=== PATIENT | female | born 1975 | race Hispanic/Latino ===

== ENCOUNTER 2018-04-13 11:28 | Emergency (ER) | payer OTHER, MEDICARE ==
[~2018-04-13] VITALS: Ht 154.9 cm; Wt 150.1 kg
[~2018-04-13 11:28] MED LIST: ADVAIR 500/501 EA INH; ALBUTEROL SULF8.5 GM INH; ASPIR 8181 MG PO; BUMETANIDE1 MG PO; CITALOPRAM HBR20 MG PO; CLONAZEPAM0.5 M1 PO; CLONIDINE HCL0.2 MG PO; COMBIVENT RESPIM4 GM IH; COREG6.25 MG PO; DICYCLOMINE HCL20 MG PO; FERROUS SULFAT325 MG PO; GLIPIZIDE10 MG PO; GLIPIZIDE5 MG PO; HEMOCYTE PLUS1 EACH PO; HYDRALAZINE HCL25 MG PO; ISOSORBIDE MONO30 MG PO; KLONOPIN0.5 MG PO; LASIX20 MG PO; LASIX40 MG PO; LEVEMIR100 UNIT/1 SC; LEVEMIR100 UNIT/1 SQ; LISINOPRIL40 MG PO; METFORMIN HCL500 MG PO; NIFEDIPINE ER30 M1 PO; NORVASC10 MG PO; PANTOPRAZOLE SO40 MG PO; POTASSIUM CHLO20 ME1 PO; PRO AIR; PROAIR HFA INH8.5 GM INH; PROCARDIA XL30 MG PO; RAMIPRIL10 MG PO; SENNA-S TABLET1 EA PO; TYLENOL # 31 EA PO; Trintellix PO; ULTRAM 50MG50 MG PO; WELLBUTRIN XL150 MG PO; XANAX0.25 MG PO; ZOFRAN ODT4 MG SL; ZOFRAN4 MG PO; [UNRECOGNIZED DRUG - OTHER] PO; [UNRECOGNIZED DRUG - OTHER] PO
--- OUTSIDE RECORDS SUMMARY | 2018-04-13 11:32 | XMS REPORT ---
Author Author Admin, [place] Organization [facility] Address [address] [address] Phone Allergies, Adverse Reactions, Alerts Allergy Name Reaction Description Start Date Severity Status Provider No Known Allergies Iza Bledsoe DIE TECHNICIAN Conditions or Problems Problem Name Problem Code Onset Date Status Entry Date Provider Comment Standard Description Annotate COPD, acute exacerbation 491.21 Active Roxana Averyt Obstructive chronic bronchitis with (acute) exacerbation Intertrigo 695.89 Active Roxana Averyt Other specified erythematous conditions Poor dentition 520.9 Active Roxana Averyt Unspecified disorder of tooth development and eruption Tinea pedis 110.4 Active Roxana Averyt Dermatophytosis of foot Annual exam V72.31 Active Roxana Averyt Routine gynecological examination Anxiety, chronic 300.00 Active Roxana Averyt Anxiety state, unspecified BMI 50.0-59.9 Active Roxana Averyt Body Mass Index 50.0-59.9, adult Congestive heart failure 428.0 Active Roxana Averyt Congestive heart failure, unspecified Depression, major 296.20 Active Roxana Averyt Major depressive disorder, single episode, unspecified degree Diabetes mellitus type II 250.00 Active Roxana Averyt Diabetes mellitus without mention of complication, type II or unspecified type, not stated as uncontrolled End stage chronic obstructive airways disease 496 Active Roxana Averyt Chronic airway obstruction, not elsewhere classified End stage renal disease 585.6 Active Roxana Averyt End stage renal disease Hemodialysis V45.11 Active Roxana Averyt Renal dialysis status MORBID OBESITY Active Roxana Averyt Morbid obesity Screening for anemia V78.1 Active Roxana Averyt Screening for other and unspecified deficiency anemia Screening for hyperlipidemia V77.91 Active Roxana Averyt Screening for lipoid disorders Screening for metabolic disorder V77.99 Active Roxana Averyt Screening for other and unspecified endocrine, nutritional, metabolic, and immunity disorders Screening for thyroid disorder V77.0 Active Roxana Averyt Screening for thyroid disorders Renal failure 586 Inactive Roxana Averyt Renal failure, unspecified Medication List Medication Instructions Start Date Stop Date Generic Name NDC Status Provider Patient Instruction AZITHROMYCIN 250 MG ORAL TABLET 2 tablets by mouth on day one then one tablet by mouth each day for a total of 5 days AZITHROMYCIN 34238034890 Active Roxana Averyt Active HYDROCORTISONE 2.5 % EXTERNAL CREAM apply to affected area twice a day under breast for severe red and itchy skin HYDROCORTISONE 40852502540 Active Roxana Averyt Active PREDNISONE 20 MG ORAL TABLET 2 tablets every day for 3 days PREDNISONE 44588084024 Active Roxana Averyt Active TERBINAFINE HCL 1 % EXTERNAL CREAM apply to itchy red skin under breast and on foot daily until resolution of rash TERBINAFINE HCL 80511800632 Active Roxana Averyt Active Vital Signs Date Name Value Unit Range Description blood pressure, diastolic 69 mm[Hg] BP rudd blood pressure, systolic 100 mm[Hg] BP sys height E&M 61 [in_us] Bdy height pulse rate E&M 95 /min Heart rate temperature E&M 98.7 [degF] Body temperature weight E&M 312.38 [lb_av] Weight Measured blood pressure, diastolic 74 mm[Hg] BP rudd blood pressure, systolic 118 mm[Hg] BP sys height E&M 61 [in_us] Bdy height pulse rate E&M 92 /min Heart rate respiratory rate E&M 15 /min Resp rate temperature E&M 98.8 [degF] Body temperature weight E&M 301.38 [lb_av] Weight Measured Diagnostic Results Date Name Value Unit Range Description Lab Report: CBC With Differential/Platelet, Comp. Metabolic Panel (14), ... - Chemistry thyroid stimulating hormone, serum 2.120 u[iU]/mL 0.450-4.500 very low density lipoproteins 39 mg/dL 5-40 chloride, serum 91 mmol/L 96-106 urea nitrogen, blood 29 mg/dL 6-24 Lab Report: CBC With Differential/Platelet, Comp. Metabolic Panel (14), ... - Hematology mean corpuscular hemoglobin concentration, RBC 32.6 G/DL % 31.5-35.7 erythrocyte (RBC) count 3.95 X10E6/UL 10*6/mm3 3.77-5.28 Lab Report: CBC With Differential/Platelet, Comp. Metabolic Panel (14), ... - Chemistry Absolute Neutrophils 6.2 X10E3/UL 10*3/uL 1.4-7.0 LDL cholesterol, serum 107 mg/dL 0-99 urea nitrogen/creatinine ratio, serum 6 9-23 Lab Report: CBC With Differential/Platelet, Comp. Metabolic Panel (14), ... - Hematology mean corpuscular volume, RBC 96 fL 79-97 Lab Report: CBC With Differential/Platelet, Comp. Metabolic Panel (14), ... - Chemistry HDL cholesterol, serum 58 mg/dL >39 Lab Report: CBC With Differential/Platelet, Comp. Metabolic Panel (14), ... - Hematology monocytes as percent of blood leukocytes 8 % Not Estab. Lab Report: CBC With Differential/Platelet, Comp. Metabolic Panel (14), ... - Chemistry albumin/globulin ratio, serum 1.3 1.2-2.2 creatinine, serum 5.11 mg/dL 0.57-1.00 cholesterol, serum 204 mg/dL 906-104 2493/11/02 bilirubin, serum, total 0.4 mg/dL 0.0-1.2 Lab Report: CBC With Differential/Platelet, Comp. Metabolic Panel (14), ... - Hematology Eosinophil Absolute Count 0.1 X10E3/UL 10*3/uL 0.0-0.4 Lab Report: Ct, Ng, Trich vag by HI - Lab chlamydia DNA probe Negative Negative Lab Report: CBC With Differential/Platelet, Comp. Metabolic Panel (14), ... - Chemistry aspartate aminotransferase (SGOT), serum 24 U/L 0-40 Lab Report: CBC With Differential/Platelet, Comp. Metabolic Panel (14), ... - Hematology red blood cell distribution width 16.4 % 12.3-15.4 leukocyte count, blood 9.5 X10E3/UL 10*3/mm3 3.4-10.8 Lab Report: CBC With Differential/Platelet, Comp. Metabolic Panel (14), ... - Chemistry potassium, serum 4.6 mmol/L 3.5-5.2 albumin, serum 4.4 g/dL 3.5-5.5 immature granulocytes, percentage of total cells, blood 0 % Not Estab. Lab Report: CBC With Differential/Platelet, Comp. Metabolic Panel (14), ... - Hematology lymphocyte count, blood, automated 2.4 X10E3/UL 10*3/mm3 0.7-3.1 hematocrit, blood 38.0 % 34.0-46.6 Lab Report: Ct, Ng, Trich vag by HI - Microbiology Neisseria gonorrhoeae DNA probe Negative Negative Lab Report: CBC With Differential/Platelet, Comp. Metabolic Panel (14), ... - Chemistry sodium, serum 140 mmol/L 134-144 Lab Report: CBC With Differential/Platelet, Comp. Metabolic Panel (14), ... - Hematology neutrophils as percent of blood leukocytes 65 % Not Estab. basophils as percent of blood leukocytes 0 % Not Estab. Lab Report: CBC With Differential/Platelet, Comp. Metabolic Panel (14), ... - Chemistry carbon dioxide, venous blood 28 mmol/L 20-29 triglyceride, serum, fasting 197 mg/dL 0-149 calcium, serum 9.8 mg/dL 8.7-10.2 alanine aminotransferase (SGPT), serum 34 U/L 0-32 Office Visit: Adult Followup - COPD exacerbation, DM II, skin concern - Chemistry blood glucose, fasting 222 mg/dL Lab Report: CBC With Differential/Platelet, Comp. Metabolic Panel (14), ... - Hematology mean corpuscular hemoglobin, RBC 31.4 pg 26.6-33.0 Lab Report: CBC With Differential/Platelet, Comp. Metabolic Panel (14), ... - Chemistry protein, total, serum 7.9 g/dL 6.0-8.5 alkaline phosphatase, serum 160 U/L 39-117 Lab Report: CBC With Differential/Platelet, Comp. Metabolic Panel (14), ... - Hematology hemoglobin, blood 12.4 g/dL 11.1-15.9 lymphocytes as percent of blood leukocytes 25 % Not Estab. Lab Report: CBC With Differential/Platelet, Comp. Metabolic Panel (14), ... - Chemistry hemoglobin A1C, blood, as % of total hemoglobin 7.4 % 4.8-5.6 Lab Report: CBC With Differential/Platelet, Comp. Metabolic Panel (14), ... - Genetics/fertility eGFR if 11 mL/min/1.73m2 >59 Lab Report: CBC With Differential/Platelet, Comp. Metabolic Panel (14), ... - Hematology basophil count, absolute 0.0 x10E3/uL 0.0-0.2 Lab Report: CBC With Differential/Platelet, Comp. Metabolic Panel (14), ... - Chemistry globulin, serum 3.5 1.5-4.5 Estimated Glomerular Filtration Rate (calc) 10 mL/min/1.73m2 >59 Lab Report: CBC With Differential/Platelet, Comp. Metabolic Panel (14), ... - Hematology eosinophils as percent of blood leukocytes 2 % Not Estab. Lab Report: CBC With Differential/Platelet, Comp. Metabolic Panel (14), ... - Chemistry blood glucose, random 164 mg/dL 65-99 Lab Report: CBC With Differential/Platelet, Comp. Metabolic Panel (14), ... - Hematology monocyte count, blood, automated 0.7 X10E3/UL 10*3/uL 0.1-0.9 platelet count 337 X10E3/UL 10*3/mm3 150-379 Encounters Date Encounter Provider Code Facility 13:50:29 [facility] [employer] Est Patient Detailed - [id number] Roxana Lin [id number] [facility]
--- OUTSIDE RECORDS SUMMARY | 2018-04-13 11:32 | XMS REPORT ---
Author Author [facility] Address Unknown Phone Unavailable Care Team Providers Care Senior Application Security Consultant Name Role Phone CINDY BLOCK Unavailable Unavailable Problems This patient has no known problems. Allergies, Adverse Reactions, Alerts This patient has no known allergies or adverse reactions. Medications This patient has no known medications. Results Test Description Test Time Test Comments Text Results Atomic Results Result Comments IR CONSULT [place] [address] Patient Name: KENZIE AVENDAÑO MR #: [id number] : 1975 Age/Sex: 41/F Req #: [id number] Adm Physician: CINDY BLOCK MD Ordered by: MARLYN MELARA, BUFFY MELARA Report #: [id number] Location: [facility]/SURG3 Room/Bed: [facility] [place] Procedure: [id number] DX/IR CONSULT Exam Date: Exam Time: REPORT STATUS: Signed PROCEDURE: TUNNELED DIALYSIS CATHETER COMPARISON: Temporary central venous catheter placement 12/19/2016. INDICATIONS: Need for long-term central venous access. COMPLICATIONS: None. MEDICATIONS: None. BLOOD LOSS: 2.0 cc. PROCEDURE: The presence of multiple right internal jugular central venous catheters was noted. New access was chosen to decrease the likelihood of infection. The patient was placed supine on the angiography table. The right neck was prepped and draped in usual sterile fashion. 1% lidocaine was infused into the subcutaneous tissues for local anesthesia. Utilizing direct sonographic guidance, a 21 gauge needle was advanced into the right internal jugular vein. The 0.018 inch wire was advanced centrally and utilizing fluoroscopic guidance. An access sheath was placed over the wire to secure the vascular access. The wire was upsized to a 0.035 inch wire. Attention was directed toward the creation of the subcutaneous tunnel. One percent lidocaine was infused into the subcutaneous tissues for local anesthesia. A skin incision was made with a #11 blade. The catheter was advanced through the skin and out the venous access site. Serial dilations were performed over the wire. A peel-away sheath was advanced over the wire. The stylette and wire were removed. The catheter was placed into the peel-away sheath. The peel-away sheath was removed. The catheter tip was positioned within the right atrium. The lumens demonstrated proper function with aspiration and flush of saline. The lumens were flushed with sterile saline. The catheter was secured to the skin with 3-0 Ethilon suture. The venous access site was closed with a suture and Dermabond. There are no immediate complications. The patient tolerated the procedure well. The patient was transferred to the post procedure area in stable unchanged condition for further monitoring. Upon completion of the procedure, the patient had a right internal jugular tunneled central venous catheter, right internal jugular temporary central venous hemodialysis catheter, and right internal jugular temporary triple-lumen central venous catheter. CONCLUSION: Successful placement of a right internal jugular tunneled central venous hemodialysis catheter utilizing fluoroscopic and sonographic guidance. Dictated by: Cindy Paige M.D. on 01/07/2017 at 15:09 Electronically approved by: Cindy Paige M.D. on 01/07/2017 at 15:09 Dictated By: CINDY PAIGE MD 1504 Transcribed By: ENRIQUE on 01/07/17 1505 COPY TO: BUFFY CLINE SPECIAL PROCEDURE IN DIRECTOR RELIGIOUS EDUCATION [place] [address] Patient Name: KENZIE AVENDAÑO MR #: [id number] : 1975 Age/Sex: 41/F Req #: [id number] Adm Physician: CINDY BLOCK MD Ordered by: BUFFY CLINE MD, MD Report #: [id number] Location: MED/SURG3 Room/Bed: [facility] [place] Procedure: [id number] IR/SPECIAL PROCEDURE IN DIRECTOR RELIGIOUS EDUCATION Exam Date: Exam Time: REPORT STATUS: Signed PROCEDURE: TUNNELED DIALYSIS CATHETER COMPARISON: Temporary central venous catheter placement 12/19/2016. INDICATIONS: Need for long-term central venous access. COMPLICATIONS: None. MEDICATIONS: None. BLOOD LOSS: 2.0 cc. PROCEDURE: The presence of multiple right internal jugular central venous catheters was noted. New access was chosen to decrease the likelihood of infection. The patient was placed supine on the angiography table. The right neck was prepped and draped in usual sterile fashion. 1% lidocaine was infused into the subcutaneous tissues for local anesthesia. Utilizing direct sonographic guidance, a 21 gauge needle was advanced into the right internal jugular vein. The 0.018 inch wire was advanced centrally and utilizing fluoroscopic guidance. An access sheath was placed over the wire to secure the vascular access. The wire was upsized to a 0.035 inch wire. Attention was directed toward the creation of the subcutaneous tunnel. One percent lidocaine was infused into the subcutaneous tissues for local anesthesia. A skin incision was made with a #11 blade. The catheter was advanced through the skin and out the venous access site. Serial dilations were performed over the wire. A peel-away sheath was advanced over the wire. The stylette and wire were removed. The catheter was placed into the peel-away sheath. The peel-away sheath was removed. The catheter tip was positioned within the right atrium. The lumens demonstrated proper function with aspiration and flush of saline. The lumens were flushed with sterile saline. The catheter was secured to the skin with 3-0 Ethilon suture. The venous access site was closed with a suture and Dermabond. There are no immediate complications. The patient tolerated the procedure well. The patient was transferred to the post procedure area in stable unchanged condition for further monitoring. Upon completion of the procedure, the patient had a right internal jugular tunneled central venous catheter, right internal jugular temporary central venous hemodialysis catheter, and right internal jugular temporary triple-lumen central venous c atheter. CONCLUSION: Successful placement of a right internal jugular tunneled central venous hemodialysis catheter utilizing fluoroscopic and sonographic guidance. Dictated by: Cindy Paige M.D. on 01/07/2017 at 15:09 Electronically approved by: Cindy Paige M.D. on 01/07/2017 at 15:09 Dictated By: CINDY PAIGE MD 1501 Transcribed By: ENRIQUE on 01/07/17 1505 COPY TO: BUFFY CLINE CHEST SINGLE (PORTABLE) [place] [address] Patient Name: KENZIE AVENDAÑO MR #: [id number] : 1975 Age/Sex: 41/F Req #: [id number] Adm Physician: CINDY BLOCK MD Ordered by: RELL BAGLEY MD Report #: [id number] Location: ICU Room/Bed: ICU [facility] Procedure: [id number] DX/CHEST SINGLE (PORTABLE) Exam Date: 12/19/16 Exam Time: 0945 REPORT STATUS: Signed PROCEDURE: CHEST SINGLE (PORTABLE) COMPARISON: 12/19/2016 at 0539 INDICATIONS: Line placement FINDINGS: Interval placement of a right internal jugular non-tunneled hemodialysis catheter. The tip projects over the low superior vena cava. Endotracheal tube, enteric tube, and right internal jugular low flow central venous catheter are unchanged in appearance. Stable enlargement of the cardiac silhouette with interstitial pulmonary edema. No acute osseous abnormality. Exam is again limited by body habitus. CONCLUSION: Interval placement of a non-tunneled hemodialysis catheter, with the tip projecting over the low superior vena cava. Stable position of remaining support lines and tubes. Stable cardiomegaly and interstitial pulmonary edema. Dictated by: Rell Bagley M.D. on 12/19/2016 at 10:18 Electronically approved by: Rell Bagley M.D. on 12/19/2016 at 10:18 Dictated By: RELL BAGLEY MD 1018 Transcribed By: ENRIQUE on 12/19/16 1018 COPY TO: RELL BAGLEY MD CHEST SINGLE (PORTABLE) [place] [address] Patient Name: KENZIE AVENDAÑO MR #: [id number] : 1975 Age/Sex: 41/F Req #: [id number] Adm Physician: CINDY BLOCK MD Ordered by: RELL LESTER MD Report #: [id number] Location: ICU Room/Bed: ICU [facility] Procedure: [id number] DX/CHEST SINGLE (PORTABLE) Exam Date: 12/19/16 Exam Time: 0500 REPORT STATUS: Signed EXAM: CHEST SINGLE (PORTABLE), AP 1 view DATE: 12/19/2016 8:00 AM Time stamp on exam: 0539 hours INDICATION: Post intubation COMPARISON: AP view of the chest December 16, 2016 FINDINGS: LINES/TUBES: Endotracheal tube terminates 3 cm above the tammy. LUNGS: Limited evaluation of the lungs secondary to technique PLEURA: Limited evaluation HEART AND MEDIASTINUM: Interval enlargement of the cardiomediastinal silhouette. BONES AND SOFT TISSUES: No acute findings. IMPRESSION: Very limited view of the chest due to technique. The endotracheal tube terminates 3 cm above the tammy. Interval enlargement of the cardiomediastinal silhouette particularly the upper mediastinum. A repeat nonrotated exam is recommended. Signed by: Dr. Nneka Mcintosh M.D. on 12/19/2016 6:57 AM Dictated By: NNEKA MCINTOSH MD 6 Transcribed By: EZEKIEL on 12/19/16656 COPY TO: RELL LESTER MD IR CONSULT [place] [address] Patient Name: KENZIE AVENDAÑO MR #: [id number] : 1975 Age/Sex: 41/F Req #: [id number] Adm Physician: CINDY BLOCK MD Ordered by: MARLYN MELARA, BUFFY MELARA Report #: [id number] Location: ICU Room/Bed: ICU [facility] Procedure: [id number] DX/IR CONSULT Exam Date: Exam Time: REPORT STATUS: Signed PROCEDURE: CHEST SINGLE (PORTABLE) COMPARISON: 12/19/2016 at 0539 INDICATIONS: Line placement FINDINGS: Interval placement of a right internal jugular non-tunneled hemodialysis catheter. The tip projects over the low superior vena cava. Endotracheal tube, enteric tube, and right internal jugular low flow central venous catheter are unchanged in appearance. Stable enlargement of the cardiac silhouette with interstitial pulmonary edema. No acute osseous abnormality. Exam is again limited by body habitus. CONCLUSION: Interval placement of a non-tunneled hemodialysis catheter, with the tip projecting over the low superior vena cava. Stable position of remaining support lines and tubes. Stable cardiomegaly and interstitial pulmonary edema. Dictated by: Rell Bagley M.D. on 12/19/2016 at 10:18 Electronically approved by: Rell Bagley M.D. on 12/19/2016 at 10:18 Dictated By: RELL BAGLEY MD 1018 Transcribed By: ENRIQUE on 12/19/16 1018 COPY TO: BUFFY CLINE GUIDANCE FOR VASCULAR ACCES [place] [address] Patient Name: KENZIE AVENDAÑO MR #: [id number] : 1975 Age/Sex: 41/F Req #: [id number] Adm Physician: CINDY BLOCK MD Ordered by: JUAN DAVID CLINE MD Report #: [id number] Location: ICU Room/Bed: ICU [facility] Procedure: [id number] US/US GUIDANCE FOR VASCULAR ACCES Exam Date: 12/19/16 Exam Time: 906 REPORT STATUS: Signed PROCEDURE: ULTRASOUND GUIDANCE FOR VASCULAR ACCESS COMPARISON: Chest radiograph 12/19/2016. Preprocedure diagnosis: Acute kidney injury Post procedure diagnosis: Acute kidney injury. Estimated blood loss: Minimal Complications: No immediate Blood products administered: None Specimens: None Implants: 13 [place] 15 cm qbxoay-qemfa-yghvzlv venous catheter Sedation/anesthesia: None Condition upon completion of procedure: Critical Disposition: Remain in ICU INDICATIONS: Trialysis Catheter Placement FINDINGS: Informed consent was obtained from the next of kin and documented in the medical record. Preliminary sonographic evaluation confirmed patency of the right internal jugular vein, evidenced by compressibility. The right cervical region was then prepped and draped in standard sterile fashion. 1% lidocaine was infiltrated into the skin and subcutaneous tissues for local anesthesia. Then under continuous sonographic guidance, an 18 gauge singlewall needle was advanced into the right internal jugular vein. A permanent sonographic image was stored in the medical record. A 0.035 inch wire was then advanced to a depth of 30 cm with continuous cardiac rhythm monitoring. The needle was removed over the wire and the tract was dilated. Then a 13 [place], 15 cm triple-lumen high flow central venous catheter was advanced over the wire to full depth. The wire was removed. Each port was tested and showed adequate bidirectional flow, and was then flushed with sterile saline. The catheter was secured to the skin with monofilament nylon suture and a sterile dressing was applied. Patient tolerated the procedure without immediate complication. CONCLUSION: Successful placement of a 13 [place], 15 cm Trialysis catheter under sonographic guidance. A post procedure chest radiograph was requested to confirm line positioning prior to use. Dictated by: Rell Bagley M.D. on 12/19/2016 at 12:46 Electronically approved by: Rell Bagley M.D. on 12/19/2016 at 12:46 Dictated By: RELL BAGLEY MD 1246 T ranscribed By: ENRIQUE on 12/19/16 1246 COPY TO: JUAN DAVID CLINE MD NON-TUNNELLED CVC CATH PLACMNT [place] [address] Patient Name: KENZIE AVENDAÑO MR #: [id number] : 1975 Age/Sex: 41/F Req #: [id number] Adm Physician: CINDY BLOCK MD Ordered by: MARLYN MELARA, BUFFY MELARA Report #: [id number] Location: ICU Room/Bed: ICU [facility] Procedure: [id number] IR/NON- TUNNELLED CVC CATH PLACMNT Exam Date: 12/19/16 Exam Time: 0900 REPORT STATUS: Signed PROCEDURE: ULTRASOUND GUIDANCE FOR VASCULAR ACCESS COMPARISON: Chest radiograph 12/19/2016. Preprocedure diagnosis: Acute kidney injury Post procedure diagnosis: Acute kidney injury. Estimated blood loss: Minimal Complications: No immediate Blood products administered: None Specimens: None Implants: 13 [place] 15 cm gbwika-iswgk-pqcuroo venous catheter Sedation/anesthesia: None Condition upon completion of procedure: Critical Disposition: Remain in ICU INDICATIONS: Trialysis Catheter Placement FINDINGS: Informed consent was obtained from the next of kin and documented in the medical record. Preliminary sonographic evaluation confirmed patency of the right internal jugular vein, evidenced by compressibility. The right cervical region was then prepped and draped in standard sterile fashion. 1% lidocaine was infiltrated into the skin and subcutaneous tissues for local anesthesia. Then under continuous sonographic guidance, an 18 gauge singlewall needle was advanced into the right internal jugular vein. A permanent sonographic image was stored in the medical record. A 0.035 inch wire was then advanced to a depth of 30 cm with continuous cardiac rhythm monitoring. The needle was removed over the wire and the tract was dilated. Then a 13 [place], 15 cm triple-lumen high flow central venous catheter was advanced over the wire to full depth. The wire was removed. Each port was tested and showed adequate bidirectional flow, and was then flushed with sterile saline. The catheter was secured to the skin with monofilament nylon suture and a sterile dressing was applied. Patient tolerated the procedure without immediate complication. CONCLUSION: Successful placement of a 13 [place], 15 cm Trialysis catheter under sonographic guidance. A post procedure chest radiograph was requested to confirm line positioning prior to use. Dictated by: Rell Bagley M.D. on 12/19/2016 at 12:46 Electronically approved by: Rell Bagley M.D. on 12/19/2016 at 12:46 Dictated By: RELL BAGLEY MD 1246 Transcribed By: ENRIQUE on 12/19/16 1246 COPY TO: BUFFY CLINE [facility] (PORTABLE) [place] [id number] Patient Name: KENZIE AVENDAÑO MR #: [id number] : 1975 Age/Sex: 41/F Req #: [id number] Adm Physician: CINDY BLOCK MD Ordered by: RELL ROSADO MD Report #: [id number] Location: ICU Room/Bed: ICU [facility] Procedure: [id number] DX/CHEST SINGLE (PORTABLE) Exam Date: 12/18/16 Exam Time: 1040 REPORT STATUS: Signed PROCEDURE: A single AP view of the chest. COMPARISON: None. INDICATIONS: CENTRAL LINE PLACEMENT FINDINGS: Lines/tubes: A right central line has been placed. Tip of this is difficult to evaluate but likely overlying the SVC. Endotracheal tube present with its tip at the level of the clavicles. There is an NG tube extending below the diaphragm. Lungs: Moderate central pulmonary vascular congestion. Pleura: There is no pleural effusion or pneumothorax. Heart and mediastinum: The heart is enlarged. Bones: No acute bony abnormality. IMPRESSION: 1. Lines and tubes as described above. 2. Moderate central pulmonary vascular congestion. Jose Goyal D.O. Dictated by: Jose Goyal D.O. on 12/18/2016 at 11:27 Electronically ap proved by: Jose Goyal D.O. on 12/18/2016 at 11:27 Dictated By: JOSE GOYAL DO 26 Transcribed By: ENRIQUE on 12/18/16 1127 COPY TO: RELL ROSADO MD CHEST SINGLE (PORTABLE) [place] [address] Patient Name: KENZIE AVENDAÑO MR #: [id number] : 1975 Age/Sex: 41/F Req #: [id number] Adm Physician: CINDY BLOCK MD Ordered by: GILBERT GUPTA MD Report #: [id number] Location: ICU Room/Bed: ICU 193-1 Procedure: [id number] DX/CHEST SINGLE (PORTABLE) Exam Date: 12/16/16 Exam Time: 0500 REPORT STATUS: Signed EXAMINATION: CHEST SINGLE (PORTABLE) INDICATION: CHF. COMPARISON: 12/14/2016 11/28/2016, 11/26/2016 and 09/09/2016 FINDINGS: TUBES and LINES: None. LUNGS: Lungs are well inflated. There are bibasilar atelectasis. Improving prominence of the central pulmonary vasculature, consistent with pulmonary venous congestion. There is evidence of improving interlobular septi thickening, however, is not conspicuous due to patient's body habitus. PLEURA: No pleural effusion or pneumothorax. HEART AND MEDIASTINUM: Cardiac size is severely enlarged. There are atherosclerotic calcifications within the aorta. BONES AND SOFT TISSUES: No acute osseous lesion. Soft tissues are unremarkable. UPPER ABDOMEN: No free air under the diaphragm. IMPRESSION: 1. Improving edema. 2. Otherwise, stable study Signed by: Dr. Rafi Robledo M.D. on 12/16/2016 6:27 AM Dictated By: RAFI YATES MD 6 Transcribed By: EZEKIEL on 12/16/16626 COPY TO: GILBERT GUPTA MD HEPTOBILIARY W PHARM [place] [address] Patient Name: KENZIE AVENDAÑO MR #: [id number] : 1975 Age/Sex: 41/F Req #: [id number] Adm Physician: CINDY BLOCK MD Ordered by: RELL ROSADO MD Report #: [id number] Location: ICU Room/Bed: ICU 193-1 Procedure: [id number] NM/HEPTOBILIARY W PHARM Exam Date: Exam Time: REPORT STATUS: Signed HIDA Scan with Morphine Augmentation Clinical information: 41 F with severe abdominal pain x 5 days Report: Following the administration of 6.6 of Tc-99m mebrofenin, dynamic images of the abdomen in the anterior projection were obtained through 60 minutes. Morphine sulfate 2 mg was administered via slow IV push and additional images were obtained through 30 minutes. Perfusion to the liver is normal. Extraction of tracer by the liver parenchyma is mildly decreased. Tracer appears within the biliary tract by 10 minutes post injection of tracer. Tracer is seen within the small bowel by 25 minutes. The gallbladder does not fill during the initial 60 minutes of dynamic imaging. Following administration of morphine, the gallbladder also does not fill. Impression: 1. Absence of fi lling of the gallbladder, even following administration of morphine, is compatible with the diagnosis of acute cystic duct obstruction/acute cholecystitis. 2. Scan evidence of mild to moderate hepatocyte dysfunction. Signed by: Dr. Jaspreet Durbin M.D. on 12/17/2016 1:20 PM Dictated By: JASPREET DURBIN MD 1320 Transcribed By: EZEKIEL on 12/17/16 1320 COPY TO: RELL ROSADO MD US ABDOMEN COMPLETE [place] [address] Patient Name: KENZIE AVENDAÑO MR #: [id number] : 1975 Age/Sex: 41/F Req #: [id number] Adm Physician: CINDY BLOCK MD Ordered by: RELL LESTER MD Report #: [id number] Location: ICU Room/Bed: ICU 193-1 Procedure: [id number] US/US ABDOMEN COMPLETE Exam Date: Exam Time: REPORT STATUS: Signed PROCEDURE: ABDOMINAL ULTRASOUND COMPARISON: None. INDICATIONS: CHEST PAIN, CHF, COPD FINDINGS: Liver: Enlarged measuring 22.6 cm. Normal hepatic parenchymal echogenicity. No focal mass. Main portal vein: Enlarged measuring 1.4 cm with normal hepatopedal flow. Gallbladder: Distended filled with biliary sludge. Common Bile Duct: Measures 1.1 cm but no definite echogenic filling defect. Sonographic Benitez's sign: Negative Right kidney: Measures 10.2 x 5.6 x 6.3 cm No solid or cystic mass, echogenic calculi, or hydronephrosis. Normal parenchymal echogenicity. Left kidney: Measures 11.0 x 6.5 x 6.5 cm No solid or cystic mass, echogenic calculi, or hydronephrosis. Normal parenchymal echogenicity. Spleen: Measures 10.9 x 6.0 x 11.0 cm Pancreas: The visualized portions of the pancreas are normal. Inferior vena cava: Normal. Aorta: Obscured by gas Ascites: None. CONCLUSION: 1. Distended gallbladder filled with sludge. 2. Dilated common bile duct measures 1.1 cm. 3. Enlarged liver. Jose Goyal D.O. Dictated by: Jose Goyal D.O. on 12/16/2016 at 17:46 Electronically approved by: Joes Goyal D.O. on 12/16/2016 at 17:46 Dictated By: JOSE GOYAL DO 45 Transcribed By: ENRIQUE on 12/16/161745 COPY TO: TERRY LESTER MD CHEST [facility] (PORTABLE) [place] [address] Patient Name: KENZIE AVENDAÑO MR #: [id number] : 1975 Age/Sex: 41/F Req #: [id number] [facility] Physician: Ordered by: GILBERT GUPTA MD Report #: [id number] Location: ER Room/Bed: Procedure: [id number] DX/CHEST SINGLE (PORTABLE) Exam Date: 12/14/16 Exam Time: 2250 REPORT STATUS: Signed EXAMINATION: CHEST SINGLE (PORTABLE) INDICATION: Shortness of breath, chest pain COMPARISON: 11/28/2016, 11/26/2016 and 09/09/2016 FINDINGS: TUBES and LINES: None. LUNGS: Lungs are well inflated. There are bibasilar atelectasis. There is mild prominence of the central pulmonary vasculature, consistent with pulmonary venous congestion. There is evidence of recurrent interlobular septi thickening, however, is not conspicuous due to patient's body habitus. PLEURA: No pleural effusion or pneumothorax. HEART AND MEDIASTINUM: Cardiac size is severely enlarged. There are atherosclerotic calcifications within the aorta. BONES AND SOFT TISSUES: No acute osseous lesion. Soft tissues are unremarkable. UPPER ABDOMEN: No free air under the diaphragm. IMPRESSION: 1. Findings are compatible with recurrent cardiogenic pulmonary edema Signed by: Dr. Rafi Robledo M.D. on 12/14/2016 11:40 PM Dictated By: RAFI YATES MD 39 Transcribed By: EZEKIEL on 12/14/162339 COPY TO: GILBERT GUPTA MD CHEST 2 VIEWS [place] [address] Patient Name: KENZIE AVENDAÑO MR #: [id number] : 1975 Age/Sex: 41/F Req #: [id number] Adm Physician: CINDY BLOCK MD Ordered by: RELL LESTER MD Report #: [id number] Location: MED/SURG2 Room/Bed: 211-1 Procedure: DX/CHEST 2 VIEWS Exam Date: 12/06/16 Exam Time: 1015 REPORT STATUS: Signed PROCEDURE: X-RAY CHEST, TWO VIEWS COMPARISON: [facility], , CHEST 2 VIEWS, 12/03/2016, 5:38. INDICATIONS: SHORTNES OF BREATH FINDINGS: LUNGS: Mild central pulmonary vascular congestion is unchanged. PLEURA: No effusions or pneumothorax. HEART T MEDIASTINUM: The heart remains enlarged.. BONES T SOFT TISSUES: No acute findings. CONCLUSION: Cardiomegaly with central pulmonary vascular congestion. Jose Goyal D.O. Dictated by: Jose Goyal D.O. on 12/06/2016 at 10:38 Electronically approved by: Jose Goyal D.O. on 12/06/2016 at 10:38 Dictated By: JOSE GOYAL DO 1038 Transcribed By: ENRIQUE on 12/06/16 1038 COPY TO: RELL LESTER MD CHEST 2 VIEWS [place] [address] Patient Name: KENZIE AVENDAÑO MR #: [id number] : 1975 Age/Sex: 41/F Req #: [id number] Adm Physician: CINDY BLOCK MD Ordered by: CINDY BLOCK MD Report #: [id number] Location: MED/SURG Room/Bed: 101-1 Procedure: [id number] DX/CHEST 2 VIEWS Exam Date: 12/03/16 Exam Time: 0538 REPORT STATUS: Signed PROCEDURE: Frontal and lateral views of the chest. COMPARISON: [facility], DX, CHEST SINGLE (PORTABLE), 11/29/2016, 5:22. INDICATIONS: COUGH, SHORTNESS OF BREATH FINDINGS: See impression. IMPRESSION: 1. exam limited by soft tissue attenuation from patient's large body habitus. 2. Enlarged cardiac silhouette, central pulmonary venous congestion and mild perihilar interstitial opacities, likely representing mild interstitial edema. 3. Questionable infrahilar opacity with bronchograms on the lateral view, which may represent pneumonia in the appropriate clinical setting, however, limited, as described above. 4. No pleural effusion. 5. Preliminary report provided by Dr. Vasquez 12/03/2016 at 0800 hours Bert Vasquez M.D. Dictated by: Bert Vasquez M.D. on 12/04/2016 at 13:47 Electronically approved by: Bert Vasquez M.D. on 12/04/2016 at 13:47 Dictated By: BERT VASQUEZ MD 1347 Transcribed By: ENRIQUE on 12/04/16 1347 COPY TO: CINDY BLOCK MD CHEST SINGLE (PORTABLE) [place] [address] Patient Name: KENZIE AVENDAÑO MR #: [id number] : 1975 Age/Sex: 41/F Req #: [id number] Adm Physician: CINDY BLOCK MD Ordered by: YI BOBBY MD Report #: [id number] Location: MED/SURG Room/Bed: 101-1 Procedure: [id number] DX/CHEST SINGLE (PORTABLE) Exam Date: 11/29/16 Exam Time: 05 REPORT STATUS: Signed EXAM: CHEST SINGLE (PORTABLE), AP 1 view DATE: 11/29/2016 5:00 AM Time stamp on exam: 0522 hours INDICATION: Respiratory distress status post extubation COMPARISON: AP view of the chest November 27, 2016 FINDINGS: See impression IMPRESSION: The AP image of the chest is essentially nondiagnostic. Interval removal of endotracheal tube. Stable enlargement of the cardiomediastinal silhouette and vascular congestion. Signed by: Dr. Nneka Mcintosh M.D. on 11/29/2016 6:27 AM Dictated By: NNEKA MCINTOSH MD 6 Transcribed By: EZEKIEL on 11/29/16626 COPY TO: YI BOBBY MD CHEST SINGLE (PORTABLE) [place] [address] Patient Name: KENZIE AVENDAÑO MR #: [id number] : 1975 Age/Sex: 41/F Req #: [id number] [facility] Physician: CINDY BLOCK MD Ordered by: YI BOBBY MD Report #: [id number] Location: ICU Room/Bed: ICU 189-1 Procedure: [id number] DX/CHEST SINGLE (PORTABLE) Exam Date: 11/28/16 Exam Time: 0500 REPORT STATUS: Signed EXAM: CHEST SINGLE (PORTABLE), AP 1 view DATE: 11/28/2016 5:00 AM Time stamp on exam: 0526 hours INDICATION: Shortness of breath COMPARISON: AP view of the chest November 26, 2016 FINDINGS: LINES/TUBES: The endotracheal tube is no longer visualized. LUNGS: Poorly visualized lung castro, possible pulmonary vascular congestion PLEURA: Not well visualized HEART AND MEDIASTINUM: Stable appearance BONES AND SOFT TISSUES: No acute findings. IMPRESSION: The endotracheal tube has been removed. Signed by: Dr. Nneka Mcintosh M.D. on 11/28/2016 6:08 AM Dictated By: NNEKA MCINTOSH MD 7 Transcribed By: EZEKIEL on 11/28/16607 COPY TO: YI BOBBY MD CHEST SINGLE (PORTABLE) [place] [address] Patient Name: KENZIE AVENDAÑO MR #: [id number] : 1975 Age/Sex: 41/F Req #: [id number] Adm Physician: CINDY BLOCK MD Ordered by: YI BOBBY MD Report #: [id number] Location: ICU Room/Bed: [place] [address] Procedure: [id number] DX/CHEST SINGLE (PORTABLE) Exam Date: Exam Time: REPORT STATUS: Signed EXAM: CHEST SINGLE (PORTABLE), AP 1 view DATE: 11/27/2016 5:00 AM Time stamp on exam: 0601 hours INDICATION: Intubated, shortness of breath COMPARISON: PA and lateral view of the chest November 25, 2016 FINDINGS: LINES/TUBES: Endotracheal tube terminates 3.7 cm above the tammy. LUNGS: Not well visualized PLEURA: Not well visualized HEART AND MEDIASTINUM: Stable enlargement of the cardiomediastinal silhouette, not well visualized BONES AND SOFT TISSUES: No acute findings. IMPRESSION: The exam is nondiagnostic. Endotracheal tube terminates 3.7 cm above the tammy. Signed by: Dr. Nneka Mcintosh M.D. on 11/27/2016 6:25 AM Dictated By: NNEKA MCINTOSH MD 4 Transcribed By: EZEKIEL on 11/27/16624 COPY TO: YI BOBBY MD CHEST SINGLE (PORTABLE) [place] [address] Patient Name: KENZIE AVENDAÑO MR #: [id number] : 1975 Age/Sex: 41/F Req #: [id number] Adm Physician: CINDY BLOCK MD Ordered by: YI BOBBY MD Report #: [id number] Location: ICU Room/Bed: ICU [facility] Procedure: [id number] DX/CHEST SINGLE (PORTABLE) Exam Date: Exam Time: REPORT STATUS: Signed PROCEDURE: A single AP view of the chest. COMPARISON: [facility], DX, CHEST 2 VIEWS, 11/25/2016, 23:19. INDICATIONS: ET TUBE PLACEMENT FINDINGS: Underpenetrated portable technique (Radiographs repeated twice). Lines/tubes: Endotracheal tube has been placed; its distal tip appears located just proximal to the tammy. Lungs: Increased density throughout the chest could be in part due to underpenetration however, concerning for pulmonary edema. Pleura: There is no pneumothorax. Cannot exclude bilateral pleural effusions. Heart and mediastinum: The cardiac silhouette appears moderately enlarged. Bones: No acute bony abnormality. IMPRESSION: 1. ET tube somewhat low in position. Consider withdrawing 2 cm. 2. Probably bilateral pulmonary edema. Surendra Ko M.D. Dictated by: Surendra Ko M.D. on 11/26/2016 at 14:41 Electronically approved by: Surendra Ko M.D. on 11/26/2016 at 14:41 Dictated By: MARCIO KO MD, MD 144 Transcribed By: ENRIQUE on 11/26/16 144 COPY TO: YI BOBBY MD CHEST 2 VIEWS [place] [address] Patient Name: KENZIE AVENDAÑO MR #: [id number] : 1975 Age/Sex: 41/F Req #: [id number] Adm Physician: Ordered by: GILBERT GUPTA MD Report #: [id number] Location: ER Room/Bed: Procedure: [id number] DX/CHEST 2 VIEWS Exam Date: Exam Time: REPORT STATUS: Signed EXAM: CHEST 2 VIEWS, PA and lateral DATE: 11/25/2016 10:46 PM Time stamp on exam: November 25, 2016 INDICATION: Sepsis, swollen legs, shortness of breath COMPARISON: PA and lateral view of the chest September 21, [address] of the chest December 09, 2015 FINDINGS: The lateral view is non-diagnostic due to technique. LINES/TUBES: None LUNGS: Interval increased vascular congestion. PLEURA: No effusions or pneumothorax. HEART AND MEDIASTINUM: Stable enlargement of the cardiomediastinal silhouette. BONES AND SOFT TISSUES: No acute findings. IMPRESSION: Interval increased vascular congestion. Signed by: Dr. Nneka Mcintosh M.D. on 11/25/2016 11:51 PM Dictated By: NNEKA MCINTOSH MD 50 Transcribed By: EZEKIEL on 11/25/162350 COPY TO: GILBERT GUPTA MD
[2018-04-13] MEDS ORDERED: ALBUTEROL/IPRATROPIUM 3 ML NEB NEB PRN (11:45)
[2018-04-13] MEDS ORDERED: SODIUM CHLORIDE 0.9% 1000ML 1,000 ML IV SCH (11:45)
--- NOTE | 2018-04-13 12:28 | NUR ---
PINK LIMB ALERT PLACED TO LEFT WRIST
[2018-04-13 12:32] LABS: BASOPHILS % 0.3 % (0.0-1.0); EOSINOPHILS # (AUTO) 0.1 (0.0-0.4); EOSINOPHILS % 1.1 % (0.0-6.0); HEMATOCRIT 36.5 % (34.2-44.1); LYMPHOCYTES # (AUTO) 1.9 (1.0-3.2); LYMPHOCYTES % 18.2 % (18.0-39.1); MEAN CORPUSCULAR HEMOGLOBIN 32.4 pg (28-32); MEAN CORPUSCULAR HGB CONC 30.1 g/dL (31-35); MEAN CORPUSCULAR VOLUME 107.4 fL (81-99); MONOCYTES # (AUTO) 0.6 (0.2-0.8); MONOCYTES % 5.4 % (4.4-11.3); NEUTROPHILS # (AUTO) 7.8 (2.1-6.9); NEUTROPHILS % 74.2 % (38.7-80.0); PLATELET COUNT 332 x10e3/uL (140-360); RED CELL DISTRIBUTION WIDTH 16.3 % (11.7-14.4)
[2018-04-13 12:53] LABS: ALBUMIN/GLOBULIN RATIO 0.6 (0.8-2.0); ANION GAP 18.2 mmol/L (8-16); CALCIUM 8.9 mg/dL (8.4-10.2); CREATININE, SERUM 7.95 mg/dL (0.57-1.11); POTASSIUM 4.2 mmol/L (3.5-5.1)
[2018-04-13 13:00] LABS: CREATINE KINASE MB 1.4 ng/mL (0-5.0)
--- NOTE | 2018-04-13 14:01 | Diagnostic Imaging Report ---
Examination: Single AP view of the chest. COMPARISON: Portable chest 12/19/2016 INDICATION: Chest pain, shortness of breath, fever, sore throat since 2 days ago IMPRESSION: Markedly limited exam due to patient's body habitus/underpenetration 1. Lines and Tubes: None 2. Mildly hypoinflated lungs. Mild left basal atelectasis. No definite consolidation. 3. Stable enlargement of the cardiac silhouette. Central pulmonary venous congestion. 4. No acute bony abnormalities. Signed by: Dr. Bert Cho M.D. on 04/13/2018 1:58 PM
[2018-04-13] MEDS ORDERED: CEFTRIAXONE SOD 1 GM VIAL IV SCH (14:45)
[2018-04-13] MEDS ORDERED: DEXAMETHASONE SOD PHOS 10 MG/1 ML VIAL IM ONE (14:45)
[2018-04-13] MEDS ORDERED: CEFTRIAXONE SOD 1 GM/NS 50 ML 50 ML IV SCH (15:00)
[2018-04-13 15:22] LABS: INFLUENZAE A&B ANTIGEN (RAPID) NEGATIVE (NEGATIVE); STREPTOCOCCUS GRP A ANTIGEN NEGATIVE (NEGATIVE)
== END 2018-04-13 19:25 | disposition home or self-care (01) ==
LOC: ER 11:28
DX: R50.9 Fever, unspecified (principal); R05 Cough; R06.09 Other forms of dyspnea; H66.002 Acute suppurative otitis media without spontaneous rupture of ear drum, left ear; J44.1 Chronic obstructive pulmonary disease with (acute) exacerbation; J06.9 Acute upper respiratory infection, unspecified
CPT/HCPCS: 36415; 71045; 80053; 82550; 82553; 83518; 83605; 84484; 85025; 87040; 87070; 87400; 93005; 94640; 99284; J0696; J1100; J7030

== ENCOUNTER 2018-07-21 12:35 | Inpatient (IN) | payer MEDICARE, OTHER ==
[~2018-07-21] VITALS: Ht 154.9 cm; Wt 131.1 kg
--- OUTSIDE RECORDS SUMMARY | 2018-07-21 12:37 | XMS REPORT ---
Author Author Admin, Okay Organization [facility] Address [address] [address] Phone Allergies, Adverse Reactions, Alerts Allergy Name Reaction Description Start Date Severity Status Provider No Known Allergies Ayan Maya MD Conditions or Problems Problem Name Problem Code Onset Date Status Entry Date Provider Comment Standard Description Annotate DEPRESSIVE DISORDER, MAJOR, RECURRENT EPISODE, SEVERE Active Ayan Maya MD Major depressive disorder, recurrent episode, severe degree, without mention of psychotic behavior GENERALIZED ANXIETY DISORDER Active Ayan Maya MD Generalized anxiety disorder Obstructive sleep apnea 327.23 Active Roxana Averyt Obstructive sleep apnea (adult) (pediatric) Astigmatism, bilateral 367.20 Active Garrett Ike OD Astigmatism, unspecified DM 2 without diabetic retinopathy 250.00 Active Garrett Ike OD Diabetes mellitus without mention of complication, type II or unspecified type, not stated as uncontrolled Myopia, bilateral 367.1 Active Garrett Ike OD Myopia Presbyopia - OU 367.4 Active Garrett Ike OD Presbyopia Screening for diabetic retinopathy V80.2 Active Garrett Ike OD Screening for other eye conditions Hypotension of hemodialysis 458.21 Active Roxana Averyt Hypotension of hemodialysis Panic attack 300.01 Active Roxana Averyt Panic disorder without agoraphobia Problem with transportation V60.2 Active Roxana Averyt Inadequate material resources Intertrigo 695.89 Active Roxana Averyt Other specified erythematous conditions Poor dentition 520.9 Active Roxana Averyt Unspecified disorder of tooth development and eruption Tinea pedis 110.4 Active Roxana Averyt Dermatophytosis of foot Annual exam V72.31 Active Roxana Averyt Routine gynecological examination Anxiety, chronic 300.00 Active Roxana Averyt Anxiety state, unspecified BMI 50.0-59.9 Active Roxana Averyt Body Mass Index 50.0-59.9, adult Depression, major 296.20 Active Roxana Averyt Major [...] Active Roxana Averyt End stage renal disease Heart failure with left ventricular ejection fraction greater than or equal to 50 percent 428.9 Active Roxana Averyt Heart failure, unspecified Hemodialysis V45.11 Active Roxana Averyt Renal dialysis status MORBID OBESITY Active Roxana Averyt Morbid obesity COPD, acute exacerbation ICD-491.21 Inactive Roxana Averyt Congestive heart failure 428.0 Inactive Roxana Averyt Congestive heart failure, unspecified Renal failure 586 Inactive Roxana Averyt Renal failure, unspecified Screening for anemia ICD-V78.1 Inactive Roxana Averyt Screening for hyperlipidemia ICD-V77.91 Inactive Roxana Averyt Screening for metabolic disorder ICD-V77.99 Inactive Roxana Averyt Screening for thyroid disorder ICD-V77.0 Inactive Roxana Averyt COPD, acute exacerbation 491.21 Resolved Roxana Averyt Obstructive chronic bronchitis with (acute) exacerbation Screening for anemia V78.1 Resolved Roxana Averyt Screening for other and unspecified deficiency anemia Screening for hyperlipidemia V77.91 Resolved Roxana Averyt Screening for lipoid disorders Screening for metabolic disorder V77.99 Resolved Roxana Averyt Screening for other and unspecified endocrine, nutritional, metabolic, and immunity disorders Screening for thyroid disorder V77.0 Resolved Roxana Averyt Screening for thyroid disorders Medication List Medication Instructions Start Date Stop Date Generic Name NDC Status Provider Patient Instruction ADVAIR DISKUS 250-50 MCG/DOSE INHALATION AEROSOL POWDER BREATH ACTIVATED 1 puff two times a day FLUTICASONE-SALMETEROL 17416926602 Active Roxana Lin Active ALBUTEROL SULFATE (2.5 MG/3ML) 0.083% INHALATION NEBULIZATION SOLUTION 1 via Hand held neb every 4 - 6 hours as needed ALBUTEROL SULFATE 51107436489 Active Roxana Lin Active CLONAZEPAM 0.5 MG ORAL TABLET 1 By Mouth Twice a Day as needed for anxiety CLONAZEPAM 83978840207 Active Ayan Maya MD Active COMBIVENT RESPIMAT 20-100 MCG/ACT INHALATION AEROSOL SOLUTION 1 inhalation 4 times a day as needed for shortness of breath and cough IPRATROPIUM-ALBUTEROL 93155469993 Active Roxana Lin Active FUROSEMIDE 80 MG ORAL TABLET 1 by mouth twice a day FUROSEMIDE 46132632594 Active Roxana Lin Active LEXAPRO 5 MG ORAL TABLET one tablet by mouth every day ESCITALOPRAM OXALATE 79341282243 Active Ayan Maya MD Active TRAZODONE HCL 50 MG ORAL TABLET 1 by mouth nightly at bedtime as needed for sleep TRAZODONE HCL 71688226798 Active Ayan Maya MD Active WELLBUTRIN XL 150 MG ORAL TABLET EXTENDED RELEASE 24 HOUR Take one by mouth daily in the morning BUPROPION HCL 04982134733 Active Ayan Maya MD Active HYDROCORTISONE 2.5 % EXTERNAL CREAM apply to affected area twice a day under breast for severe red and itchy skin HYDROCORTISONE 39810441502 Active Roxana Averyt Active TERBINAFINE HCL 1 % EXTERNAL CREAM apply to itchy red skin under breast and on foot daily until resolution of rash TERBINAFINE HCL 49737994675 Active Roxana Averyt Active AZITHROMYCIN 250 MG ORAL TABLET 2 tablets by mouth on day one then one tablet by mouth each day for a total of 5 days AZITHROMYCIN 250 MG ORAL TABLET 322008 AZITHROMYCIN Inactive PREDNISONE 20 MG ORAL TABLET 2 tablets every day for 3 days PREDNISONE 20 MG ORAL TABLET 968810 PREDNISONE Inactive AZITHROMYCIN 250 MG ORAL TABLET 2 tablets by mouth on day one then one tablet by mouth each day for a total of 5 days AZITHROMYCIN 82478268688 No Longer Active Roxana Averyt Active PREDNISONE 20 MG ORAL TABLET 2 tablets every day for 3 days PREDNISONE 75306005301 No Longer Active Roxana Averyt Active Vital Signs Date Name Value Unit Range Description blood pressure, diastolic 51 mm[Hg] BP rudd blood pressure, systolic 76 mm[Hg] BP sys height E&M 61 [in_us] Bdy height pulse rate E&M 85 /min Heart rate weight E&M 325.40 [lb_av] Weight Measured blood pressure, diastolic 75 mm[Hg] BP rudd blood pressure, systolic 134 mm[Hg] BP sys height E&M 61 [in_us] Bdy height pulse rate E&M 75 /min Heart rate temperature E&M 98.7 [degF] Body temperature weight E&M 319.80 [lb_av] Weight Measured blood pressure, diastolic 68 mm[Hg] BP rudd blood pressure, systolic 101 mm[Hg] BP sys height E&M 61 [in_us] Bdy height pulse rate E&M 82 /min Heart rate temperature E&M 98.5 [degF] Body temperature weight E&M 316 [lb_av] Weight Measured blood pressure, diastolic 69 mm[Hg] BP rudd [...] 5.11 mg/dL 0.57-1.00 cholesterol, serum 204 mg/dL 775-186 1794/11/02 bilirubin, serum, total 0.4 mg/dL 0.0-1.2 Lab [...] of blood leukocytes 2 % Not Estab. Office Visit: Adult Followup - depression, DM II -> BH, +lexapro - Chemistry blood glucose, random 172 mg/dL Lab Report: CBC With Differential/Platelet, Comp. Metabolic Panel (14), ... - Hematology monocyte count, blood, automated 0.7 X10E3/UL 10*3/uL 0.1-0.9 platelet count 337 X10E3/UL 10*3/mm3 150-379 Encounters Date Encounter Provider Code Facility 11:08:49 ASSISTANT PORTFOLIO MANAGER Est Patient Exp Problem - 66137 Roxana Averyt CPT-44407 [facility] 14:01:08 ASSISTANT PORTFOLIO MANAGER Est Patient Detailed - 17265 Roxana Averyt CPT-40795 [facility] 13:50:29 ASSISTANT PORTFOLIO MANAGER Est Patient Detailed - 08529 Roxana Averyt CPT-12139 [facility] Procedures Code Procedure Name Date Entry Date Standard Description CPT-27936 Diagnostic evaluation with medical - 31773 09:31:01 CDT CPT-59195 New Patient Intermediate Opth - 09674 10:57:32 ASSISTANT PORTFOLIO MANAGER
[2018-07-21 13:14] LABS: BASOPHILS % 0.2 % (0.0-1.0); EOSINOPHILS # (AUTO) 0.1 (0.0-0.4); HEMATOCRIT 36.8 % (34.2-44.1); LYMPHOCYTES # (AUTO) 1.1 (1.0-3.2); LYMPHOCYTES % 11.5 % (18.0-39.1); MEAN CORPUSCULAR HEMOGLOBIN 32.2 pg (28-32); MEAN CORPUSCULAR HGB CONC 29.9 g/dL (31-35); MEAN CORPUSCULAR VOLUME 107.6 fL (81-99); MONOCYTES # (AUTO) 0.7 (0.2-0.8); NEUTROPHILS # (AUTO) 7.5 (2.1-6.9); NEUTROPHILS % 79.6 % (38.7-80.0); PLATELET COUNT 357 x10e3/uL (140-360); RED BLOOD COUNT 3.42 x10e6/uL (3.6-5.1); RED CELL DISTRIBUTION WIDTH 15.9 % (11.7-14.4)
--- NOTE | 2018-07-21 13:15 | NUR ---
DIALYSIS ACCESS NEEDLES REMOVED 20 MINS APART WITH PRESSURE DSG AND NO ACTIVE BLEEDING NOTED. +RADIAL PULSE.
[2018-07-21 13:16] LABS: INR 0.81; PROTHROMBIN TIME 11.6 seconds (11.9-14.5)
[2018-07-21 13:17] LABS: PARTIAL THROMBOPLASTIN TIME 35.3 seconds (23.8-35.5)
[2018-07-21 13:23] LABS: ALBUMIN 3.2 g/dL (3.5-5.0); ALBUMIN/GLOBULIN RATIO 0.6 (0.8-2.0); ANION GAP 17.4 mmol/L (8-16); CALCIUM 8.7 mg/dL (8.4-10.2); CREATININE, SERUM 4.33 mg/dL (0.57-1.11); POTASSIUM 4.4 mmol/L (3.5-5.1)
[2018-07-21 13:30] LABS: CREATINE KINASE MB 2.6 ng/mL (0-5.0)
--- NOTE | 2018-07-21 14:12 | Diagnostic Imaging Report ---
EXAM: CHEST SINGLE (PORTABLE), AP Portable DATE: 07/21/2018 Time stamp on exam: 1:10 PM INDICATION: Chest pain COMPARISON: 04/13/2018 FINDINGS: LINES/TUBES: None LUNGS: No consolidations or edema. PLEURA: No effusions or pneumothorax. HEART AND MEDIASTINUM: The heart is enlarged. BONES AND SOFT TISSUES: No acute findings. IMPRESSION: No acute thoracic abnormality. Signed by: Dr. Jose Wells DO on 07/21/2018 2:09 PM
[2018-07-21] MEDS ORDERED: ONDANSETRON HCL INJ 2MG/ML 2ML 2 MG/ML VIAL IV PRN (14:45)
[2018-07-21] MEDS: FAMOTIDINE 20 MG TAB PO SCH (14:45)
[2018-07-21] MEDS ORDERED: SODIUM CHLORIDE FLUSH 10 ML SYR INJ PRN (14:45)
[2018-07-21] MEDS ORDERED: NITROGLYCERIN 0.4 MG SUBL SL PRN (14:45)
[2018-07-21] MEDS ORDERED: MORPHINE SULFATE INJ 4 MG/ML INJ 1ML IV PRN (15:15)
--- NOTE | 2018-07-21 15:25 | NUR ---
report received from Twila. patient to arrive on unit alert and oriented.
--- NOTE | 2018-07-21 17:05 | NUR ---
patient arrived on stretcher, alert and oriented. call dobbins within reach and bed in lowest position.
[2018-07-21 17:10] VITALS: BP 93/61
[2018-07-21 17:19] VITALS: BP 93/61
[2018-07-21 17:39] VITALS: BP 93/61
--- NOTE | 2018-07-21 18:40 | NUR ---
rounded with night court magistrate nurse, patient aware of change. Call dobbins within reach and bed in lowest position.
--- NOTE | 2018-07-21 19:00 | NUR ---
received report from day nurse. patient is resting comfortably in bed. bed is in lowest position and call dobbins is within reach. will continue to monitor patient.
[2018-07-21] MEDS ORDERED: ASPIRIN 81 MG CHEW TAB PO ONE (19:30)
--- NOTE | 2018-07-21 19:50 | History and Physical ---
CHIEF COMPLAINT: Chest pain. HISTORY OF PRESENT ILLNESS: Ms. Correa is a 42-year-old female, morbidly obese, has obstructive sleep apnea and end-stage renal disease, presented to the emergency room with chest pain going on that started when she was in hemodialysis. She denies any nausea or vomiting. She has history of hypertension and diabetes. She is noncompliant with CPAP machine. REVIEW OF SYSTEMS: GENERAL: Denies any fever or chills. HEAD: Denies any head trauma. ENT: Denies any earaches. CVS: Chest pain. RESPIRATORY: Denies any shortness of breath. GI: Denies any nausea or vomiting. MUSCULOSKELETAL: Denies any arthralgias or myalgias. NEUROLOGIC: Denies any focal weakness. The rest of the review of systems are negative except as in HPI. PAST MEDICAL HISTORY: End-stage renal disease, morbid obesity, obstructive sleep apnea, hypertension, hyperlipidemia, chronic diastolic heart failure, and depression. FAMILY AND SOCIAL HISTORY: She does not smoke. Does not drink. Lives with her mother. PHYSICAL EXAMINATION: VITAL SIGNS: Temperature 98.3, pulse of 80, blood pressure 102/70, respiratory rate of 18, and O2 sat 99% on 2 L. HEAD: Atraumatic, normocephalic. NECK: Supple. CHEST: Clear to auscultation bilaterally. No wheezing. No crackles. HEART: S1 and S2 audible. ABDOMEN: Soft and nontender. EXTREMITIES: No pedal edema. NEUROLOGIC: Awake and alert. LABS: White count of 9000, hemoglobin 11.0, hematocrit 36.8, and platelets 357. Chemistry; sodium 135, potassium 4.4, BUN 30, and creatinine 4.33. IMAGING: Chest x-ray which was done in the emergency room is showing no acute abnormalities. First set of cardiac enzymes were negative. ASSESSMENT: Ms. Correa is a 42-year-old female. She presented to the emergency room with chest pain. She has history of end-stage renal disease. She is morbidly obese. She has history of obstructive sleep apnea; however, she is noncompliant with the use. Current problems: 1. Chest pain. 2. Obstructive sleep apnea. 3. Morbid obesity. 4. Chronic diastolic heart failure. 5. End-stage renal disease. PLAN: 1. We will consult Cardiology to rule out any acute coronary event. Cardiac enzymes will be done per protocol. 2. Nephrology consult for routine hemodialysis. The patient has obstructive sleep apnea and I have advised her to follow up with me for doing the sleep study and providing her with CPAP machine. MD JESUS López/MATEUS /[id number]
[2018-07-21 20:00] VITALS: BP 104/69
[2018-07-21 22:06] LABS: CREATINE KINASE MB 2.4 ng/mL (0-5.0)
--- NOTE | 2018-07-21 22:14 | NUR ---
Cardiology Consult Dictation #[id number]
[2018-07-22] VITALS (7 sets, daily range): BP systolic 93–180; BP diastolic 43–78
[2018-07-22] MEDS: FAMOTIDINE 20 MG TAB PO SCH ×2 (02:46→16:33)
--- NOTE | 2018-07-22 04:46 | Consultation ---
DATE OF CONSULTATION: 07/21/2018 Cardiology Consultation. REASON FOR CONSULTATION: Chest pain. HISTORY OF PRESENT ILLNESS: This is a 42-year-old woman with history of hypertension, hyperlipidemia, chronic diastolic heart failure, end-stage renal disease on hemodialysis, morbid obesity, and obstructive sleep apnea, who presents with complaints of chest pain. The patient reports she was in dialysis when she began experiencing chest pain. She described the pain as sharp and tight, 101/10 in severity, associated with shortness of breath. There was no radiation, nausea, or diaphoresis. The pain lasted approximately 1 hour. She presented to the ER for further evaluation. REVIEW OF SYSTEMS: Negative as per HPI. PAST MEDICAL HISTORY: 1. Hypertension. 2. Hyperlipidemia. 3. End-stage renal disease, on hemodialysis. 4. Chronic diastolic heart failure. 5. Morbid obesity. 6. Obstructive sleep apnea. PAST SURGICAL HISTORY: 1. Cholecystectomy. 2. AV fistula creation. ALLERGIES: PLEASE SEE EMR. MEDICATIONS: Please see medication list. SOCIAL HISTORY: Prior tobacco. No alcohol or illicit drugs. FAMILY HISTORY: Pertinent for father with myocardial infarction. PHYSICAL EXAMINATION: VITAL SIGNS: Temperature 98.3 degrees, pulse 80, respiratory rate 20, blood pressure 93/61, and oxygen saturation 99% on 2 L nasal cannula. GENERAL: Morbidly obese woman, and well-developed and well-nourished woman, no acute distress. HEENT: Normocephalic, atraumatic. Pupils equal. No scleral icterus. NECK: Supple. No thyroid or cervical lymphadenopathy. No carotid bruits. LUNGS: Clear to auscultation bilaterally. No wheeze or crackles. CARDIOVASCULAR: Normal rate, regular rhythm. No murmur. Normal S1, S2. ABDOMEN: Soft, nontender. EXTREMITIES: No edema. NEUROLOGIC: Nonfocal exam. LABORATORY DATA: WBC 9.39, hemoglobin 11, hematocrit 36.8, and platelets 357. Sodium 135, potassium 4.4, chloride 94, CO2 of 28, BUN 30, creatinine 4.33. Troponin 0.007. BNP 65.6. EKG, sinus rhythm, right atrial enlargement, left axis deviation, cannot rule out anterior infarct, age undetermined. Chest x-ray, no acute thoracic abnormality. IMPRESSION: 1. Chest pain. 2. Hypertension. 3. Hyperlipidemia. 4. End-stage renal disease, on hemodialysis. 5. Chronic diastolic heart failure. 6. Morbid obesity. 7. Obstructive sleep apnea. RECOMMENDATIONS: Trend cardiac enzymes to rule out myocardial infarction. Echocardiogram has been done. Study was technically difficult, but LV function was preserved. Given risk factors, ischemic evaluation is warranted with nuclear stress test. Likely, the patient will need 2-day protocol due to her body habitus. Further recommendations pending test results. Thank you for this consult. We will continue to follow. Sherri Ann MD ABS/MODL /[id number]
[2018-07-22 05:54] LABS: BASOPHILS % 0.2 % (0.0-1.0); EOSINOPHILS # (AUTO) 0.2 (0.0-0.4); EOSINOPHILS % 1.7 % (0.0-6.0); HEMATOCRIT 36.6 % (34.2-44.1); HEMOGLOBIN 10.5 g/dL (12.0-16.0); LYMPHOCYTES # (AUTO) 1.9 (1.0-3.2); LYMPHOCYTES % 18.7 % (18.0-39.1); MEAN CORPUSCULAR HEMOGLOBIN 31.6 pg (28-32); MEAN CORPUSCULAR HGB CONC 28.7 g/dL (31-35); MEAN CORPUSCULAR VOLUME 110.2 fL (81-99); MONOCYTES # (AUTO) 0.8 (0.2-0.8); MONOCYTES % 8.2 % (4.4-11.3); NEUTROPHILS # (AUTO) 7.1 (2.1-6.9); NEUTROPHILS % 70.6 % (38.7-80.0); PLATELET COUNT 325 x10e3/uL (140-360); RED BLOOD COUNT 3.32 x10e6/uL (3.6-5.1)
[2018-07-22 06:57] LABS: CREATINE KINASE MB 2.6 ng/mL (0-5.0)
--- NOTE | 2018-07-22 07:05 | NUR ---
report given to day nurse. patient is resting comfortably in bed. bed is in lowest position.
[2018-07-22 07:28] LABS: CALCIUM 7.9 mg/dL (8.4-10.2)
[2018-07-22 07:43] LABS: ANION GAP 19.6 mmol/L (8-16)
[2018-07-22 07:52] LABS: CREATININE, SERUM 6.61 mg/dL (0.57-1.11); POTASSIUM 5.6 mmol/L (3.5-5.1)
--- NOTE | 2018-07-22 08:32 | NUR ---
CALLED DR. CLINE, [facility], SPOKE TO HATTY REGARDING NEEDING TO SPEAK TO PHYSICIAN REGARDING PATIENT HAVING HIGH POTASSIUM OF 5.6 MMOL/L.
[2018-07-22] MEDS ORDERED: ASPIRIN 81 MG ENTERIC COATED PO SCH (09:00)
[2018-07-22] MEDS ORDERED: ACETAMINOPHEN/CODEINE 300MG - 30MG TAB PO PRN (09:30)
[2018-07-22] MEDS: ASPIRIN 325 MG TAB EC PO SCH (09:48)
[2018-07-22] MEDS ORDERED: SOD POLYSTYRENE SULFONATE SUSP 15 GM/60 ML BTL PO ONE (10:00)
[2018-07-22] MEDS: ISOSORBIDE MONONITRATE 30 MG TAB CR PO SCH (10:00)
[2018-07-22] MEDS ORDERED: SODIUM CHLORIDE 0.9% 1000ML 2,000 ML ONE (10:57)
[2018-07-22] MEDS ORDERED: ALBUMIN 25% 12.5GM 0.25 GM/ML BTL IV PRN (11:30)
[2018-07-22] MEDS ORDERED: SODIUM CHLORIDE 0.9% 250ML 500 ML IV PRN (11:30)
--- NOTE | 2018-07-22 12:03 | Progress Note ---
DATE: SUBJECTIVE: The patient is complaining of headache. Did not sleep well last night. Denies any chest pain. REVIEW OF SYSTEMS: Denies any nausea or vomiting. Plan to have a stress test. OBJECTIVE: VITAL SIGNS: Temperature 98.8, pulse of 94, blood pressure 180/70, respiratory rate of 18, and O2 saturation 96%. HEENT: Head atraumatic, normocephalic. CHEST: Clear to auscultation bilaterally. HEART: S1 and S2 audible. ABDOMEN: Soft. EXTREMITIES: No pedal edema. NEUROLOGIC: Awake and alert. LABS: Sodium 136, potassium 5.6, BUN 49, creatinine 6.61. White count 10.02, hemoglobin 10.5, and platelets 325. ASSESSMENT/PLAN: Ms. Correa is a 42-year-old female, who presented to the emergency room with chest pain. Current problems: 1. Chest pain. Cardiology has evaluated the patient . The patient will possibly get a stress test today. 2. Chronic diastolic heart failure, currently stable. 3. End-stage renal disease. The patient has hyperkalemia. Nephrology is following the patient. 4. Morbid obesity. 5. Obstructive sleep apnea. We will order the CPAP machine to be used at night during hours of sleep. MD JESUS López/MATEUS /[id number]
[2018-07-22] MEDS ORDERED: SODIUM CHLORIDE 0.9% 1000ML 1,000 ML ONE (13:08)
[2018-07-22 13:51] LABS: CREATINE KINASE MB 2.9 ng/mL (0-5.0)
--- NOTE | 2018-07-22 13:54 | Consultation ---
DATE OF CONSULTATION: 07/22/2018 HISTORY OF PRESENT ILLNESS: This is a 42-year-old patient, known to our Nephrology Service with underlying history of end-stage renal disease, history of depression, prior abnormal liver function tests, history of cholecystectomy, history of obstructive sleep apnea, pulmonary hypertension, prior pneumonia, and end-stage renal disease, who was admitted with apparent chest pain. Cardiology is consulted. Currently sitting up on oxygen. Admits to shortness of breath. No dyspnea noted. Also complains of orthopnea. Denies nausea, vomiting, headache, or chest pains. ALLERGIES: DENIES ANY DRUG ALLERGIES. CURRENT MEDICATIONS: Tylenol p.r.n., ondansetron p.r.n., famotidine 20 mg q.12, morphine p.r.n., isosorbide 30 mg in the morning, nitroglycerin p.r.n., aspirin 325 daily, bupropion 150 mg daily, salmeterol inhaler, and ferrous sulfate. LABS: Sodium 136, potassium 5.6, chloride 97, bicarbonate 25, and creatinine 6.6. Hemoglobin 10.5, white count 10. LFTs within normal range. SOCIAL HISTORY: Does not smoke or drink. FAMILY HISTORY: Significant for hypertension. PHYSICAL EXAMINATION: GENERAL: Awake, alert, sitting up in no apparent distress. VITAL SIGNS: Blood pressure of 110/56, pulse rate 77, and afebrile. HEAD AND NECK: JVD could not be appreciated. Head and neck exam relatively oral mucosa moist. LUNGS: Bibasilar rales. HEART: S1 and S2 audible. No rubs or gallop. ABDOMEN: Soft, nontender. No apparent visceromegaly. LOWER EXTREMITIES: Trace edema. IMPRESSION: Increased BMI, congestive heart failure, hypertension, hyperkalemia, end-stage renal disease, anemia, underlying major depression, and multiple comorbidities. PLAN: Plan an urgent hemodialysis, fluid restriction, salt restriction, renal diet, blood pressure control. Please see orders. Chest pain workup per primary care physician. MD BERKLEY Grimes/MATEUS /[id number]
--- NOTE | 2018-07-22 16:04 | NUR ---
SOCIAL WORK INITIAL ASSESSMENT Photographer Finish to bedside to discuss plan of care with patient/family. CM/SW role and care transitions discussed. Anticipated discharge plan discussed along with duration of care. CM/SW discussed patients right to make decisions in care. CM/SW work hours given. Patient lives: IN HOUSE WITH HER MOTHER Admit/Transfer: VIA ED POA/Emergency contact: MOTHER Current/Previous Home Health: HAS A PROVIDER 7 DAYS A WEEK FOR 5 HOURS A DAY PCP/Follow-up Care: LAKISHA Current/Previous DME: [employer] Other Services: [employer] T, TH AND SAT MORNING Employment Status: NA Areas of Concerns: NA Referral Needs: NA Education Needs: NA IMM/CHRISTENSEN given and signed (if applicable): CHRISTENSEN Goal for discharge:RETURN HOME CM/SW left business card at the bedside with contact information. Name and number was also written on the patients whiteboard. Patient verbalized understanding of discussion. CM will follow-up with ongoing discharge and transition of care needs.
--- NOTE | 2018-07-22 16:25 | Progress Note ---
DATE: 07/22/2018 Cardiology Progress Note SUBJECTIVE: The patient denies chest pain or shortness of breath. She was seen, receiving hemodialysis. Nuclear stress test is pending after dialysis completion. OBJECTIVE: VITAL SIGNS: Temperature 98.4 degrees, pulse 63, respiratory rate 21, blood pressure 122/56, oxygen 94% on 2 L nasal cannula. GENERAL: Obese woman, no acute distress. LUNGS: Clear to auscultation bilaterally. No wheezes or crackles. CARDIOVASCULAR: Normal rate, regular rhythm. No murmur. Normal S1, S2. ABDOMEN: Soft, nontender. EXTREMITIES: No edema. CARDIAC MEDICATIONS: Aspirin 325 mg p.o. daily, isosorbide mononitrate 30 mg p.o. daily. LABORATORY DATA: WBC 10.02, hemoglobin 10.5, hematocrit 36.6, platelets 325. Sodium 136, potassium 5.6, chloride 97, CO2 of 25, BUN 49, creatinine 6.61. Troponin 0.007. Triglycerides 139, cholesterol 171, LDL 86, HDL 57. TELEMETRY: Normal sinus rhythm. IMPRESSION: 1. Chest pain. 2. Hypertension. 3. Hyperlipidemia. 4. End-stage renal disease, on hemodialysis. 5. Chronic diastolic heart failure. 6. Morbid obesity. 7. Obstructive sleep apnea. RECOMMENDATIONS: No evidence of myocardial infarction on serial cardiac biomarkers. Given risk factors, ischemic evaluation is warranted with nuclear stress test. The patient will need two-day protocol due to her body habitus. Further recommendations pending test results. Continue current cardiac medications. Monitor patient on telemetry. Thank you for this consult. We will continue to follow. Sherri Ann MD ABS/MODL /[id number] MTDGala
[2018-07-22] MEDS: BUPROPION HCL 150 MG TABCR PO SCH (16:33)
[2018-07-22] MEDS: FERROUS SULFATE 325 MG TAB PO SCH (16:34)
[2018-07-22] MEDS: SALMETEROL/FLUTICASONE 500/50 INH SCH (19:00)
--- NOTE | 2018-07-22 19:00 | NUR ---
received report from day nurse. patient is resting comfortably in bed.
[2018-07-23] VITALS (10 sets, daily range): BP systolic 87–121; BP diastolic 47–79
[2018-07-23] MEDS: FAMOTIDINE 20 MG TAB PO SCH ×2 (02:35→17:13)
--- NOTE | 2018-07-23 07:02 | NUR ---
report given to day nurse. patient is resting comfortably in bed.
[2018-07-23] MEDS: SALMETEROL/FLUTICASONE 500/50 INH SCH ×2 (07:37→19:30)
[2018-07-23] MEDS: ISOSORBIDE MONONITRATE 30 MG TAB CR PO SCH (09:00)
[2018-07-23] MEDS ORDERED: REGADENOSON 0.4 MG/5 ML SYR IV ONE (09:10)
--- NOTE | 2018-07-23 12:40 | Progress Note ---
DATE: 07/23/2018 Cardiology Progress Note SUBJECTIVE: The patient denies chest pain or shortness of breath. She was seen for nuclear stress test. OBJECTIVE: VITAL SIGNS: Temperature 97.6 degrees, pulse 88, respiratory rate 16, blood pressure 108/47, oxygen saturation 96% on 2 L nasal cannula. GENERAL: Morbidly obese woman, no acute distress. Awake and alert. LUNGS: Clear to auscultation bilaterally. No wheezes or crackles. CARDIOVASCULAR: Normal rate, regular rhythm. No murmur. Normal S1, S2. ABDOMEN: Soft, nontender. EXTREMITIES: No edema. CARDIAC MEDICATIONS: Aspirin 325 mg p.o. daily, isosorbide mononitrate 30 mg p.o. daily. LABORATORY DATA: None today. TELEMETRY: Normal sinus rhythm. IMPRESSION: 1. Chest pain. 2. Hypertension. 3. Hyperlipidemia. 4. End-stage renal disease, on hemodialysis. 5. Chronic diastolic heart failure. 6. Morbid obesity. 7. Obstructive sleep apnea. RECOMMENDATIONS: No evidence of myocardial infarction on serial cardiac biomarkers. Given risk factors, ischemic evaluation is warranted with nuclear stress test. Two day protocol was performed due to patient's body habitus. Further recommendations pending test results. Continue current cardiac medications. Monitor patient on telemetry. The patient is noted to have a drop in her oxygen saturation with sleep management per primary. Thank you for this consult. We will continue to follow. Sherri Ann MD ABS/MODL /[id number]
[2018-07-23] MEDS: BUPROPION HCL 150 MG TABCR PO SCH (17:13)
[2018-07-23] MEDS: ASPIRIN 325 MG TAB EC PO SCH (17:13)
[2018-07-23] MEDS: FERROUS SULFATE 325 MG TAB PO SCH (17:13)
--- NOTE | 2018-07-23 18:03 | Diagnostic Imaging Report ---
EXAM: CT Chest WITH contrast- Pulmonary Embolism Protocol INDICATION: Chest pain, query pulmonary embolism. COMPARISON: Chest radiograph 07/21/2018. TECHNIQUE: Chest was scanned utilizing a multidetector helical scanner from the lung apex through the level of the diaphragm after administration of IV contrast. Thin section reconstructions were obtained with special concentration on the pulmonary arteries. Coronal and sagittal reformations were obtained. Pulmonary embolism protocol was performed. IV CONTRAST: 100 cc of Isovue 370 RADIATION DOSE: Total DLP: 639.9 mGy*cm Dose modulation, iterative reconstruction, and/or weight based adjustment of the mA/kV was utilized to reduce the radiation dose to as low as reasonably achievable. COMPLICATIONS: None FINDINGS: LINES/ TUBES: None. PULMONARY ARTERIES: The study is not satisfactory for evaluation of pulmonary embolism due to poor contrast opacification (main pulmonary artery 150 HU). There is no evidence of main pulmonary embolism. No evidence of lobar pulmonary embolism in the bilateral lower lobes, lingula, middle lobe, or left upper lobe. The right upper lobar pulmonary artery is not well opacified. The right upper pulmonary artery branches are diminutive compared to the left. Main pulmonary artery measures 3.7 in diameter. LUNGS AND AIRWAYS: The central airways are patent. Motion artifact somewhat limits evaluation for pulmonary nodule. No evidence of pneumonia or pulmonary edema. Dependent patchy multifocal subsegmental atelectasis. PLEURA: The pleural spaces are clear. HEART AND MEDIASTINUM: The thyroid gland is normal. No mediastinal, hilar or axillary lymphadenopathy. No cardiomegaly. Coronary atherosclerosis (LAD, left circumflex). UPPER ABDOMEN: Limited evaluation of the upper abdomen. Status post cholecystectomy. BONES: No acute osseous abnormality. No suspicious lytic or blastic lesions. SOFT TISSUES: Partially seen varicose veins in the lower anterior chest and upper anterior abdominal wall, although evaluation is limited secondary to the patient's body habitus. IMPRESSION: The study is not satisfactory for evaluation of pulmonary embolism due to poor contrast opacification. There is no evidence of main pulmonary embolism. No evidence of lobar pulmonary embolism in the bilateral lower lobes, lingula, middle lobe, or left upper lobe. The right upper lobar pulmonary artery is not well opacified. The segmental and subsegmental pulmonary arteries are not well opacified. If there is high clinical suspicion for pulmonary embolism, suggest repeat CT PE when clinically able. Enlarged main pulmonary artery, suggestive of pulmonary arterial hypertension. Coronary atherosclerosis, greater than expected for the patient's age. Signed by: Dr. Robin Brown MD on 07/23/2018 5:59 PM
--- NOTE | 2018-07-23 21:20 | NUR ---
At 2109 patient was assisted into the shower by the HASSOCK MAKER and told to pull the call light string once she was done showering. at 2119 patient left shower room without calling the HASSOCK MAKER and attempted to walk to the bed. while the patient was attempting to walk to the bed the patient lost her balance and fell onto the floor. when this real estate underwriter entered the room, patient was observed lying on the floor. head to toe assessment complete. no injuries observed. patient is complaining of pain in the right shoulder. vital signs obtained bp 121/55, hr 93, O2 sat 96%.patient has been helped up off of the floor and helped into the bed. patient has been re-educated on using call light to ask for assistance before trying to walk about the room. notified via telephone. received order for x-ray of right shoulder. Patient's daughter was in the room at the time of the patient's fall and is aware of the situation. Will continue to monitor patient.
--- NOTE | 2018-07-23 23:01 | Diagnostic Imaging Report ---
Shoulder limited Indication: Fall, pain. Technique: Two portable images of the right shoulder obtained. Comparison: None. Findings: No evidence of displaced fracture involving visualized portions of the humerus Glenohumeral joint appears properly aligned. Visualized portions of the clavicle and acromion are intact. No gas or radiopaque foreign bodies noted within soft tissues. IMPRESSION: No evidence of displaced fracture or other gross abnormalities involving the right shoulder. Signed by: Dr. Kallie Stout MD on 07/23/2018 10:57 PM
[2018-07-24] VITALS (48 sets, daily range): BP systolic 73–144; BP diastolic 49–91
[2018-07-24] MEDS: FAMOTIDINE 20 MG TAB PO SCH ×2 (02:57→14:45)
[2018-07-24 06:35] LABS: BASOPHILS % 0.1 % (0.0-1.0); EOSINOPHILS # (AUTO) 0.1 (0.0-0.4); EOSINOPHILS % 0.7 % (0.0-6.0); HEMATOCRIT 35.1 % (34.2-44.1); LYMPHOCYTES # (AUTO) 1.1 (1.0-3.2); LYMPHOCYTES % 7.4 % (18.0-39.1); MEAN CORPUSCULAR HEMOGLOBIN 31.8 pg (28-32); MEAN CORPUSCULAR HGB CONC 28.5 g/dL (31-35); MEAN CORPUSCULAR VOLUME 111.8 fL (81-99); MONOCYTES # (AUTO) 0.9 (0.2-0.8); MONOCYTES % 6.2 % (4.4-11.3); NEUTROPHILS # (AUTO) 12.4 (2.1-6.9); NEUTROPHILS % 84.9 % (38.7-80.0); PLATELET COUNT 286 x10e3/uL (140-360); RED BLOOD COUNT 3.14 x10e6/uL (3.6-5.1); RED CELL DISTRIBUTION WIDTH 15.6 % (11.7-14.4)
--- NOTE | 2018-07-24 06:55 | NUR ---
report given to day nurse. patient is resting comfortably in bed. bed is in lowest position and call dobbins is within reach.
[2018-07-24] MEDS: SALMETEROL/FLUTICASONE 500/50 INH SCH ×2 (07:00→19:00)
[2018-07-24 07:04] LABS: ANION GAP 23.9 mmol/L (8-16); CALCIUM 7.6 mg/dL (8.4-10.2); CREATININE, SERUM 7.8 mg/dL (0.57-1.11)
[2018-07-24 07:29] LABS: POTASSIUM 5.9 mmol/L (3.5-5.1)
[2018-07-24] MEDS: FERROUS SULFATE 325 MG TAB PO SCH ×2 (08:00→17:00)
[2018-07-24] MEDS ORDERED: SODIUM CHLORIDE 0.9% 1000ML 2,000 ML ONE ×2 (08:27→20:40)
[2018-07-24] MEDS: ISOSORBIDE MONONITRATE 30 MG TAB CR PO SCH (08:38)
[2018-07-24] MEDS: BUPROPION HCL 150 MG TABCR PO SCH (09:00)
[2018-07-24] MEDS: ASPIRIN 325 MG TAB EC PO SCH (09:00)
[2018-07-24 10:45] LABS: ABG HCO3 29 mmol/L (23-28); ABG PCO2 112 mmHg (41-51); ABG PH 7.02 (7.31-7.41); ABG PO2 122 mmHg (80-105)
--- NOTE | 2018-07-24 11:30 | NUR ---
bedside report given to ICU, patient alert and oriented at this time.
--- NOTE | 2018-07-24 12:00 | Progress Note ---
DATE: 07/24/2018 Cardiology Progress Note SUBJECTIVE: The patient denies chest pain or shortness of breath. OBJECTIVE: VITAL SIGNS: Temperature 97.1 degrees, pulse 93, respiratory rate 20, blood pressure 92/59, oxygen saturation 99% on CPAP. GENERAL: Morbidly obese woman, no acute distress, awake and alert. LUNGS: Clear to auscultation bilaterally. No wheezes or crackles. CARDIOVASCULAR: Normal rate, regular rhythm. No murmur. Normal S1, S2. ABDOMEN: Soft, nontender. EXTREMITIES: No edema. CARDIAC MEDICATIONS: Isosorbide mononitrate 30 mg p.o. daily, aspirin 325 mg p.o. daily. LABORATORY DATA: WBC 14.61, hemoglobin 10, hematocrit 35.1, platelets 286. Sodium 141, potassium 5.9, chloride 100, CO2 23, BUN 64, creatinine 7.8. TELEMETRY: Normal sinus rhythm. IMPRESSION: 1. Chest pain. 2. Hypertension. 3. Hyperlipidemia. 4. End-stage renal disease, on hemodialysis. 5. Chronic diastolic heart failure. 6. Morbid obesity. 7. Obstructive sleep apnea. RECOMMENDATIONS: No evidence of myocardial infarction on serial cardiac biomarkers. Nuclear stress test suggested a perfusion defect in the anterior wall and CT of the chest demonstrated coronary atherosclerosis of the LAD and circumflex territories. Given these findings, recommend proceeding with cardiac catheterization. This was discussed with the patient, who agree to proceed. Continue current cardiac medications otherwise. Continue patient on telemetry. Thank you for this consult. We will continue to follow. Sherri Ann MD ABS/MODL /[id number]
[2018-07-24] MEDS ORDERED: SUCCINYLCHOLINE 200 MG/10 ML SYR ONE (12:44)
[2018-07-24] MEDS ORDERED: MIDAZOLAM HCL 2 MG/2 ML VIAL ONE ×2 (12:44→13:08)
[2018-07-24] MEDS ORDERED: ETOMIDATE 40 MG/ 20ML VIAL IV ONE (12:44)
--- NOTE | 2018-07-24 13:00 | NUR ---
PT ON BIPAP.SHE DID NOT REESPONSE,RAPID RESPONSE CALLED,ELENA MADDEN AT BEDSIDE INTUBATED PT.
[2018-07-24] MEDS ORDERED: FENTANYL CITRATE/PF 100MCG/2 ML INJ ONE (13:30)
[2018-07-24] MEDS ORDERED: PROPOFOL IV EMULSION 10MG/ML 100 ML ONE (13:39)
[2018-07-24] MEDS ORDERED: MIDAZOLAM HCL 2 MG/2 ML VIAL IV STA (14:13)
[2018-07-24] MEDS ORDERED: FENTANYL CITRATE/PF 100MCG/2 ML INJ IV ONE (14:15)
[2018-07-24] MEDS: FENTANYL CITRATE INJ 2,000 MCG in SODIUM CHLORIDE 0.9% 250ML 210 ML IV PRN ×2 (15:00→18:00)
--- NOTE | 2018-07-24 16:06 | NUR ---
computer information systems instructor called as patient non responsive with bipap. pt was intubated with sedation. IR consult placed for stat cvc placement. difficult due to adipose tissue. pt on fentanyl gtt and restraints initiated as patient moving extremities and agitated.
[2018-07-24] MEDS ORDERED: NOREPINEPHRINE 8 MG/D5W 250 ML 250 ML ONE (16:22)
--- NOTE | 2018-07-24 16:47 | Diagnostic Imaging Report ---
Date and Time: 07/24/2018 Procedure: Right common femoral central venous catheter placement; aborted right external jugular central venous catheter placement class 1 owner operator: Dr. Bagley Pre-operative diagnosis: Poor IV access Post-operative diagnosis: Poor IV access Conscious Sedation: Continuous fentanyl drip per ICU service. The patient's heart rate and pulse oximetry were continuously monitored by the ICU nurse. Blood pressure was monitored at 5 minute intervals. Additional Medications: Lidocaine 1% for local anesthesia Estimated blood loss: Less than 10 cc Specimens: None Implants: 7 Korean 20 cm triple-lumen central venous catheter Complications: No immediate Blood products administered: None Condition at completion: Critical Disposition: Remain in ICU DISCUSSION: Informed consent was obtained from the next of kin and documented in the medical record after discussion of risks and benefits. The patient was placed in the supine position on the hospital bed. Preliminary sonographic evaluation showed a very small right internal jugular vein (approximately one third diameter of the adjacent common carotid artery) and a patent right external jugular vein, evidenced by compressibility. A suitable percutaneous approach to the external jugular vein was identified. The right neck was prepped and draped in the standard sterile fashion. 1% lidocaine was infiltrated into the skin and subcutaneous tissues for local anesthesia. Then under continuous sonographic guidance, a 21-gauge micropuncture needle was used to access the right external jugular vein. A permanent sonographic image was stored in the medical record. A 0.0 1 8-in. wire was advanced centrally to a depth of approximately 10 cm, at which point resistance was met. The needle was exchanged for a micropuncture sheath and the wire upsized to a 0.0 3 5-in. J-wire, which was advanced through the sheath to a depth of approximately 10 cm, at which point resistance was met. Multiple attempts were made to gently advanced the wire while changing the tip orientation, without success. The wire and sheath were removed. The decision was made to proceed with femoral approach central venous catheter placement. The right groin was then prepped and draped in the standard sterile fashion. Preliminary sonographic evaluation confirmed a patent right common femoral vein. 1% lidocaine was infiltrated into the skin and subcutaneous tissues for local anesthesia. Then under continuous sonographic guidance an 18-gauge singlewall needle was advanced into the common femoral vein. A permanent sonographic image was stored in the medical record. A 0.0 3 5-in. J-wire was advanced through the needle. The needle was removed over the wire and the tract was dilated. Then attempts were made to advance the catheter over the wire, unsuccessful due to the catheter and wire buckling in the subcutaneous tissues due to morbid obesity. The catheter was removed over the wire and the dilator was reintroduced over the wire and advanced to full depth. The wire was then exchanged for a 0.0 3 5-in. Amplatz Super Stiff wire which was advanced through the dilator. The dilator was removed over the wire and the catheter was then advanced over the wire to full depth. The wire was removed. Each lumen was tested and showed adequate bidirectional flow. Each lumen of the catheter was flushed with sterile saline. The catheter was secured to the skin with monofilament nylon suture and a sterile dressing was applied. The patient tolerated the procedure without immediate complication. FINDINGS: Patent though markedly diminutive right internal jugular vein. Attempt at placement of a catheter by a right internal jugular approach was deferred in light of small size, body habitus resulting in excessive depth of subcutaneous tissues to arrive at the vein, and proximity to the adjacent common carotid artery. Patent right external jugular vein. Stenosis or anatomic variation at the junction with the subclavian vein or brachiocephalic vein is suspected evidenced by inability to advance the guidewire centrally as above. Patent right common femoral artery. IMPRESSION: Aborted right external jugular central venous catheter placement as above. Technically difficult though ultimately successful placement of a 7 Korean, 20 cm triple-lumen central venous catheter by a right common femoral approach. Due to patient body habitus and venous anatomic considerations, any future central venous catheter placement should be performed under fluoroscopic guidance. Signed by: Dr. Rebel Bagley M.D. on 07/24/2018 4:43 PM
--- NOTE | 2018-07-24 16:49 | Diagnostic Imaging Report ---
Exam: Pelvic radiograph History: Femoral central venous catheter placement Comparison: None. Findings: Right femoral central venous catheter tip projects over the central aspect of the external iliac vein. Pelvic skeletal structures are intact. Partially visualized bowel gas pattern is nonobstructive. Overall evaluation is limited secondary to body habitus. Impression: Right femoral approach central venous catheter tip lies within the central external iliac vein. Signed by: Dr. Rebel Bagley M.D. on 07/24/2018 4:45 PM
--- NOTE | 2018-07-24 16:53 | Diagnostic Imaging Report ---
Examination: Single AP view of the chest. COMPARISON: 07/21/2018, CT chest PE protocol 07/23/2018 INDICATION: Intubation DISCUSSION: Interval placement of an endotracheal tube with the tip in the right mainstem bronchus. Partial left upper and lower lobe collapse. Linear opacity in the right midlung compatible with subsegmental atelectasis. No pneumothorax. No acute osseous abnormalities. IMPRESSION: Endotracheal tube in the right mainstem bronchus. Retraction by 3-4 cm is suggested. Resultant partial left upper and lower lobe collapse. Findings were discussed by telephone with PROCESS CONTROL PROGRAMMER Ms. Vital at 4:50 PM 07/24/2018. Signed by: Dr. Rebel Bagley M.D. on 07/24/2018 4:50 PM
--- NOTE | 2018-07-24 18:05 | Diagnostic Imaging Report ---
Examination: Single AP view of the chest. COMPARISON: 07/24/2018 INDICATION: Endotracheal tube DISCUSSION: See impression IMPRESSION: Endotracheal tube retracted now approximately 3 cm above the tammy in satisfactory position. Otherwise, limited radiograph with underpenetration. Cardiomegaly with mildly improved aeration. Signed by: Dr. Nick Tejada M.D. on 07/24/2018 6:02 PM
[2018-07-24 18:09] LABS: ALBUMIN 2.9 g/dL (3.5-5.0); ALBUMIN/GLOBULIN RATIO 0.6 (0.8-2.0); CALCIUM 7.9 mg/dL (8.4-10.2); CREATININE, SERUM 6.32 mg/dL (0.57-1.11)
[2018-07-24] MEDS: MIDAZOLAM HCL 2 MG/2 ML VIAL IV PRN (18:18)
[2018-07-24] MEDS: VANCOMYCIN 1GM/NS 250 ML 250 ML IV ONE (18:24)
[2018-07-24] MEDS: PIPER-TAZ 3.375 GM 50 ML IV SCH (18:24)
[2018-07-24] MEDS ORDERED: VANCOMYCIN 1GM/NS 250 ML 250 ML ONE (18:25)
[2018-07-24] MEDS ORDERED: SODIUM CHLORIDE 0.9% 250ML 250 ML ONE (18:26)
[2018-07-24] MEDS: NOREPINEPHRINE INJ 4MG/4ML 8 MG in DEXTROSE 5% 250ML 250 ML IV SCH ×2 (18:30→20:45)
[2018-07-25] VITALS (79 sets, daily range): BP systolic 84–121; BP diastolic 46–79
[2018-07-25] MEDS: MIDAZOLAM HCL 2 MG/2 ML VIAL IV PRN ×6 (01:27→23:45)
[2018-07-25] MEDS: VANCOMYCIN 1GM/NS 250 ML 250 ML IV ONE (01:56)
[2018-07-25] MEDS: FAMOTIDINE 20 MG TAB PO SCH (02:45)
[2018-07-25] MEDS ORDERED: ACETAMINOPHEN 325 MG TAB NG PRN (03:15)
--- NOTE | 2018-07-25 04:55 | NUR ---
Paged Dr. Cotto x2 regarding orders for fever. Dr. Cotto answered page at [phone], new orders received. notified of tachycardia 110-115, fever, and yellow/greenberg sputum.
[2018-07-25] MEDS: PIPER-TAZ 3.375 GM 50 ML IV SCH ×3 (04:57→16:43)
--- NOTE | 2018-07-25 05:02 | Diagnostic Imaging Report ---
Abdomen/KUB INDICATION: Tube placement ^OG PLACEMENT ^Y COMPARISON: None. FINDINGS: Portable, supine image obtained at 0411 hours. Medical Devices: Enteric tube terminates in the proximal stomach. Cholecystectomy clips are present Bowel: Unremarkable bowel gas pattern. No dilated bowel loops. Free air: None Calcifications: None Organomegaly: None Bones: No focal osseous lesions. IMPRESSION: Enteric tube terminates in the proximal stomach. Unremarkable bowel gas pattern. Signed by: Dr. Kallie Stout MD on 07/25/2018 4:59 AM
--- NOTE | 2018-07-25 05:12 | Diagnostic Imaging Report ---
EXAMINATION: CHEST SINGLE (PORTABLE) COMPARISON: Chest x-ray 07/24/2018, abdomen x-ray 0411 hours INDICATION: ^COPD, INTUBATION DISCUSSION: Frontal view of the chest obtained at 0435 hours. The image is underpenetrated. HEART AND MEDIASTINUM: Stable cardiomegaly LINES: Endotracheal tube terminates at the clavicular heads. Enteric tube is poorly visualized. LUNGS: Low lung volumes. Patchy airspace opacities are stable. PLEURA: No large effusions. No pneumothorax. BONES AND SOFT TISSUES: No focal osseous lesion. Soft tissues are unremarkable. IMPRESSION: Endotracheal tube terminates at the clavicular heads. No change in airspace opacities. Stable cardiomegaly. Signed by: Dr. Kallie Stout MD on 07/25/2018 5:08 AM
[2018-07-25 05:33] LABS: BASOPHILS % 0.2 % (0.0-1.0); EOSINOPHILS # (AUTO) 0.1 (0.0-0.4); EOSINOPHILS % 0.7 % (0.0-6.0); HEMATOCRIT 37.5 % (34.2-44.1); HEMOGLOBIN 10.8 g/dL (12.0-16.0); LYMPHOCYTES # (AUTO) 0.8 (1.0-3.2); LYMPHOCYTES % 5.1 % (18.0-39.1); MEAN CORPUSCULAR HEMOGLOBIN 31.8 pg (28-32); MEAN CORPUSCULAR HGB CONC 28.8 g/dL (31-35); MEAN CORPUSCULAR VOLUME 110.3 fL (81-99); MONOCYTES % 6.8 % (4.4-11.3); NEUTROPHILS # (AUTO) 12.7 (2.1-6.9); NEUTROPHILS % 86.7 % (38.7-80.0); PLATELET COUNT 311 x10e3/uL (140-360); RED CELL DISTRIBUTION WIDTH 15.8 % (11.7-14.4)
[2018-07-25 05:51] LABS: ANION GAP 19.6 mmol/L (8-16); CALCIUM 8.6 mg/dL (8.4-10.2); CREATININE, SERUM 5.5 mg/dL (0.57-1.11); POTASSIUM 4.6 mmol/L (3.5-5.1)
[2018-07-25] MEDS: NOREPINEPHRINE INJ 4MG/4ML 8 MG in DEXTROSE 5% 250ML 250 ML IV SCH ×5 (07:00→21:30)
[2018-07-25] MEDS: FERROUS SULFATE 325 MG TAB PO SCH ×2 (08:00→16:43)
[2018-07-25] MEDS: ISOSORBIDE MONONITRATE 30 MG TAB CR PO SCH (09:00)
[2018-07-25 09:44] LABS: ABG HCO3 27 mmol/L (23-28); ABG PCO2 59 mmHg (41-51); ABG PH 7.27 (7.31-7.41); ABG PO2 67 mmHg (80-105)
[2018-07-25] MEDS ORDERED: SODIUM CHLORIDE 0.9% 1000ML 1,000 ML ONE (09:53)
--- NOTE | 2018-07-25 12:09 | NUR ---
Nutrition Intervention Note RD Recommendation(s) for Physician: Initiate Nepro at 50 ml/hr via OGT when medically feasible Plan of Care: RD following, monitoring for tolerance and adequacy Nutrition reason for involvement: Orally intubated RD Assessment Initial encounter with patient. Pt with a change of status on 07/24. She became unresponsive , a rapid response was called and she is now orally intubated and sedated. Orogastric tube in place on suction at time of visit. Unable to obtain a nutrition Hx from Pt. Pt is well known at [facility]. Overweight/obesity, Principal Problems/Diagnoses: Chest Pain PMH: ESRD, diastolic heart failure, HTN, Hyperlipidemia, IVF: Norepinephrine and fentanyl drips GI: soft non tender Skin: intact Labs: (07/25/2018) lab results reviewed Meds: (07/25/2018) MAR reviewed Malnutrition Evaluation (07/25/2018) The patient does not meet criteria for a specified degree of malnutrition at this time. Will re-evaluate at follow-up as appropriate. Diet Education Needs Assessment: Diet education not indicated. Ht:61 Wt:340.31lbs BMI:64.3kg/m2 IBW:105lbs Estimated Nutritional Needs: 1856 - 2165 kcals at 12-14 kcals/kg/Bw 95g of protein at 2g/kg/IBW Nutrition Prescription (Diet Order):NPO Food Allergies: No known food allergies Diet Adequacy: Not meeting calorie needs, Not meeting protein needs Nutrition Care Level: High Nutrition Diagnosis: Swallowing difficulty related to acute illness as evidenced by respiratory failure/oral intubation Goal:Patient will meet 75-100% of estimated needs by follow up Progress: Not Progressing Interventions: Commercial food, Composition, Rate, Route, IVF, Prescription medications Monitoring/Evaluation: Total energy intake, Total protein intake, Formula/Solution, IVF, Prescription medication, Weight change Abebe Cruz RD, LD, CNSC
--- NOTE | 2018-07-25 13:55 | Progress Note ---
DATE: 07/25/2018 Cardiology Progress Note SUBJECTIVE: The patient was intubated yesterday due to hypercapnic respiratory failure. She remains intubated and sedated on Levophed 10 mcg/minute. She is currently receiving dialysis. OBJECTIVE: VITAL SIGNS: Temperature 98.3 degrees, pulse 99, respiratory rate 19, blood pressure 102/69, and oxygen saturation 97% on mechanical ventilation. GENERAL: Morbidly obese woman, intubated and sedated. LUNGS: Clear to auscultation bilaterally. No wheezes or crackles. CARDIOVASCULAR: Normal rate. Regular rhythm. No murmur. Normal S1, S2. ABDOMEN: Soft, nontender. EXTREMITIES: No edema. CARDIAC MEDICATIONS: Levophed 10 mcg/minute, isosorbide mononitrate 30 mg p.o. daily, and aspirin 325 mg p.o. daily. LABS: WBC 14.62, hemoglobin 10.8, hematocrit 37.5, platelets 311. Sodium 137, potassium 4.6, chloride 98, CO2 of 24, BUN 32, creatinine 5.5. IMAGING: Chest x-ray; endotracheal tube terminates at the clavicle, has no change in airspace opacities, stable cardiomegaly. IMPRESSION: 1. Acute hypercapnic respiratory failure, now intubated. 2. Chest pain. 3. Hypertension. 4. Hyperlipidemia. 5. End-stage renal disease, on hemodialysis. 6. Chronic diastolic heart failure. 7. Morbid obesity. 8. Obstructive sleep apnea. RECOMMENDATIONS: No evidence of myocardial infarction on serial cardiac biomarkers. On admission, stress test suggested anterior ischemia and CT of the chest demonstrated coronary atherosclerosis in the LAD and circumflex territories. Planned cardiac catheterization is on hold as the patient was intubated for hypercapnic respiratory failure prior to procedure; reschedule once the patient is clinically improved. Volume management per Nephrology given end-stage renal disease, on hemodialysis as the patient is anuric. Continue current cardiac medications otherwise. Hold isosorbide mononitrate while on Levophed. Continue supportive care. Antibiotics per primary service. Monitor the patient closely on telemetry. Thank you for this consult. We will continue to follow. Sherri Ann MD ABS/MODL /[id number]
[2018-07-25] MEDS: FENTANYL CITRATE INJ 2,000 MCG in SODIUM CHLORIDE 0.9% 250ML 210 ML IV PRN (15:45)
[2018-07-25] MEDS: ASPIRIN 325 MG TAB EC PO SCH (16:43)
[2018-07-25] MEDS: HEPARIN SOD (PORCINE) 5,000 UNIT/ML VIAL SC SCH ×2 (16:43→23:53)
[2018-07-25] MEDS: ACETAMINOPHEN 325 MG/10 ML UDC NG PRN (20:45)
[2018-07-26] VITALS (94 sets, daily range): BP systolic 79–115; BP diastolic 43–73
[2018-07-26] MEDS: FENTANYL CITRATE INJ 2,000 MCG in SODIUM CHLORIDE 0.9% 250ML 210 ML IV PRN ×7 (01:40→20:55)
[2018-07-26] MEDS: PIPER-TAZ 3.375 GM 50 ML IV SCH ×3 (01:41→18:00)
[2018-07-26] MEDS: MIDAZOLAM HCL 2 MG/2 ML VIAL IV PRN ×6 (04:32→21:16)
[2018-07-26 04:45] LABS: BASOPHILS % 0.3 % (0.0-1.0); EOSINOPHILS # (AUTO) 0.1 (0.0-0.4); EOSINOPHILS % 0.9 % (0.0-6.0); HEMOGLOBIN 10.3 g/dL (12.0-16.0); LYMPHOCYTES # (AUTO) 1.2 (1.0-3.2); MEAN CORPUSCULAR HEMOGLOBIN 31.4 pg (28-32); MEAN CORPUSCULAR HGB CONC 28.6 g/dL (31-35); MEAN CORPUSCULAR VOLUME 109.8 fL (81-99); MONOCYTES # (AUTO) 1.3 (0.2-0.8); MONOCYTES % 9.8 % (4.4-11.3); NEUTROPHILS # (AUTO) 10.3 (2.1-6.9); NEUTROPHILS % 79.6 % (38.7-80.0); PLATELET COUNT 287 x10e3/uL (140-360); RED BLOOD COUNT 3.28 x10e6/uL (3.6-5.1); RED CELL DISTRIBUTION WIDTH 15.8 % (11.7-14.4)
[2018-07-26 05:11] LABS: ANION GAP 20.7 mmol/L (8-16); CALCIUM 9.3 mg/dL (8.4-10.2); CREATININE, SERUM 5.73 mg/dL (0.57-1.11); POTASSIUM 4.7 mmol/L (3.5-5.1)
[2018-07-26] MEDS: HEPARIN SOD (PORCINE) 5,000 UNIT/ML VIAL SC SCH ×3 (06:26→21:09)
--- NOTE | 2018-07-26 06:44 | Diagnostic Imaging Report ---
EXAMINATION: CHEST SINGLE (PORTABLE) COMPARISON: Chest x-ray 07/25/2018 INDICATION: Chest pain ^INTUBATION-FOLLOW UP DISCUSSION: Frontal view of the chest obtained at 0614 hours. HEART AND MEDIASTINUM: Stable cardiomegaly. Hilar markings are more defined. LINES: Endotracheal tube terminates at the clavicular heads. Enteric tube extends past the diaphragm. LUNGS: Lung volumes are low but better inflated. Retrocardiac airspace disease is redemonstrated. Right infrahilar airspace opacity is similar.. No pneumonia or pulmonary edema. PLEURA: No large effusions. No pneumothorax. BONES AND SOFT TISSUES: No focal osseous lesion. The soft tissues are normal. IMPRESSION: Support devices as described above. Low lung volumes and bibasilar airspace opacities, either atelectasis or infiltrate. Signed by: Dr. Kallie Stout MD on 07/26/2018 6:40 AM
[2018-07-26] MEDS: ISOSORBIDE MONONITRATE 30 MG TAB CR PO SCH (08:24)
[2018-07-26] MEDS ORDERED: NOREPINEPHRINE 8 MG/D5W 250 ML 250 ML ONE (08:47)
[2018-07-26] MEDS: NOREPINEPHRINE INJ 4MG/4ML 8 MG in DEXTROSE 5% 250ML 250 ML IV SCH (09:00)
[2018-07-26] MEDS: FERROUS SULFATE 325 MG TAB PO SCH ×2 (09:00→16:35)
[2018-07-26] MEDS: ASPIRIN 325 MG TAB EC PO SCH (09:28)
[2018-07-26] MEDS: FAMOTIDINE 20 MG/2 ML VIAL IV SCH (09:28)
[2018-07-26] MEDS: ACETAMINOPHEN 325 MG/10 ML UDC NG PRN ×2 (09:29→12:12)
[2018-07-26 10:13] LABS: ABG HCO3 28 mmol/L (23-28); ABG PCO2 61 mmHg (41-51); ABG PH 7.27 (7.31-7.41); ABG PO2 59 mmHg (80-105)
[2018-07-26] MEDS ORDERED: DEXTROSE 50% SYRINGE 50 ML IV PRN (11:00)
[2018-07-26] MEDS ORDERED: INSULIN LISPRO 100 UNIT/1 ML 3ML VIAL SQ SCH (11:30)
[2018-07-26] MEDS: LORAZEPAM 1 MG TAB NG PRN ×4 (11:30→23:15)
[2018-07-26] MEDS ORDERED: ONDANSETRON HCL INJ 2MG/ML 2ML 2 MG/ML VIAL ONE (11:50)
[2018-07-26] MEDS: VANCOMYCIN 1GM/NS 250 ML 250 ML IV SCH (13:23)
--- NOTE | 2018-07-26 13:50 | Progress Note ---
DATE: 07/26/2018 Cardiology Progress Note SUBJECTIVE: The patient remains intubated and sedated on Levophed 10 mcg/minute. OBJECTIVE: VITAL SIGNS: Temperature 99.1 degrees, pulse 112, respiratory rate 18, blood pressure 106/58, oxygen saturation 93% on mechanical ventilation. GENERAL: Obese woman, in no acute distress, intubated and sedated. LUNGS: Clear to auscultation in anterior lung castro. No wheezes or crackles. CARDIOVASCULAR: Tachycardic, regular rhythm. No murmur. Normal S1, S2. ABDOMEN: Soft, nontender. EXTREMITIES: No edema. CARDIAC MEDICATIONS: Aspirin 325 mg p.o. daily, Levophed 10 mcg/minute. LABORATORY DATA: WBC 12.94, hemoglobin 10.3, hematocrit 36, platelets 287. Sodium 139, potassium 4.7, chloride 98, CO2 of 25, BUN 33, creatinine 5.73. ABG; pH 7.27, pCO2 of 61, pO2 of 59 with oxygen saturation of 85%. IMAGING DATA: Chest x-ray, support devices as described above. Low lung volumes and bibasilar airspace opacities, either atelectasis or infiltrate. TELEMETRY: Sinus tachycardia with PACs and PVCs. IMPRESSION: 1. Acute hypercapnic respiratory failure, now intubated. 2. Chest pain. 3. Hypertension. 4. Hyperlipidemia. 5. End-stage renal disease, on hemodialysis. 6. Chronic diastolic heart failure. 7. Morbid obesity. 8. Obstructive sleep apnea. RECOMMENDATIONS: No evidence of myocardial infarction on serial cardiac biomarkers. Stress test suggested anterior ischemia and CT of the chest demonstrated coronary atherosclerosis in the LAD and circumflex territories. Planned cardiac catheterization is on hold as the patient has been intubated for hypercapnic respiratory failure. We will reschedule once the patient is clinically improved. Volume management per Nephrology given end-stage renal disease. Continue current cardiac medications. Hold isosorbide mononitrate while on Levophed. Replete electrolytes. Continue supportive care. Antibiotics per primary service. Thank you for this consult. We will continue to follow. Sherri Ann MD ABS/MODL /[id number]
[2018-07-26 14:29] LABS: ABG PCO2 60 mmHg (41-51); ABG PH 7.25 (7.31-7.41)
[2018-07-26 14:30] LABS: ABG HCO3 26 mmol/L (23-28); ABG PO2 73 mmHg (80-105)
--- NOTE | 2018-07-26 14:50 | NUR ---
patient restless throughout day. even with fentanyl gtt and administering ativan 1mg po and iv versed frequently, pt waking up from the medication not allowing her lungs to rest. increased hr, secretions, decrease sats and increase temp. will continue to monitor.
[2018-07-26] MEDS: INSULIN LISPRO 100 UNIT/1 ML 3ML VIAL SQ SCH ×2 (18:01→23:49)
--- NOTE | 2018-07-26 18:03 | NUR ---
pericare complete and linens changed. pt is on menstrual cycle currently.
--- NOTE | 2018-07-26 18:17 | NUR ---
ID consult called today and yesterday.
--- NOTE | 2018-07-26 18:55 | NUR ---
nsg report given to night nurse
[2018-07-27] VITALS (44 sets, daily range): BP systolic 77–135; BP diastolic 47–102
[2018-07-27] MEDS: NOREPINEPHRINE INJ 4MG/4ML 8 MG in DEXTROSE 5% 250ML 250 ML IV SCH ×3 (00:20→09:29)
--- NOTE | 2018-07-27 00:37 | Consultation ---
DATE OF CONSULTATION: REASON FOR CONSULTATION: Sepsis. HISTORY OF PRESENT ILLNESS: This patient who is a 42-year-old female, who is a morbidly obese patient with history of end-stage disease on hemodialysis, comes in to the emergency room with chest pain and not feeling well. The patient apparently had chest pain while she is on hemodialysis, came here. She is currently intubated. She is on vasopressors. It was also noted that she has some subcutaneous ecchymosis on her left upper extremity. The patient has history of obstructive sleep apnea, morbidly obese patient, congestive heart failure, end-stage renal disease on hemodialysis, comes in with chest pain. She was seen by Cardiology. She does have a history of chronic diastolic congestive heart failure, sleep apnea, hyperlipidemia, hypertension, comes in with chest pain. She is seen by Cardiology, seen by Nephrology. I was asked to see her today. Apparently, cardiac event ruled out. There was no myocardial infarction. The patient does have coronary artery disease by CAT scan. The plan for her to have cardiac catheterization once she is stable. Her sputum culture is showing Staph aureus. Blood cultures are negative. Her white count is 12.94, yesterday was 14.62, hemoglobin 10, and hematocrit 36. Sodium 139, potassium 4.6, creatinine 0.57. The patient is currently on insulin, Zosyn, Ativan, heparin subcu, and vancomycin. Review of systems could not be obtained. The patient is currently in the intensive care unit. Her daughter who is at the bedside does not provide any meaningful information. She said she is not sure how long her mom has been sick. Mother lives by herself. The chart is reviewed. Discussed with her daughter. Discussed with the nursing team. The patient is concerned if she have Staphylococcus pneumonia since she has Staphylococcus aureus in the sputum. It is hard to assess the patient because of her morbidly obese patient, but I was able to review her lab, her chest x-ray, and CAT scan. PAST MEDICAL HISTORY: End-stage renal disease, morbidly obese patient, obstructive sleep apnea, chronic diastolic congestive heart failure, depression, hyperlipidemia, and hypertension. PAST SURGICAL HISTORY: AV fistula on the left upper extremity for dialysis. ALLERGIES: NKA. SOCIAL HISTORY: There is no smoking, drug abuse, or alcohol abuse. FAMILY HISTORY: Hypertension. MEDICATIONS: List reviewed, as mentioned above. She is intubated and sedated. She has been running fevers today 102.1 and 101.3, started on July 25. No fever before that. The patient had a CT of the chest when she first came. There is no evidence of pulmonary embolism. REVIEW OF SYSTEMS: Hypotensive, shocky. PHYSICAL EXAMINATION: GENERAL: She is intubated and sedated. She has a chronic fever now. HEENT: Normocephalic. NECK: No JVD. CHEST: Crackles bilaterally. HEART: S1, S2. No S3, S4, or murmur. ABDOMEN: Soft, obese. EXTREMITIES: No edema. IMPRESSION AND PLAN: Fever while in the hospital. The patient is morbidly obese; hard to assess; possibly Staphylococcus aureus; pneumonia, community acquired, currently on vancomycin and Zosyn, but the fever is new onset, which is of concern. Her physical examination does not really suggest what is the source. She is shocky, which could be from the liver, but also could be from sepsis. I am not so sure if we can do a CT of the abdomen and pelvis because of her weight. We will order one however and see if we can do CT of abdomen and pelvis with oral contrast. Fever, sepsis on admission, obesity, chronic kidney disease on dialysis, anemia of chronic disease. We will check CT of abdomen and pelvis. Continue with vancomycin and Zosyn for now. We will adjust her kidney function. Check CBC, Chem panel, amylase, and lipase. We will follow. MD ANAHI Lezama/MATEUS /[id number]
[2018-07-27] MEDS ORDERED: SODIUM CHLORIDE 0.9% 250ML 250 ML ONE (01:00)
[2018-07-27] MEDS: MIDAZOLAM HCL 2 MG/2 ML VIAL IV PRN ×3 (01:01→11:00)
[2018-07-27] MEDS: PIPER-TAZ 3.375 GM 50 ML IV SCH ×2 (01:30→12:11)
[2018-07-27] MEDS: ACETAMINOPHEN 325 MG/10 ML UDC NG PRN ×2 (03:05→09:25)
[2018-07-27 05:48] LABS: BASOPHILS % 0.3 % (0.0-1.0); EOSINOPHILS # (AUTO) 0.3 (0.0-0.4); EOSINOPHILS % 1.7 % (0.0-6.0); HEMATOCRIT 35.3 % (34.2-44.1); HEMOGLOBIN 9.9 g/dL (12.0-16.0); LYMPHOCYTES # (AUTO) 1.4 (1.0-3.2); LYMPHOCYTES % 9.3 % (18.0-39.1); MEAN CORPUSCULAR HEMOGLOBIN 31.3 pg (28-32); MEAN CORPUSCULAR VOLUME 111.7 fL (81-99); MONOCYTES # (AUTO) 1.4 (0.2-0.8); MONOCYTES % 9.1 % (4.4-11.3); NEUTROPHILS % 79.1 % (38.7-80.0); PLATELET COUNT 301 x10e3/uL (140-360); RED BLOOD COUNT 3.16 x10e6/uL (3.6-5.1); RED CELL DISTRIBUTION WIDTH 15.4 % (11.7-14.4)
[2018-07-27 06:15] LABS: ANION GAP 24.5 mmol/L (8-16); CALCIUM 9.7 mg/dL (8.4-10.2); CREATININE, SERUM 8.25 mg/dL (0.57-1.11); POTASSIUM 5.5 mmol/L (3.5-5.1)
[2018-07-27] MEDS: HEPARIN SOD (PORCINE) 5,000 UNIT/ML VIAL SC SCH ×3 (06:16→22:22)
[2018-07-27] MEDS: INSULIN LISPRO 100 UNIT/1 ML 3ML VIAL SQ SCH ×3 (06:16→18:30)
--- NOTE | 2018-07-27 07:26 | Diagnostic Imaging Report ---
Examination: Single AP view of the chest. COMPARISON: 07/26/2018 INDICATION: Pneumonia DISCUSSION: When accounting for differences in patient positioning, endotracheal tube and enteric tube are unchanged in position. Evaluation of the heart and lungs is markedly limited secondary to patient body habitus. Lung volumes are low with prominence of the perihilar interstitium. Enlargement of the cardiac silhouette is unchanged. No acute osseous abnormality. IMPRESSION: Stable position of support lines and tubes when accounting for differences in patient positioning. Persistent low lung volumes with subsegmental atelectasis in the lung bases. Cardiomegaly with pulmonary venous congestion. Signed by: Dr. Rebel Bagley M.D. on 07/27/2018 7:23 AM
[2018-07-27 07:28] LABS: ANISOCYTOSIS SLIGHT; HYPOCHROMASIA SLIGHT; PLATELET ESTIMATE ADEQUATE; PLATELET MORPHOLOGY COMMENT NORMAL
[2018-07-27 07:30] LABS: POLYCHROMASIA FEW; RBC MORPHOLOGY COMMENT ABNORMAL
[2018-07-27] MEDS ORDERED: DIATRIZOATE MEGL/DIATRIZOA SOD 30 ML BTL PO ONE (08:01)
[2018-07-27] MEDS ORDERED: NOREPINEPHRINE 8 MG/D5W 250 ML 250 ML ONE (08:22)
[2018-07-27 08:29] LABS: MAGNESIUM 2.3 MG/DL (1.3-2.1); PHOSPHORUS 7.8 MG/DL (2.3-4.7)
[2018-07-27] MEDS: ASPIRIN 325 MG TAB EC PO SCH (09:00)
[2018-07-27] MEDS: ISOSORBIDE MONONITRATE 30 MG TAB CR PO SCH (09:00)
[2018-07-27] MEDS: FERROUS SULFATE 325 MG TAB PO SCH ×2 (09:00→16:22)
[2018-07-27] MEDS: FAMOTIDINE 20 MG/2 ML VIAL IV SCH (09:25)
[2018-07-27] MEDS: LORAZEPAM 1 MG TAB NG PRN (09:25)
[2018-07-27] MEDS ORDERED: PIPERACILLIN/TAZO 2.25 GM 50 ML IV SCH (11:00)
[2018-07-27] MEDS: PIPERACILLIN/TAZO 2.25 GM 50 ML IV SCH (11:35)
--- NOTE | 2018-07-27 11:36 | Diagnostic Imaging Report ---
EXAMINATION: CT of the abdomen and pelvis without contrast. TECHNIQUE: Spiral CT images of the abdomen and pelvis were performed from the lung bases to the lesser trochanters. No intravenous contrast was given per referring physician request. Oral Gastrografin was administered. Coronal and sagittal reformatted images were obtained. COMPARISON: None. CLINICAL HISTORY:Sepsis DISCUSSION: ABSENCE OF INTRAVENOUS CONTRAST DECREASES SENSITIVITY FOR DETECTION OF FOCAL LESIONS AND VASCULAR PATHOLOGY. In addition, this examination is markedly limited secondary to patient body habitus. Specifically, extensive patient body surface contact with the scanning gantry results in significant beam hardening artifact. ABDOMEN/PELVIS: LOWER THORAX: Bilateral lower lobe consolidations, left worse than right, with multiple air bronchograms. HEPATOBILIARY:No focal hepatic lesion or intrahepatic biliary dilatation. The gallbladder is absent. SPLEEN: No splenomegaly. PANCREAS: No focal masses or ductal dilatation. ADRENALS: No adrenal nodules. KIDNEYS/URETERS: No hydronephrosis, stones, or solid mass lesions. PELVIC ORGANS/BLADDER: The urinary bladder is poorly distended and poorly evaluated. Uterus is anteflexed and appears normal. No adnexal mass. PERITONEUM/RETROPERITONEUM: No free air or fluid. LYMPH NODES: No pelvic sidewall, retroperitoneal, or mesenteric lymphadenopathy. VESSELS: Right common femoral approach central venous catheter terminates in the external iliac vein. Limited evaluation without intravenous contrast. The abdominal aorta is nonaneurysmal. GI TRACT: Enteric tube terminates within the gastric body. The large bowel and peripheral segments of small bowel are poorly evaluated secondary to beam hardening artifact. No gross distention or wall thickening. Normal appendix. There is no small bowel dilatation to suggest obstruction. BONES AND SOFT TISSUES: No osseous destructive lesions. Healed bilateral rib fracture deformities. Degenerative disc changes of the lower lumbar spine. No focal soft tissue abnormalities evaluation is limited as previously discussed. IMPRESSION: Markedly limited examination as discussed above. Bilateral lower lobe pneumonia left worse than right. No acute intra-abdominal or pelvic CT abnormalities. Signed by: Dr. Rebel Bagley M.D. on 07/27/2018 11:33 AM
--- NOTE | 2018-07-27 13:34 | Progress Note ---
DATE: 07/27/2018 Cardiology Progress Note SUBJECTIVE: The patient is on pressors. Blood pressure is borderline sinus tachycardia. Concern for abdominal infection, undergoing CT scan of the abdomen this morning. OBJECTIVE: VITAL SIGNS: Temperature 103.3, heart rate 125, respiratory rate 18 on mechanical ventilation. Blood pressure 106/68, saturating 97%. GENERAL: Intubated and sedated. No acute distress. CARDIOVASCULAR: Tachycardic, regular rate and rhythm. No murmurs, rubs, or gallops. LUNGS: Mechanical breath sounds, coarse bilateral bases. ABDOMEN: Obese, soft, nondistended. NEURO AND PSYCH: The patient is intubated and sedated. INPATIENT MEDICATIONS: Reviewed. LABORATORY DATA: Reviewed. Shows worsening white count 15.1 today, potassium of 5.5. Sputum culture shows Staph aureus. Blood cultures negative today. IMAGING DATA: Reviewed. ASSESSMENT AND PLAN: 1. Acute hypercapnic respiratory failure, on mechanical ventilatory support. 2. Chest pain. 3. Hypertension. 4. Hyperlipidemia. 5. End-stage renal disease on dialysis. 6. Chronic diastolic heart failure. 7. Morbid obesity. 8. Obstructive sleep apnea. 9. Septic shock. RECOMMENDATIONS: The patient is in septic shock. Currently requiring pressors with borderline blood pressures, worsening white count and high-grade fevers on antibiotics. She will undergo a CT scan of the abdomen to look for any source. Blood cultures remain negative. Suspicion for endocarditis is very low. Had a stress test earlier in the admission that was mildly abnormal. We will need cardiac catheterization for this to evaluate for any coronary artery disease. Once all the acute issues resolve hold all blood pressure medications while on vasopressors. Thank you for this consult. We will continue to follow. MD MONIKA Merino/MATEUS /[id number]
--- NOTE | 2018-07-27 15:34 | Diagnostic Imaging Report ---
EXAM: US ABDOMEN COMPLETE DATE: 07/27/2018 12:00 AM INDICATION: Fever of unknown origin COMPARISON: None TECHNIQUE: Transverse and longitudinal quintanilla scale and color doppler sonographic images of the upper abdomen were obtained. FINDINGS: LIVER 22.5 cm in the right midclavicular line. Normal echogenicity, normal contour, no masses. SPLEEN 10.4 cm in maximum diameter. Normal echogenicity, no masses. GALLBLADDER Surgically removed. BILE DUCTS Prominent extrahepatic biliary system. No intrahepatic dilatation. Common bile duct measures 1.1 cm, likely related to reservoir effect status post cholecystectomy. PANCREAS: Not visualized RIGHT KIDNEY: 9.9 cm Echogenicity: Normal Collecting System: No hydronephrosis Stones: None Cyst/Mass: None LEFT KIDNEY: Poorly visualized. VESSELS: Aorta: Nonaneurysmal Inferior Vena Cava: Patent Main Portal Vein: 1 cm, normal size with hepatopetal flow. FREE FLUID: None IMPRESSION: Limited evaluation due to patient body habitus. Hepatomegaly. Status post cholecystectomy with prominent common bile duct likely reservoir effect. Signed by: Dr. Rebel Bagley M.D. on 07/27/2018 3:30 PM
--- NOTE | 2018-07-27 19:00 | NUR ---
Report received. Assumed care. Assessment done. See interventions. Orally intubated with 7.5 FR ETT secured @ 22cm at the lip. Vent settings: TV 450, FIO2 55%, PRVC 18 and PEEP 5cm. OGT secured to ETT. IV Levophed @ 16mcg/min or 30ml/hr an Fentanyl @ 300mcg/hr or 12ml/hr.
--- NOTE | 2018-07-27 19:30 | NUR ---
Transferred onto Bariatric rotating bed.
[2018-07-27] MEDS: FENTANYL CITRATE INJ 2,000 MCG in SODIUM CHLORIDE 0.9% 250ML 210 ML IV PRN (19:58)
--- NOTE | 2018-07-27 20:30 | NUR ---
Dialysis nurse at bedside. Titrated Levophed prior to dialysis for BP support.
[2018-07-28] VITALS (27 sets, daily range): BP systolic 57–148; BP diastolic 32–121
[2018-07-28] MEDS: NOREPINEPHRINE INJ 4MG/4ML 8 MG in DEXTROSE 5% 250ML 250 ML IV SCH ×3 (00:02→22:25)
[2018-07-28] MEDS: LORAZEPAM 1 MG TAB NG PRN (01:00)
[2018-07-28] MEDS: PIPERACILLIN/TAZO 2.25 GM 50 ML IV SCH ×3 (01:02→22:24)
--- NOTE | 2018-07-28 02:00 | NUR ---
Nepro tube feeding started @ 40ml/hr.
--- NOTE | 2018-07-28 04:29 | NUR ---
Complete bed bath given. Bed linens changed. Central line drsg changed.
[2018-07-28] MEDS ORDERED: NOREPINEPHRINE 8 MG/D5W 250 ML 250 ML ONE (05:08)
[2018-07-28 05:20] LABS: BASOPHILS % 0.2 % (0.0-1.0); EOSINOPHILS # (AUTO) 0.1 (0.0-0.4); HEMOGLOBIN 9.7 g/dL (12.0-16.0); LYMPHOCYTES # (AUTO) 1.3 (1.0-3.2); LYMPHOCYTES % 8.8 % (18.0-39.1); MEAN CORPUSCULAR HEMOGLOBIN 31.7 pg (28-32); MEAN CORPUSCULAR HGB CONC 28.5 g/dL (31-35); MEAN CORPUSCULAR VOLUME 111.1 fL (81-99); MONOCYTES # (AUTO) 1.3 (0.2-0.8); MONOCYTES % 8.7 % (4.4-11.3); NEUTROPHILS # (AUTO) 11.6 (2.1-6.9); NEUTROPHILS % 80.9 % (38.7-80.0); PLATELET COUNT 294 x10e3/uL (140-360); RED BLOOD COUNT 3.06 x10e6/uL (3.6-5.1); RED CELL DISTRIBUTION WIDTH 15.3 % (11.7-14.4)
[2018-07-28] MEDS: ACETAMINOPHEN 325 MG/10 ML UDC NG PRN ×3 (05:27→22:20)
[2018-07-28] MEDS: INSULIN LISPRO 100 UNIT/1 ML 3ML VIAL SQ SCH ×5 (05:28→23:56)
[2018-07-28 06:11] LABS: ALBUMIN 2.3 g/dL (3.5-5.0); ALBUMIN/GLOBULIN RATIO 0.4 (0.8-2.0); ANION GAP 21.9 mmol/L (8-16); CALCIUM 9.5 mg/dL (8.4-10.2); CREATININE, SERUM 6.07 mg/dL (0.57-1.11); POTASSIUM 4.9 mmol/L (3.5-5.1)
--- NOTE | 2018-07-28 06:20 | Diagnostic Imaging Report ---
Examination: Single AP view of the chest. COMPARISON: 07/27/2018 INDICATION: Shortness of breath. End-stage renal disease. DISCUSSION: Tubes and lines: Endotracheal tube and enteric tube are unchanged in position; the enteric tube distal tip is not included, extending to the left upper quadrant. Lungs and pleura: Redemonstration of low lung volume bilaterally, with bilateral pulmonary venous congestion. Mild bilateral central pulmonary edema is unchanged. Bibasilar subsegmental atelectasis. No significant pleural effusion. Cardiomediastinal: Enlargement of the cardiac silhouette is unchanged. No acute osseous abnormality. IMPRESSION: Interval change. Pulmonary venous congestion and interstitial pulmonary edema. Stable tubes and lines. Signed by: Dr. Surendra Herman M.D. on 07/28/2018 6:16 AM
[2018-07-28] MEDS: VANCOMYCIN 1GM/NS 250 ML 250 ML IV SCH (07:04)
[2018-07-28] MEDS: HEPARIN SOD (PORCINE) 5,000 UNIT/ML VIAL SC SCH ×3 (07:05→21:53)
[2018-07-28 07:47] LABS: EOSINOPHILS % (MANUAL) 1 % (0-7); HYPOCHROMASIA SLIGHT; LYMPHOCYTES % (MANUAL) 6 % (19-48); MONOCYTES % (MANUAL) 6 % (3.4-9.0); NEUTROPHILS % (MANUAL) 87 % (40-74)
[2018-07-28] MEDS: FERROUS SULFATE 325 MG TAB PO SCH ×2 (08:00→16:39)
[2018-07-28] MEDS ORDERED: SODIUM CHLORIDE 0.9% 1000ML 1,000 ML ONE (08:30)
[2018-07-28] MEDS: VASOPRESSIN 100 UNIT in DEXTROSE 5% 100ML 100 ML IV PRN (08:46)
[2018-07-28] MEDS: FAMOTIDINE 20 MG/2 ML VIAL IV SCH (09:00)
[2018-07-28] MEDS: ASPIRIN 325 MG TAB EC PO SCH (09:00)
[2018-07-28] MEDS: ISOSORBIDE MONONITRATE 30 MG TAB CR PO SCH (09:00)
[2018-07-28] MEDS ORDERED: SODIUM CHLORIDE 0.9% 1000ML 2,000 ML IV PRN (10:00)
[2018-07-28] MEDS ORDERED: AZITHROMYCIN 500MG/NS 250 ML 250 ML IV SCH (10:00)
--- NOTE | 2018-07-28 13:21 | NUR ---
Nutrition Intervention Note RD Recommendation(s) for Physician: - Until pt is hemodynamically stable recommend holding TF or trophic feeds of 10 ml/hr due to high dose pressor requirements. - When hemodynamically stable, recommend TF of Vital HP at 10 ml/hr, advance as tolerated to goal rate of 50 ml/hr (to provide 1200 kcal and 105 gm protein per day). - Water flushes and fluid management per MD. Plan of Care: RD following, monitoring for tolerance and adequacy Nutrition reason for involvement: Follow up RD Assessment 07/28: Pt remains intubated and sedated. Pt currently high dose pressors of Levophed at 25 mcg/min and Vasopressin at 1.8 ml/hr. Pt on TF of Nepro at 40 ml/hr and receiving HD tx at time of visit. No family at bedside at time of visit. POC and rec's reviewed with RN on unit. Initial encounter with patient. Pt with a change of status on 07/24. She became unresponsive , a rapid response was called and she is now orally intubated and sedated. Orogastric tube in place on suction at time of visit. Unable to obtain a nutrition Hx from Pt. Pt is well known at [facility]. Overweight/obesity, Principal Problems/Diagnoses: Chest Pain PMH: ESRD, diastolic heart failure, HTN, Hyperlipidemia IVF: Levophed at 25 mcg/min, Vasopressin at 1.8 ml/hr, Fentanyl drip GI: LBM 07/28 Skin: R knee wound Labs: 07/28: Na 136, K 4.9, BUN 37, Cr 6.07, Gluc 190 Meds: levophed, vasopressin, fentanyl, abx, feosol, versed, lispro Malnutrition Evaluation (07/25/2018) The patient does not meet criteria for a specified degree of malnutrition at this time. Will re-evaluate at follow-up as appropriate. Diet Education Needs Assessment: Diet education not indicated. Ht:61 Wt:340.31lbs BMI:64.3kg/m2 IBW:105lbs Estimated Nutritional Needs: 3665-5604 kcal (22-25 kcal/kg/IBW) 72-119 gm protein (1.5-2 g/kg/IBW) Nutrition Prescription (Diet Order):NPO Food Allergies: No known food allergies Diet Adequacy: Not meeting calorie needs, Not meeting protein needs Nutrition Care Level: High Nutrition Diagnosis: Swallowing difficulty related to acute illness as evidenced by respiratory failure/oral intubation Goal:Patient will meet 75-100% of estimated needs by follow up Progress: Progressing Interventions: Modify formula/solution, Composition, Rate, Route, IVF, Prescription medications Monitoring/Evaluation: Total energy intake, Total protein intake, Formula/Solution, IVF, Prescription medication, Weight change Signed: Leanna Bergman RD, LD, [facility]
[2018-07-28] MEDS: MIDAZOLAM HCL 2 MG/2 ML VIAL IV PRN (14:35)
--- NOTE | 2018-07-28 14:54 | NUR ---
WOUND CARE PUP SCREEN STATUS: Kerwin Score =10 Strict PUP Active LOS= 6 Days Age= 42 Rotational BARRIE Air Mattress. HOB < / = 30 Degrees Heel Protectors in Place Patient Position Changes Set to q15 min. PATIENT VISIT / SKIN CHECK: No Pressure Ulcers Identified. Pustules to Left Upper Posterior Thigh- Early Yeast Scattered Folliculitis. RECOMMENDATION: - Bilateral Groin, Posterior Upper Thighs- Nystatin Powder q12h and PRN Soiling. - Continue Strict PUP - Continue Rotational BARRIE Air Mattress set o q15min intervals at medium rotation setting. - Continue Bilateral Heel Protectors / Offload Heels with Pillows Addendum: 07/28/18 at 1503 by Cj Helm RN Amended: Links added.
--- NOTE | 2018-07-28 19:00 | NUR ---
Report received. Assumed care. Assessment done. See interventions. Orally intubated with 7.5 FR ETT secured @ 22cm at the lip. Vent settings: TV 450, FIO2 50%, PRVC 18 & PEEP 5cm. IVs: Norepinephrine 25mcg/min or 46.9 ml/hr, Fentanyl @ 300mcg/hr or 37.5ml/hr & Vasopressin @ .04 units/min or 2.4ml/hr.
--- NOTE | 2018-07-28 19:53 | NUR ---
OGT in place clamped.
--- NOTE | 2018-07-28 20:00 | NUR ---
Temp 102.9. Too soon for Tylenol.
[2018-07-28] MEDS: NYSTATIN 15 GM POWDER UD BTL TOP SCH (21:24)
--- NOTE | 2018-07-28 22:02 | Progress Note ---
DATE: 07/28/2018 Cardiology progress note. SUBJECTIVE: Has worsening pressor requirements today. Blood pressure remains borderline. Remains critically ill, still febrile with a temperature of 103. OBJECTIVE: VITAL SIGNS: Temperature 102.6, pulse 116, respiratory rate 18, blood pressure 97/60, and saturating 94% on mechanical ventilation. GENERAL: Obese female, intubated and sedated. CARDIOVASCULAR: Regular rate and rhythm. No murmurs, rubs, or gallops. LUNGS: Coarse breath sounds bilaterally, mechanical breath sounds. ABDOMEN: Obese, soft, nontender. NEURO AND PSYCH: The patient is intubated and sedated. INPATIENT MEDICATIONS: Reviewed. LABORATORY DATA: Reviewed. IMAGING DATA: Reviewed. ASSESSMENT AND PLAN: 1. Acute hypercapnic respiratory failure, on mechanical ventilation support. 2. Methicillin-resistant Staphylococcus aureus pneumonia. 3. Chest pain. 4. Hypertension. 5. Hyperlipidemia. 6. End-stage renal disease. 7. Chronic diastolic heart failure. 8. Morbid obesity. 9. Obstructive sleep apnea. 10. Septic shock. RECOMMENDATIONS: Treatment of septic shock and methicillin-resistant Staphylococcus aureus pneumonia per primary team. The patient remains critically ill. Blood cultures negative so far. If blood cultures positive for methicillin-resistant Staphylococcus aureus, we will consider doing a ERIBERTO. We will continue to monitor closely. The stress test was mildly abnormal. This will require cardiac catheterization at some point once she recovers from her critical illness. Thank you for this consult. We will continue to follow. MD MONIKA Merino/MODL /[id number]
--- NOTE | 2018-07-28 22:20 | NUR ---
Temp 103.0. Tylenol elixir given.
--- NOTE | 2018-07-28 22:58 | NUR ---
Cleaned for mod soft brown stool.
[2018-07-28] MEDS: FENTANYL CITRATE INJ 2,000 MCG in SODIUM CHLORIDE 0.9% 250ML 210 ML IV PRN (23:49)
[2018-07-29] VITALS (72 sets, daily range): BP systolic 75–123; BP diastolic 38–100
--- NOTE | 2018-07-29 00:17 | NUR ---
Cleaned for large amt loose brown stool. Very agitated. Medicated with Ativan per OGT.
[2018-07-29] MEDS: LORAZEPAM 1 MG TAB NG PRN ×5 (00:18→17:45)
[2018-07-29] MEDS: NOREPINEPHRINE INJ 4MG/4ML 8 MG in DEXTROSE 5% 250ML 250 ML IV SCH ×5 (03:10→23:45)
[2018-07-29 05:30] LABS: BASOPHILS % 0.3 % (0.0-1.0); EOSINOPHILS # (AUTO) 0.1 (0.0-0.4); EOSINOPHILS % 0.7 % (0.0-6.0); HEMATOCRIT 31.6 % (34.2-44.1); LYMPHOCYTES # (AUTO) 1.7 (1.0-3.2); LYMPHOCYTES % 14.7 % (18.0-39.1); MEAN CORPUSCULAR HEMOGLOBIN 31.4 pg (28-32); MEAN CORPUSCULAR HGB CONC 28.5 g/dL (31-35); MEAN CORPUSCULAR VOLUME 110.1 fL (81-99); MONOCYTES # (AUTO) 1.3 (0.2-0.8); MONOCYTES % 11.2 % (4.4-11.3); NEUTROPHILS # (AUTO) 8.6 (2.1-6.9); NEUTROPHILS % 72.5 % (38.7-80.0); PLATELET COUNT 251 x10e3/uL (140-360); RED BLOOD COUNT 2.87 x10e6/uL (3.6-5.1); RED CELL DISTRIBUTION WIDTH 15.2 % (11.7-14.4)
[2018-07-29 05:48] LABS: ANION GAP 21.3 mmol/L (8-16); CALCIUM 9.5 mg/dL (8.4-10.2); CREATININE, SERUM 6.74 mg/dL (0.57-1.11); POTASSIUM 5.3 mmol/L (3.5-5.1)
--- NOTE | 2018-07-29 06:06 | NUR ---
Cleaned for mod soft brown stool.
[2018-07-29] MEDS: HEPARIN SOD (PORCINE) 5,000 UNIT/ML VIAL SC SCH ×3 (06:09→21:44)
[2018-07-29] MEDS: INSULIN LISPRO 100 UNIT/1 ML 3ML VIAL SQ SCH ×3 (06:12→17:43)
[2018-07-29] MEDS: ACETAMINOPHEN 325 MG/10 ML UDC NG PRN (06:45)
--- NOTE | 2018-07-29 06:45 | NUR ---
Temp 103. Tylenol per NGT given.
[2018-07-29] MEDS: FENTANYL CITRATE INJ 2,000 MCG in SODIUM CHLORIDE 0.9% 250ML 210 ML IV PRN ×3 (06:54→20:10)
[2018-07-29] MEDS: FERROUS SULFATE 325 MG TAB PO SCH ×2 (08:00→16:30)
[2018-07-29] MEDS ORDERED: NOREPINEPHRINE 8 MG/D5W 250 ML 250 ML ONE (08:07)
[2018-07-29] MEDS: ISOSORBIDE MONONITRATE 30 MG TAB CR PO SCH (08:26)
[2018-07-29] MEDS: NYSTATIN 15 GM POWDER UD BTL TOP SCH ×2 (08:27→21:42)
[2018-07-29] MEDS: ACETAMINOPHEN 1000 MG/100 ML IV SCH ×3 (08:30→17:25)
[2018-07-29] MEDS: MIDAZOLAM HCL 2 MG/2 ML VIAL IV PRN ×2 (08:45→21:35)
[2018-07-29] MEDS: ASPIRIN 325 MG TAB EC PO SCH (09:00)
[2018-07-29] MEDS: FAMOTIDINE 20 MG/2 ML VIAL IV SCH (09:30)
[2018-07-29 10:30] LABS: ABG HCO3 22 mmol/L (23-28); ABG PCO2 56 mmHg (41-51); ABG PH 7.21 (7.31-7.41); ABG PO2 100 mmHg (80-105)
[2018-07-29 10:52] LABS: HIV 1&2 AB SCREEN NON-REACTIVE (NONREACTIVE)
[2018-07-29] MEDS: CEFAZOLIN SOD 2 GM/D5W 50ML 50 ML IV SCH (11:15)
[2018-07-29] MEDS ORDERED: SOD POLYSTYRENE SULFONATE SUSP 15 GM/60 ML BTL PO ONE (16:15)
--- NOTE | 2018-07-29 17:17 | Progress Note ---
DATE: 07/29/2018 Cardiology Progress Note SUBJECTIVE: Remains critically ill. High-dose pressors. Remains febrile. OBJECTIVE: VITAL SIGNS: Temperature 102.2, pulse 104, respiratory rate 18, blood pressure 109/72, and saturating 96% on mechanical ventilation. GENERAL: female, intubated, and sedated. CARDIOVASCULAR: Regular rate and rhythm. No murmurs, rubs, or gallops. LUNGS: Coarse breath sounds bilaterally. Mechanical breath sounds. ABDOMEN: Obese, soft, and nontender. NEURO AND PSYCH: The patient is intubated and sedated. INPATIENT MEDICATIONS: Reviewed. LABORATORY DATA: Reviewed. IMAGING DATA: Reviewed. ASSESSMENT: 1. Septic shock. 2. Acute hypercapnic respiratory failure, on mechanical ventilation support. 3. Methicillin-resistant Staphylococcus aureus pneumonia. 4. Chest pain. 5. Hypertension. 6. Hyperlipidemia. 7. End-stage renal disease. 8. Chronic diastolic heart failure. 9. Morbid obesity. 10. Obstructive sleep apnea. RECOMMENDATIONS: Remains critically ill in septic shock requiring high-dose pressors, still having high-grade fevers, on broad-spectrum antibiotics. We will defer treatment to primary team. When she recovers from acute illness, she will need coronary angiogram for abnormal stress test that was performed earlier this admission. Currently, stable from a Cardiovascular standpoint. Holding all blood pressure medications due to sepsis. Thank you for this consult. We will continue to follow. MD MONIKA Merino/FÉLIXL /[id number]
[2018-07-29] MEDS: VASOPRESSIN 100 UNIT in DEXTROSE 5% 100ML 100 ML IV PRN (17:26)
--- NOTE | 2018-07-29 19:06 | NUR ---
[id number] please see note in chart
--- NOTE | 2018-07-29 22:28 | Progress Note ---
DATE: SUBJECTIVE: Ms. Correa remains in intensive care unit. She remains very sick. She is still running fever, but her physical examination is unchanged. OBJECTIVE: GENERAL: She is obese, intubated. VITAL SIGNS: T-max 102.2 and heart is 104. HEENT: Normocephalic. Not icteric. NECK: Supple. CHEST: Clear. ABDOMEN: Soft. Bowel sounds present. EXTREMITIES: No edema. SKIN: No rash. LABORATORY DATA: Her laboratory data reviewed. Her sputum showing MSSA. Blood cultures negative for 48 hours. Her white count is 11.83, yesterday was 14.3, hemoglobin 9, and hematocrit 31. Sodium 135, potassium 5.3. Her serology antibody for hepatitis surface antibody was positive. HIV negative. Her sedimentation rate is 121. Her imaging reviewed. Her chest x-ray showed pulmonary edema, congestion. Her abdominal CAT scan showed limited examination, but there is pneumonia, otherwise no acute finding. IMPRESSION AND PLAN: Fever since admission, altered mental status since admission, sepsis, source is unclear. Blood cultures all what we have is MSSA, so it could be pneumonia aspiration, but there is MSSA. We will change her to Ancef at renal dose. Fever persists at the present time. I am concerned if her fever is either drug related or collagen disease versus other. Her lactic acid I am told was normal and the procalcitonin is still pending. Clinically, she is about the same. End-stage disease, on hemodialysis. Morbidly obese patient. We will follow. MD ANAHI Lezama/MODL /[id number]
[2018-07-30] VITALS (46 sets, daily range): BP systolic 90–140; BP diastolic 47–97
[2018-07-30] MEDS: ACETAMINOPHEN 1000 MG/100 ML IV SCH ×2 (00:24→06:00)
[2018-07-30] MEDS: LORAZEPAM 1 MG TAB NG PRN (00:31)
[2018-07-30] MEDS: INSULIN LISPRO 100 UNIT/1 ML 3ML VIAL SQ SCH ×5 (00:31→23:34)
[2018-07-30] MEDS ORDERED: SODIUM CHLORIDE 0.9% 250ML 250 ML ONE (00:38)
[2018-07-30] MEDS: VASOPRESSIN 100 UNIT in DEXTROSE 5% 100ML 100 ML IV PRN ×2 (02:10→04:40)
[2018-07-30] MEDS: FENTANYL CITRATE INJ 2,000 MCG in SODIUM CHLORIDE 0.9% 250ML 210 ML IV PRN (03:20)
[2018-07-30 05:41] LABS: BASOPHILS % 0.3 % (0.0-1.0); EOSINOPHILS # (AUTO) 0.3 (0.0-0.4); EOSINOPHILS % 1.6 % (0.0-6.0); HEMATOCRIT 32.5 % (34.2-44.1); HEMOGLOBIN 9.6 g/dL (12.0-16.0); LYMPHOCYTES # (AUTO) 1.8 (1.0-3.2); LYMPHOCYTES % 11.5 % (18.0-39.1); MEAN CORPUSCULAR HGB CONC 29.5 g/dL (31-35); MEAN CORPUSCULAR VOLUME 108.3 fL (81-99); MONOCYTES # (AUTO) 0.9 (0.2-0.8); MONOCYTES % 5.9 % (4.4-11.3); NEUTROPHILS # (AUTO) 12.4 (2.1-6.9); NEUTROPHILS % 80.1 % (38.7-80.0); PLATELET COUNT 250 x10e3/uL (140-360); RED CELL DISTRIBUTION WIDTH 15.2 % (11.7-14.4)
[2018-07-30 06:07] LABS: ANION GAP 24.5 mmol/L (8-16); CALCIUM 10.1 mg/dL (8.4-10.2); CREATININE, SERUM 8.88 mg/dL (0.57-1.11); POTASSIUM 5.5 mmol/L (3.5-5.1)
--- NOTE | 2018-07-30 06:29 | Diagnostic Imaging Report ---
Examination: Single AP view of the chest. COMPARISON: 07/28/2018 INDICATION: Shortness of breath. End-stage renal disease. DISCUSSION: Tubes and lines: Endotracheal tube and enteric tube are unchanged in position; the enteric tube distal tip is not included, extending to the left upper quadrant. Lungs and pleura: Redemonstration of low lung volume bilaterally, with bilateral pulmonary venous congestion. Interval increase in density in the hemithorax bilaterally may reflect layering pleural effusions are increasing pulmonary edema. Bibasilar subsegmental atelectasis. Cardiomediastinal: Marked widening of the cardiac mediastinal silhouette may be in part related to low lung volumes and portable technique. No acute osseous abnormality. IMPRESSION: Increased density throughout the chest may be in part related to portable technique and low lung volumes, however, cannot exclude layering increasing pleural effusions and worsening pulmonary edema. Signed by: Dr. Surendra Herman M.D. on 07/30/2018 6:26 AM
[2018-07-30] MEDS: HEPARIN SOD (PORCINE) 5,000 UNIT/ML VIAL SC SCH ×3 (06:50→23:34)
[2018-07-30] MEDS: MIDAZOLAM HCL 2 MG/2 ML VIAL IV PRN (06:53)
[2018-07-30] MEDS: FERROUS SULFATE 325 MG TAB PO SCH ×2 (08:00→17:00)
[2018-07-30] MEDS ORDERED: NOREPINEPHRINE 8 MG/D5W 250 ML 250 ML ONE ×3 (08:13→18:01)
[2018-07-30] MEDS: NYSTATIN 15 GM POWDER UD BTL TOP SCH ×2 (09:00→23:33)
[2018-07-30] MEDS ORDERED: CEFAZOLIN SOD 1 GM VIAL IV SCH (09:00)
[2018-07-30] MEDS: ISOSORBIDE MONONITRATE 30 MG TAB CR PO SCH (09:00)
[2018-07-30] MEDS: ASPIRIN 325 MG TAB EC PO SCH (09:00)
--- NOTE | 2018-07-30 13:00 | Progress Note ---
DATE: 07/30/2018 Cardiology Progress Note SUBJECTIVE: No major events overnight. Remains intubated and sedated on pressors, critically ill. OBJECTIVE: VITAL SIGNS: Temperature 99.0, T-max of 103, pulse 83, respiratory rate 18, blood pressure 101/68, and saturating 97% on mechanical ventilation. GENERAL: Obese female, intubated and sedated. CARDIOVASCULAR: Regular rate and rhythm. No murmurs, rubs, or gallops. LUNGS: Rhonchi bilaterally. Mechanical ventilation sounds. ABDOMEN: Obese, soft, and nontender. NEURO AND PSYCH: Intubated, sedated, and unresponsive. INPATIENT MEDICATIONS: Reviewed. LABORATORY DATA: Reviewed. IMAGING DATA: Reviewed. ASSESSMENT AND PLAN: 1. Septic shock. 2. Acute hypercapnic respiratory failure, on mechanical ventilation. 3. Chest pain. 4. Hypertension. 5. Hyperlipidemia. 6. End-stage renal disease. 7. Chronic diastolic heart failure. 8. Morbid obesity. 9. Obstructive sleep apnea. RECOMMENDATIONS: Remains critically ill. She is on high-dose pressors, undergoing dialysis today. Plan for coronary angiography once recovers from acute illness. No suspicion for endocarditis at this time. Thank you for this consult. We will continue to follow. MD MONIKA Merino/MATEUS /[id number]
--- NOTE | 2018-07-30 13:43 | NUR ---
HEMODIALYSIS COMPLETE AND 2 LITERS OF FLUID REMOVED PER DIALYSIS NURSE.
--- NOTE | 2018-07-30 15:00 | NUR ---
Ultrasound here at bedside to perform U/S of chest
--- NOTE | 2018-07-30 15:36 | Diagnostic Imaging Report ---
Limited bilateral chest ultrasound History: Evaluate for possible pleural effusion noted on prior radiograph. Comparison: Chest radiograph 07/30/2018. Technique/findings: Limited bilateral chest ultrasound was performed to evaluate for pleural effusion. There is a trace left pleural effusion. No evidence of right pleural effusion. IMPRESSION: Trace left pleural effusion. No evidence of right pleural effusion. Signed by: Dr. Robin Brown MD on 07/30/2018 3:33 PM
[2018-07-30] MEDS ORDERED: NYSTATIN 15 GM POWDER UD BTL TOP SCH (17:00)
[2018-07-30 17:12] LABS: ABG PH 7.25 (7.31-7.41)
[2018-07-30 17:13] LABS: ABG HCO3 26 mmol/L (23-28); ABG PCO2 58 mmHg (41-51); ABG PO2 82 mmHg (80-105)
--- NOTE | 2018-07-30 17:14 | NUR ---
WOUND CARE CONSULTATION INITIAL EVALUATION Patient admitted from DX:Chest Pain, ESRD Wound Care Consulted For Evaluation of Redness to Gluteal areas. PATIENT VISIT: Patient is intubated, unable to communicate, has bilateral wrist restraints Kerwin Score = 9 Strict PUP Active 2+ person assist to turn. Rotational BARRIE Air Mattress in Place. PUP SCREEN PERFORMED 07/29/18 and Treatment for early signs of yeast initiated. IMPRESSION: NO PRESSURE ULCERS IDENTIFIED, NO REDNESS. Skin Intact. YEAST PUSTULES IMPROVING TO BILATERAL GLUTEAL AREAS. Stable Scabs to BLE at [place]. Feet with generalized Blanchable Redness. No Pressure Ulcers Noted. RECOMMENDATION: CONTINUE CURRENT TREATMENT PLAN CONTINUE BILATERAL HEEL PROTECTORS CONTINUE ROTATIONAL MATTRESS CONTINUE STRICT PUP Thank you for consulting with Wound Care. Addendum: 07/30/18 at 1708 by Cj Helm RN Addendum: 07/30/18 at 1714 by Cj Helm RN Amended: Links added.
[2018-07-30] MEDS: CEFAZOLIN SOD 2 GM/D5W 50ML 50 ML IV SCH (18:23)
[2018-07-30] MEDS: FAMOTIDINE 20 MG/2 ML VIAL IV SCH (18:23)
[2018-07-30] MEDS ORDERED: DEXTROSE 5% 100ML 0 ML IV ONE (23:34)
[2018-07-31] VITALS (41 sets, daily range): BP systolic 91–118; BP diastolic 51–76
[2018-07-31] MEDS: FENTANYL CITRATE INJ 2,000 MCG in SODIUM CHLORIDE 0.9% 250ML 210 ML IV PRN ×2 (00:22→20:47)
[2018-07-31] MEDS: NOREPINEPHRINE INJ 4MG/4ML 8 MG in DEXTROSE 5% 250ML 250 ML IV SCH (01:19)
[2018-07-31] MEDS: MIDAZOLAM HCL 2 MG/2 ML VIAL IV PRN ×3 (03:16→15:45)
[2018-07-31 05:47] LABS: BASOPHILS % 0.3 % (0.0-1.0); EOSINOPHILS # (AUTO) 0.4 (0.0-0.4); EOSINOPHILS % 2.9 % (0.0-6.0); HEMATOCRIT 30.5 % (34.2-44.1); HEMOGLOBIN 8.9 g/dL (12.0-16.0); LYMPHOCYTES # (AUTO) 1.4 (1.0-3.2); LYMPHOCYTES % 9.4 % (18.0-39.1); MEAN CORPUSCULAR HEMOGLOBIN 31.7 pg (28-32); MEAN CORPUSCULAR HGB CONC 29.2 g/dL (31-35); MEAN CORPUSCULAR VOLUME 108.5 fL (81-99); MONOCYTES # (AUTO) 0.8 (0.2-0.8); MONOCYTES % 5.3 % (4.4-11.3); NEUTROPHILS # (AUTO) 11.8 (2.1-6.9); NEUTROPHILS % 81.5 % (38.7-80.0); PLATELET COUNT 259 x10e3/uL (140-360); RED BLOOD COUNT 2.81 x10e6/uL (3.6-5.1)
[2018-07-31] MEDS: HEPARIN SOD (PORCINE) 5,000 UNIT/ML VIAL SC SCH ×3 (06:09→21:58)
[2018-07-31] MEDS: INSULIN LISPRO 100 UNIT/1 ML 3ML VIAL SQ SCH ×4 (06:10→23:35)
[2018-07-31 06:20] LABS: CALCIUM 9.3 mg/dL (8.4-10.2); CREATININE, SERUM 6.28 mg/dL (0.57-1.11)
--- NOTE | 2018-07-31 06:27 | Diagnostic Imaging Report ---
Examination: Single AP view of the chest. COMPARISON: 07/30/2018 INDICATION: Chest pain. End-stage renal disease. DISCUSSION: Tubes and lines: The enteric tube distal tip is not included, extending to the left upper quadrant. Overlying artifact in the neck difficult evaluation for ET tube which is clearly visualized. Lungs and pleura: No significant change in low lung volume bilaterally, with bilateral pulmonary venous congestion. Interval increase in density in the hemithorax bilaterally. Cardiomediastinal: Marked widening of the cardiac mediastinal silhouette again observed. No acute osseous abnormality. IMPRESSION: Findings again consistent with decompensated CHF with marked enlargement of the cardiac silhouette possibly in part reflecting pericardial effusion. ET tube not well visualized due to overlying artifact. Recommend repeat exam. Signed by: Dr. Surendra Herman M.D. on 07/31/2018 6:24 AM
[2018-07-31] MEDS: FERROUS SULFATE 325 MG TAB PO SCH ×2 (07:48→16:44)
[2018-07-31] MEDS: ISOSORBIDE MONONITRATE 30 MG TAB CR PO SCH (07:48)
[2018-07-31] MEDS ORDERED: SODIUM CHLORIDE 0.9% 250ML 250 ML ONE (09:00)
[2018-07-31] MEDS: ASPIRIN 325 MG TAB EC PO SCH (09:00)
[2018-07-31] MEDS: CEFAZOLIN SOD 2 GM/D5W 50ML 50 ML IV SCH (09:59)
[2018-07-31] MEDS: NYSTATIN 15 GM POWDER UD BTL TOP SCH ×2 (10:00→21:24)
[2018-07-31] MEDS: FAMOTIDINE 20 MG/2 ML VIAL IV SCH (10:00)
--- NOTE | 2018-07-31 12:39 | NUR ---
Nutrition Intervention Note RD Recommendation(s) for Physician: - Until pt is hemodynamically stable recommend holding TF or trophic feeds of 10 ml/hr due to high dose pressor requirements. - When hemodynamically stable, recommend TF of Vital HP at 10 ml/hr, advance as tolerated to goal rate of 50 ml/hr (to provide 1200 kcal and 105 gm protein per day). - Water flushes and fluid management per MD. Plan of Care: RD following, monitoring for tolerance and adequacy Nutrition reason for involvement: Follow up RD Assessment 07/31: Follow up: Pt remains intubated and sedated. Pt has been weened off of vasopressin, but is still on levo (2mcg/min) per nurse. Per nurse: doctors will not try to extubate until pt is off of all pressors. Pt was ordered Nepro at 40 ml/hr (which is currently on hold and will be started at 20 ml/hr per nurse). Spoke with nurse about new formula recommendation, since pt is still intubated and on pressor support- above recommendations are appropriate. Nurse reported she will change TF. Will continue to monitor. 07/28: Pt remains intubated and sedated. Pt currently high dose pressors of Levophed at 25 mcg/min and Vasopressin at 1.8 ml/hr. Pt on TF of Nepro at 40 ml/hr and receiving HD tx at time of visit. No family at bedside at time of visit. POC and rec's reviewed with RN on unit. Initial encounter with patient. Pt with a change of status on 07/24. She became unresponsive , a rapid response was called and she is now orally intubated and sedated. Orogastric tube in place on suction at time of visit. Unable to obtain a nutrition Hx from Pt. Pt is well known at [facility]. Overweight/obesity, Principal Problems/Diagnoses: Chest Pain PMH: ESRD, diastolic heart failure, HTN, Hyperlipidemia IVF: Levophed, abx GI: Abd: soft, non tender Skin: R knee wound Labs: 07/31: Cl 96, BUN 33. Creat 6.28, Gluc: 216 07/28: Na 136, K 4.9, BUN 37, Cr 6.07, Gluc 190 Meds: levophed, vasopressin, fentanyl, abx, feosol, versed, lispro, ferrous sulfate Malnutrition Evaluation (07/25/2018) The patient does not meet criteria for a specified degree of malnutrition at this time. Will re-evaluate at follow-up as appropriate. Diet Education Needs Assessment: Diet education not indicated. Ht:61 Wt:329 lbs BMI:62.1kg/m2 IBW:105lbs Estimated Nutritional Needs: 6248-0484 kcal (22-25 kcal/kg/IBW) 72-119 gm protein (1.5-2 g/kg/IBW) Nutrition Prescription (Diet Order):NPO Food Allergies: No known food allergies Diet Adequacy: Not meeting calorie needs, Not meeting protein needs Nutrition Care Level: High Nutrition Diagnosis: Swallowing difficulty related to acute illness as evidenced by respiratory failure/oral intubation Goal:Patient will meet 75-100% of estimated needs by follow up Progress: Progressing Interventions: Modify formula/solution, Composition, Rate, Route, IVF, Prescription medications Monitoring/Evaluation: Total energy intake, Total protein intake, Formula/Solution, IVF, Prescription medication, Weight change Signed: Abby Cruz RD, LD
[2018-07-31] MEDS: ACETAMINOPHEN 325 MG/10 ML UDC NG PRN (17:13)
--- NOTE | 2018-07-31 21:46 | Progress Note ---
DATE: 07/31/2018 Cardiology Progress Note SUBJECTIVE: Clinically slightly better today. Still remains febrile. OBJECTIVE: VITAL SIGNS: Temperature 101.4, pulse 84, respiratory rate 18, blood pressure 108/65, saturating 98% on mechanical ventilation. GENERAL: Obese female, intubated and sedated. CARDIOVASCULAR: Regular rate and rhythm. No murmurs, rubs, or gallops. LUNGS: Bilateral rhonchi, mechanical ventilation sounds. ABDOMEN: Obese, soft, nontender, nondistended. NEURO AND PSYCH: Intubated, sedated, unresponsive. INPATIENT MEDICATIONS: Reviewed. LABORATORY DATA: Reviewed. IMAGING DATA: Reviewed. ASSESSMENT AND PLAN: 1. Septic shock. 2. Acute hypercapnic respiratory failure, on mechanical ventilation. 3. Chest pain. 4. Hypertension. 5. Hyperlipidemia. 6. End-stage renal disease. 7. Chronic diastolic heart failure. 8. Morbid obesity. 9. Obstructive sleep apnea. RECOMMENDATIONS: Remains critically ill. Pressor requirements, slightly improved today. Hemodynamically stable. Continue supportive care and treatment for septic shock per primary team. Once completely recovers from her acute illness, will need coronary angiography for her positive stress test. This does not have to be done as an inpatient. The patient needs further recovery after her critical illness. Thank you for this consult. We will continue to follow. MD MONIKA Merino/FÉLIXL /[id number]
[2018-07-31] MEDS: LORAZEPAM 1 MG TAB NG PRN (23:07)
[2018-08-01] VITALS (45 sets, daily range): BP systolic 76–127; BP diastolic 46–84
[2018-08-01] MEDS: ACETAMINOPHEN 325 MG/10 ML UDC NG PRN
[2018-08-01] MEDS: MIDAZOLAM HCL 2 MG/2 ML VIAL IV PRN ×3 (04:09→12:40)
[2018-08-01 04:51] LABS: BASOPHILS % 0.3 % (0.0-1.0); EOSINOPHILS # (AUTO) 0.5 (0.0-0.4); EOSINOPHILS % 4.1 % (0.0-6.0); HEMATOCRIT 25.8 % (34.2-44.1); HEMOGLOBIN 7.6 g/dL (12.0-16.0); LYMPHOCYTES # (AUTO) 1.4 (1.0-3.2); LYMPHOCYTES % 12.5 % (18.0-39.1); MEAN CORPUSCULAR HEMOGLOBIN 31.8 pg (28-32); MEAN CORPUSCULAR HGB CONC 29.5 g/dL (31-35); MEAN CORPUSCULAR VOLUME 107.9 fL (81-99); MONOCYTES # (AUTO) 0.7 (0.2-0.8); MONOCYTES % 6.2 % (4.4-11.3); NEUTROPHILS # (AUTO) 8.7 (2.1-6.9); NEUTROPHILS % 76.3 % (38.7-80.0); PLATELET COUNT 250 x10e3/uL (140-360); RED BLOOD COUNT 2.39 x10e6/uL (3.6-5.1); RED CELL DISTRIBUTION WIDTH 15.1 % (11.7-14.4)
[2018-08-01 05:08] LABS: ANION GAP 20.3 mmol/L (8-16); CALCIUM 8.9 mg/dL (8.4-10.2); CREATININE, SERUM 8.36 mg/dL (0.57-1.11); POTASSIUM 3.3 mmol/L (3.5-5.1)
[2018-08-01] MEDS: INSULIN LISPRO 100 UNIT/1 ML 3ML VIAL SQ SCH ×4 (05:24→23:39)
[2018-08-01] MEDS: FENTANYL CITRATE INJ 2,000 MCG in SODIUM CHLORIDE 0.9% 250ML 210 ML IV PRN ×3 (05:33→20:22)
[2018-08-01] MEDS: HEPARIN SOD (PORCINE) 5,000 UNIT/ML VIAL SC SCH (05:39)
--- NOTE | 2018-08-01 07:30 | NUR ---
rotational bed set
[2018-08-01] MEDS: FERROUS SULFATE 325 MG TAB PO SCH ×3 (08:00→17:09)
--- NOTE | 2018-08-01 08:49 | Diagnostic Imaging Report ---
Examination: Single AP view of the chest. COMPARISON: 07/31/2018 INDICATION: Chest pain. End-stage renal disease. DISCUSSION: Tubes and lines: The enteric tube distal tip is not included, extending to the left upper quadrant. Lungs and pleura: No significant change in low lung volume bilaterally, with bilateral pulmonary venous congestion. Interval increase in density in the hemithorax bilaterally. Cardiomediastinal: Marked widening of the cardiac mediastinal silhouette again observed. No acute osseous abnormality. IMPRESSION: No significant change in findings consistent with decompensated CHF with marked enlargement of the cardiac silhouette possibly in part reflecting pericardial effusion. ET tube no longer visualized, likely removed. Signed by: Dr. Surendra Herman M.D. on 08/01/2018 6:51 AM
[2018-08-01] MEDS: ISOSORBIDE MONONITRATE 30 MG TAB CR PO SCH (09:00)
[2018-08-01] MEDS: ASPIRIN 325 MG TAB EC PO SCH ×2 (09:00→14:33)
[2018-08-01] MEDS: NYSTATIN 15 GM POWDER UD BTL TOP SCH ×2 (14:33→21:24)
[2018-08-01] MEDS: CEFAZOLIN SOD 2 GM/D5W 50ML 50 ML IV SCH (14:33)
[2018-08-01] MEDS: FAMOTIDINE 20 MG/2 ML VIAL IV SCH (14:33)
--- NOTE | 2018-08-01 16:51 | Progress Note ---
DATE: SUBJECTIVE: Ms. Correa remains in the intensive care unit. She is doing better on the ventilator. OBJECTIVE: VITAL SIGNS: Stable. There is no more fever. HEENT: She is not icteric. NECK: Supple. CHEST: Clear. HEART: S1 and S2. No S3, S4, or murmur. ABDOMEN: Soft, obese. No tenderness. No hepatosplenomegaly. EXTREMITIES: No edema., SKIN: There is no rash. LABORATORY DATA: Reviewed. White count 11, hemoglobin 7.6. Creatinine was 8.04. IMPRESSION: 1. Fever, resolved. It is probably due from drug related, but initially, she came with sepsis and pneumonia with MSSA. 2. Respiratory failure, slowly better. 3. Obesity. 4. Chronic end-stage disease, on hemodialysis. 5. Anemia, multifactorial, acute on chronic. 6. Laboratory data reviewed. Charts reviewed. Discussed with nursing team. Continue with Ancef. Very slow progress. We will follow with you. MD ANAHI Lezama/MODL /[id number]
--- NOTE | 2018-08-01 17:21 | Progress Note ---
DATE: Cardiology Progress Note SUBJECTIVE: The patient is undergoing dialysis, intubated. No events. OBJECTIVE: VITAL SIGNS: Temperature 98.5, heart rate 66, respirations are 17, blood pressure is 97/59, oxygen saturation is 99% on 45% FiO2. GENERAL: No apparent distress. Intubated. Follows commands. CARDIOVASCULAR: Regular rate and rhythm. LUNGS: Diminished breath sounds in bilateral bases. ABDOMEN: Soft, obese, nontender. EXTREMITIES: Edema. LABORATORY DATA: Reviewed. Hemoglobin 7.6, creatinine 8.3. CARDIOVASCULAR MEDICATIONS: Include vasopressin and norepinephrine. ASSESSMENT: 1. Septic shock. 2. Hypercapnic respiratory failure, on mechanical ventilation. 3. Chest pain. 4. Hypertension. 5. Hyperlipidemia. 6. End stage renal disease. 7. Chronic diastolic heart failure. 8. Morbid obesity. 9. Obstructive sleep apnea. RECOMMENDATIONS: Continue weaning vasopressors after dialysis has been completed. Volume management through dialysis. Continue all other treatments for acute illness. The patient will eventually need coronary angiography given that she has a positive stress test in the past. Gavin Funes DO BM/MODL /[id number]
[2018-08-01] MEDS: EPOETIN ALFA 10000 UNIT/ML VIAL SC SCH (18:00)
[2018-08-01] MEDS: NOREPINEPHRINE INJ 4MG/4ML 8 MG in DEXTROSE 5% 250ML 250 ML IV SCH (18:30)
--- NOTE | 2018-08-01 19:00 | NUR ---
Report received. Assumed care. Assessment done. See interventions. Orally intubated with 7.5 FR ETT secured @ 23cm at the lip. Vent settings: TV 450, FIO2 45%, PRVC 17, & PEEP 5cm. Fentanyl @ 150mcg/hr or 18.8ml/hr, Levophed @ 4 mcg/min or 7.5ml/hr & Vasopressin @ 0.02unit/min or 1.2 ml/hr.
--- NOTE | 2018-08-01 22:00 | NUR ---
Complete bed bath given. Bed linens changed. Nystatin applied.
[2018-08-02] VITALS (27 sets, daily range): BP systolic 81–104; BP diastolic 44–72
[2018-08-02] MEDS: NOREPINEPHRINE INJ 4MG/4ML 8 MG in DEXTROSE 5% 250ML 250 ML IV SCH (00:51)
[2018-08-02 04:48] LABS: BASOPHILS % 0.3 % (0.0-1.0); EOSINOPHILS # (AUTO) 0.4 (0.0-0.4); EOSINOPHILS % 3.4 % (0.0-6.0); HEMATOCRIT 27.5 % (34.2-44.1); HEMOGLOBIN 8.2 g/dL (12.0-16.0); LYMPHOCYTES # (AUTO) 1.4 (1.0-3.2); LYMPHOCYTES % 11.2 % (18.0-39.1); MEAN CORPUSCULAR HEMOGLOBIN 31.9 pg (28-32); MEAN CORPUSCULAR HGB CONC 29.8 g/dL (31-35); MONOCYTES # (AUTO) 0.9 (0.2-0.8); NEUTROPHILS # (AUTO) 9.6 (2.1-6.9); NEUTROPHILS % 77.5 % (38.7-80.0); PLATELET COUNT 324 x10e3/uL (140-360); RED BLOOD COUNT 2.57 x10e6/uL (3.6-5.1); RED CELL DISTRIBUTION WIDTH 15.2 % (11.7-14.4)
[2018-08-02 05:07] LABS: CALCIUM 9.1 mg/dL (8.4-10.2); CREATININE, SERUM 5.62 mg/dL (0.57-1.11)
[2018-08-02 05:34] LABS: PHOSPHORUS 4.1 MG/DL (2.3-4.7)
[2018-08-02] MEDS: INSULIN LISPRO 100 UNIT/1 ML 3ML VIAL SQ SCH ×4 (05:45→23:49)
--- NOTE | 2018-08-02 06:09 | Diagnostic Imaging Report ---
Examination: Single AP view of the chest. COMPARISON: 08/01/2018 INDICATION: Chest pain. End-stage renal disease. DISCUSSION: Tubes and lines: Interval placement of a faintly visualized endotracheal tube with distal tip projected just inferior to the level of the thoracic inlet, in adequate position. The enteric tube distal tip is not included, extending to the left upper quadrant. Lungs and pleura: No significant change in low lung volume bilaterally, with bilateral pulmonary venous congestion. Interval increase in density in the hemithorax bilaterally. Cardiomediastinal: Marked widening of the cardiac mediastinal silhouette again observed. No acute osseous abnormality. IMPRESSION: 1. Supporting tubes and lines as detailed above. 2. No significant change in findings consistent with decompensated CHF with marked enlargement of the cardiomediastinal silhouette. Signed by: Dr. Surendra Herman M.D. on 08/02/2018 6:06 AM
[2018-08-02] MEDS ORDERED: SODIUM CHLORIDE 0.9% 250ML 250 ML ONE (06:13)
[2018-08-02] MEDS: ASPIRIN 325 MG TAB EC PO SCH (08:30)
[2018-08-02] MEDS: ISOSORBIDE MONONITRATE 30 MG TAB CR PO SCH (08:30)
[2018-08-02] MEDS: CEFAZOLIN SOD 2 GM/D5W 50ML 50 ML IV SCH (08:30)
[2018-08-02] MEDS: FERROUS SULFATE 325 MG TAB PO SCH ×2 (08:30→17:00)
[2018-08-02] MEDS: NYSTATIN 15 GM POWDER UD BTL TOP SCH ×2 (08:30→21:23)
[2018-08-02] MEDS: FAMOTIDINE 20 MG/2 ML VIAL IV SCH (08:30)
--- NOTE | 2018-08-02 08:55 | NUR ---
PT EXTUBATED PLACED ON BIPAP. WILL MONITOR CLOSELY DENIES SOB AT THIS TIME RR 20 98%
[2018-08-02 09:08] LABS: ABG HCO3 26 mmol/L (23-28); ABG PCO2 51 mmHg (41-51); ABG PH 7.32 (7.31-7.41); ABG PO2 78 mmHg (80-105)
--- NOTE | 2018-08-02 19:00 | NUR ---
Report received. Assumed care. Assessment done. See interventions. Bipap on with sats 98-100%. IV Vasopressin @ 0.04 units/min or 2.4ml/hr & Levophed @ 1.5 mcg/min or 2.8ml/hr.
--- NOTE | 2018-08-02 21:00 | NUR ---
Complete bed bath given. Bed linens changed. Cleaned for mod loose brown stool.
[2018-08-03] VITALS (26 sets, daily range): BP systolic 70–130; BP diastolic 26–87
[2018-08-03 04:49] LABS: BASOPHILS % 0.3 % (0.0-1.0); EOSINOPHILS # (AUTO) 0.4 (0.0-0.4); EOSINOPHILS % 3.5 % (0.0-6.0); HEMATOCRIT 27.9 % (34.2-44.1); LYMPHOCYTES # (AUTO) 1.6 (1.0-3.2); LYMPHOCYTES % 15.8 % (18.0-39.1); MEAN CORPUSCULAR HEMOGLOBIN 30.8 pg (28-32); MEAN CORPUSCULAR HGB CONC 28.7 g/dL (31-35); MEAN CORPUSCULAR VOLUME 107.3 fL (81-99); MONOCYTES # (AUTO) 0.8 (0.2-0.8); MONOCYTES % 8.2 % (4.4-11.3); NEUTROPHILS # (AUTO) 7.4 (2.1-6.9); NEUTROPHILS % 71.5 % (38.7-80.0); PLATELET COUNT 386 x10e3/uL (140-360); RED CELL DISTRIBUTION WIDTH 15.1 % (11.7-14.4)
[2018-08-03 05:04] LABS: CALCIUM 9.5 mg/dL (8.4-10.2); CREATININE, SERUM 8.21 mg/dL (0.57-1.11); MAGNESIUM 2.2 MG/DL (1.3-2.1); PHOSPHORUS 5.7 MG/DL (2.3-4.7)
[2018-08-03] MEDS: INSULIN LISPRO 100 UNIT/1 ML 3ML VIAL SQ SCH ×4 (05:47→23:58)
[2018-08-03] MEDS: FERROUS SULFATE 325 MG TAB PO SCH ×2 (08:00→16:32)
[2018-08-03] MEDS: ISOSORBIDE MONONITRATE 30 MG TAB CR PO SCH (09:00)
[2018-08-03] MEDS: ASPIRIN 325 MG TAB EC PO SCH (09:00)
--- NOTE | 2018-08-03 09:38 | NUR ---
ST Note: Order for modified barium swallow study noted. Pt is beginning HD at this moment. Pt was intubated X 9 days, extubated yesterday 08/02/18 at ~ 8 AM. Will defer any eval of swallow safety until tomorrow, 08/04/17, when pt has been extubated at least 48 hours.
[2018-08-03] MEDS: NYSTATIN 15 GM POWDER UD BTL TOP SCH ×2 (12:35→21:06)
[2018-08-03] MEDS: FAMOTIDINE 20 MG/2 ML VIAL IV SCH (14:39)
[2018-08-03] MEDS: CEFAZOLIN SOD 2 GM/D5W 50ML 50 ML IV SCH (14:39)
[2018-08-03] MEDS: NOREPINEPHRINE INJ 4MG/4ML 8 MG in DEXTROSE 5% 250ML 250 ML IV SCH (21:05)
[2018-08-03] MEDS: VASOPRESSIN 100 UNIT in DEXTROSE 5% 100ML 100 ML IV PRN (21:05)
[2018-08-04] VITALS (22 sets, daily range): BP systolic 71–106; BP diastolic 51–77
[2018-08-04] MEDS ORDERED: DEXTROSE 5% 250ML 250 ML IV ONE (00:38)
[2018-08-04 04:59] LABS: BASOPHILS % 0.3 % (0.0-1.0); EOSINOPHILS # (AUTO) 0.5 (0.0-0.4); EOSINOPHILS % 3.7 % (0.0-6.0); HEMATOCRIT 33.9 % (34.2-44.1); LYMPHOCYTES # (AUTO) 1.3 (1.0-3.2); LYMPHOCYTES % 10.3 % (18.0-39.1); MEAN CORPUSCULAR HEMOGLOBIN 31.6 pg (28-32); MEAN CORPUSCULAR HGB CONC 29.5 g/dL (31-35); MEAN CORPUSCULAR VOLUME 107.3 fL (81-99); MONOCYTES # (AUTO) 1.1 (0.2-0.8); MONOCYTES % 8.6 % (4.4-11.3); NEUTROPHILS # (AUTO) 9.7 (2.1-6.9); NEUTROPHILS % 76.6 % (38.7-80.0); PLATELET COUNT 522 x10e3/uL (140-360); RED BLOOD COUNT 3.16 x10e6/uL (3.6-5.1); RED CELL DISTRIBUTION WIDTH 15.2 % (11.7-14.4)
[2018-08-04 05:22] LABS: ANION GAP 23.2 mmol/L (8-16); CALCIUM 9.9 mg/dL (8.4-10.2); CREATININE, SERUM 6.03 mg/dL (0.57-1.11); MAGNESIUM 2.1 MG/DL (1.3-2.1); PHOSPHORUS 5.1 MG/DL (2.3-4.7); POTASSIUM 3.2 mmol/L (3.5-5.1)
[2018-08-04] MEDS: INSULIN LISPRO 100 UNIT/1 ML 3ML VIAL SQ SCH ×4 (05:42→18:24)
[2018-08-04] MEDS: ASPIRIN 325 MG TAB EC PO SCH (07:50)
[2018-08-04] MEDS: FERROUS SULFATE 325 MG TAB PO SCH ×2 (07:50→15:30)
[2018-08-04] MEDS: ISOSORBIDE MONONITRATE 30 MG TAB CR PO SCH (07:51)
[2018-08-04] MEDS: FAMOTIDINE 20 MG/2 ML VIAL IV SCH (08:07)
[2018-08-04] MEDS: NYSTATIN 15 GM POWDER UD BTL TOP SCH (08:07)
[2018-08-04] MEDS: CEFAZOLIN SOD 2 GM/D5W 50ML 50 ML IV SCH (08:07)
[2018-08-04] MEDS: EPOETIN ALFA 10000 UNIT/ML VIAL SC SCH (08:07)
[2018-08-04] MEDS ORDERED: EPOETIN ALFA 10000 UNIT/ML VIAL SC SCH (09:00)
[2018-08-04] MEDS: MIDODRINE 2.5 MG TAB PO SCH ×2 (12:00→16:00)
[2018-08-04] MEDS: HYDROCORTISONE SOD SUCCINATE 100 MG VIAL IV SCH ×2 (13:19→18:22)
[2018-08-05] VITALS (19 sets, daily range): BP systolic 73–124; BP diastolic 42–77
[2018-08-05] MEDS: NOREPINEPHRINE INJ 4MG/4ML 8 MG in DEXTROSE 5% 250ML 250 ML IV SCH ×2 (00:13→19:40)
[2018-08-05] MEDS: INSULIN LISPRO 100 UNIT/1 ML 3ML VIAL SQ SCH ×6 (00:15→23:50)
[2018-08-05] MEDS: HYDROCORTISONE SOD SUCCINATE 100 MG VIAL IV SCH ×3 (02:29→17:16)
[2018-08-05 05:18] LABS: BASOPHILS % 0.3 % (0.0-1.0); EOSINOPHILS % 0.2 % (0.0-6.0); HEMATOCRIT 36.4 % (34.2-44.1); HEMOGLOBIN 10.7 g/dL (12.0-16.0); LYMPHOCYTES # (AUTO) 0.9 (1.0-3.2); LYMPHOCYTES % 7.9 % (18.0-39.1); MEAN CORPUSCULAR HEMOGLOBIN 30.7 pg (28-32); MEAN CORPUSCULAR HGB CONC 29.4 g/dL (31-35); MEAN CORPUSCULAR VOLUME 104.6 fL (81-99); MONOCYTES # (AUTO) 0.6 (0.2-0.8); MONOCYTES % 5.3 % (4.4-11.3); NEUTROPHILS # (AUTO) 9.4 (2.1-6.9); NEUTROPHILS % 85.5 % (38.7-80.0); PLATELET COUNT 616 x10e3/uL (140-360); RED BLOOD COUNT 3.48 x10e6/uL (3.6-5.1); RED CELL DISTRIBUTION WIDTH 15.3 % (11.7-14.4)
[2018-08-05 05:40] LABS: ANION GAP 21.6 mmol/L (8-16); CALCIUM 10.9 mg/dL (8.4-10.2); CREATININE, SERUM 8.01 mg/dL (0.57-1.11); MAGNESIUM 2.3 MG/DL (1.3-2.1); POTASSIUM 3.6 mmol/L (3.5-5.1)
[2018-08-05] MEDS: FERROUS SULFATE 325 MG TAB PO SCH ×2 (07:42→12:13)
[2018-08-05] MEDS: ISOSORBIDE MONONITRATE 30 MG TAB CR PO SCH (07:43)
[2018-08-05] MEDS: ASPIRIN 325 MG TAB EC PO SCH (07:43)
[2018-08-05] MEDS: MIDODRINE 2.5 MG TAB PO SCH ×2 (07:43→12:00)
--- NOTE | 2018-08-05 08:30 | NUR ---
ST NOTE: Attempted MBS, pt having dialysis, must push MBS until after dialysis completed, will check for readiness later today, fatigue may be a factor.
[2018-08-05] MEDS: CEFAZOLIN SOD 2 GM/D5W 50ML 50 ML IV SCH (12:13)
[2018-08-05] MEDS: FAMOTIDINE 20 MG/2 ML VIAL IV SCH (12:13)
--- NOTE | 2018-08-05 12:15 | NUR ---
Nutrition Intervention Note RD Recommendation(s) for Physician: - If safe for PO, recommend diet per [employer] with Renal restrictions. - If pt not safe for PO, recommend TF of Vital AF at 10 ml/hr, advance as tolerated to goal rate of 40 ml/hr (to provide 1152 kcal and 72 gm protein per day). Peptide based formula appropriate post extubation due to continued pressor requirements. - Water flushes and fluid management per MD. Plan of Care: RD following, monitoring for tolerance and adequacy Nutrition reason for involvement: Follow up RD Assessment 08/05: Pt seen for follow up, discussed during am rounds- plan for MBSS today, pt failed BSE. Pt extubated 08/02, currently NPO pending MBSS results- planned for today after HD tx. Pt continues on 2 pressors, Levo at 4 mcg/min and Vaso at 2.4 units/hr. Pt sleeping on HD at time of visit. POC reviewed with RN. 07/31: Follow up: Pt remains intubated and sedated. Pt has been weened off of vasopressin, but is still on levo (2mcg/min) per nurse. Per nurse: doctors will not try to extubate until pt is off of all pressors. Pt was ordered Nepro at 40 ml/hr (which is currently on hold and will be started at 20 ml/hr per nurse). Spoke with nurse about new formula recommendation, since pt is still intubated and on pressor support- above recommendations are appropriate. Nurse reported she will change TF. Will continue to monitor. 07/28: Pt remains intubated and sedated. Pt currently high dose pressors of Levophed at 25 mcg/min and Vasopressin at 1.8 ml/hr. Pt on TF of Nepro at 40 ml/hr and receiving HD tx at time of visit. No family at bedside at time of visit. POC and rec's reviewed with RN on unit. Initial encounter with patient. Pt with a change of status on 07/24. She became unresponsive , a rapid response was called and she is now orally intubated and sedated. Orogastric tube in place on suction at time of visit. Unable to obtain a nutrition Hx from Pt. Pt is well known at [facility]. Overweight/obesity, Principal Problems/Diagnoses: Chest Pain PMH: ESRD, diastolic heart failure, HTN, Hyperlipidemia IVF: Levo at 4 mcg/min, Vaso at 2.4 units/hr GI: LBM 08/03 Skin: R knee wound Labs: 08/05: Na 134, K 3.6, BUN 46, Cr 8.01, Gluc 219 07/31: Cl 96, BUN 33. Creat 6.28, Gluc: 216 07/28: Na 136, K 4.9, BUN 37, Cr 6.07, Gluc 190 Meds: levophed, vasopressin, lispro, hydrocortisone, famotidine, feosol, zofran Malnutrition Evaluation (07/25/2018) The patient does not meet criteria for a specified degree of malnutrition at this time. Will re-evaluate at follow-up as appropriate. Diet Education Needs Assessment: Diet education not indicated. Ht:61 Wt:329 lbs BMI:62.1kg/m2 IBW:105lbs Estimated Nutritional Needs: 2838-4984 kcal (22-25 kcal/kg/IBW) 57-72 gm protein (1.2-1.5 g/kg/IBW)- HD Nutrition Prescription (Diet Order): NPO Food Allergies: No known food allergies Diet Adequacy: Not meeting calorie needs, Not meeting protein needs- currently NPO for MBSS Nutrition Care Level: Mod Nutrition Diagnosis: Swallowing difficulty related to acute illness as evidenced by respiratory failure/oral intubation Goal:Patient will meet 75-100% of estimated needs by follow up Progress: Progressing Interventions: Modify formula/solution, Composition, Rate, Route, Modified diet, Supplement, Prescription medications Monitoring/Evaluation: Total energy intake, Total protein intake, Formula/Solution, Modified diet, Supplement, Prescription medication, Weight change Signed: Leanna Bergman RD, LD, [facility]
[2018-08-05] MEDS ORDERED: CYCLOPENTOLATE HCL 1% OPTH SOLN 2ML BTL ONE (13:48)
--- NOTE | 2018-08-05 14:52 | NUR ---
DC PLAN: DISCUSSED PT IN MDR. CURRENTLY RECEIVING HD. LEVOPHED INFUSING, BIPAP. LACE SCORE OF 13. CM REQUESTED LTAC EVAL.
--- NOTE | 2018-08-05 15:13 | Diagnostic Imaging Report ---
EXAM: Modified barium swallow with Speech Pathologist INDICATION: ^aspiration precaution ^[id number] ^1200 COMPARISON: None available. RADIATION DOSE: Fluoroscopy Time: 2.7 min Dose (Kerma) Area Product: 2.22 Gycm2 Air Kerma (AK) value has been reviewed. It is below the limits set by the Radiation Protocol Committee (RPC) committee. FINDINGS: See impression IMPRESSION: Laryngeal penetration with thin, nectar thick, and puree consistencies. Silent aspiration with thin, nectar thick, and puree consistencies. Please refer to speech pathology report for full details and dietary recommendations. Signed by: Dr. Rebel Bagley M.D. on 08/05/2018 3:09 PM
[2018-08-05] MEDS ORDERED: ALBUMIN 25% 12.5GM 0.25 GM/ML BTL IV ONE (15:45)
[2018-08-05] MEDS: MIDODRINE HCL 5 MG TABLET PO SCH (16:00)
--- NOTE | 2018-08-05 18:22 | NUR ---
multiple attempts to insert ngt unsuccessful at this time.
[2018-08-05] MEDS: VASOPRESSIN 100 UNIT in DEXTROSE 5% 100ML 100 ML IV PRN ×3 (19:23→21:14)
[2018-08-06] VITALS (27 sets, daily range): BP systolic 77–126; BP diastolic 49–94
[2018-08-06] MEDS: HYDROCORTISONE SOD SUCCINATE 100 MG VIAL IV SCH ×3 (02:23→17:17)
[2018-08-06] MEDS: INSULIN LISPRO 100 UNIT/1 ML 3ML VIAL SQ SCH ×3 (05:44→18:09)
[2018-08-06] MEDS: EPOETIN ALFA 10000 UNIT/ML VIAL SC SCH (08:42)
[2018-08-06] MEDS: CEFAZOLIN SOD 2 GM/D5W 50ML 50 ML IV SCH (08:42)
[2018-08-06] MEDS: FAMOTIDINE 20 MG/2 ML VIAL IV SCH (08:42)
[2018-08-06] MEDS: ISOSORBIDE MONONITRATE 30 MG TAB CR PO SCH (09:00)
--- NOTE | 2018-08-06 09:06 | Diagnostic Imaging Report ---
Exam: Abdomen film; one view dated 08/06/2018 History: Confirm placement of Dobbhoff tube Comparison: None available Findings: Exam is suboptimal. Abdominal tube has been injected with contrast material. Opacification of the stomach is noted. Impression: Dobbhoff extends below the diaphragm and has been injected with contrast material. Signed by: Dr. Jose Wells DO on 08/06/2018 9:02 AM
[2018-08-06] MEDS: ASPIRIN 325 MG TAB EC PO SCH (10:04)
[2018-08-06] MEDS: FERROUS SULFATE 325 MG TAB PO SCH ×2 (10:04→17:17)
[2018-08-06] MEDS: MIDODRINE HCL 5 MG TABLET PO SCH ×3 (10:04→17:17)
[2018-08-06] MEDS ORDERED: BUSPIRONE HCL 10 MG TABLET PO ONE (14:15)
[2018-08-06] MEDS: ACETAMINOPHEN 325 MG/10 ML UDC NG PRN ×2 (15:16→20:28)
[2018-08-06] MEDS: BUPROPION HCL 75 MG TAB PO SCH (15:57)
[2018-08-06] MEDS: NOREPINEPHRINE INJ 4MG/4ML 8 MG in DEXTROSE 5% 250ML 250 ML IV SCH (18:30)
[2018-08-06] MEDS: BUSPIRONE HCL 5 MG TAB PO PRN (20:27)
--- NOTE | 2018-08-06 20:57 | Consultation ---
DATE OF CONSULTATION: 08/06/2018 Psychiatric Consultation. REASON FOR CONSULTATION: To evaluate the patient's depression. HISTORY OF PRESENT ILLNESS: The patient is a 42-year-old female admitted to the hospital with chest pain and end-stage renal disease. Psychiatric consultation is called to evaluate the patient's mood. As per the medical record, the patient has history of sleep apnea and end-stage renal disease, presented to the ER for chest pain while she was having dialysis. Other history includes obesity, hyperlipidemia, hypertension, chronic diastolic heart failure, and depression. Upon evaluation today, the patient is found to be in the room in the ICU. Her family members in the room. She agrees that all the family members should be present during the assessment. The patient is alert, awake, and oriented to situation. The patient admits to making statements that she wanted to get up. The patient states she is depressed and anxious due to her health. She feels that life at times is not worth living. She becomes tearful. She denies any suicidal ideation or homicidal ideation. The patient reports poor sleep. She is currently on NG tube. The patient denies any hallucination at this time. As per nursing staff, the patient apparently told that she wanted to . She had been combative and agitated. PAST PSYCHIATRIC HISTORY: The patient reports history of depression and anxiety for many years. She sees at [facility]. She denies past suicide attempts. She denies alcohol or drug use. FAMILY HISTORY: The patient states her family history has bipolar depression and schizophrenia. SOCIAL HISTORY: She states she lives with her mom. MENTAL STATUS EXAM: The patient is a middle-aged female. She is obese, alert, awake, and oriented to situation. Affect is congruent with mood. Psychomotor status is anxious. Her mood is depressed and anxious. She denies any suicidal or homicidal ideation. She admits to having passive wish at times. No paranoia elicited. Denies any hallucination. Thought process is concrete. Insight and judgment are fair. Memory appears to be intact. CURRENT MEDICATIONS: 1. Insulin. 2. Ferrous sulfate. 3. Aspirin. 4. Hydrocortisone. 5. Epoetin Phong. 6. Ceftriaxone/dextrose. 7. Famotidine. 8. Vasopressin. 9. Tylenol. 10. Guaifenesin. 11. Isosorbide mononitrate. 12. Sodium chloride. 13. Albumin. 14. Ondansetron. 15. Nitroglycerin. CURRENT LABS: WBC 11.02, RBC 3.48, hemoglobin 10.7, hematocrit 36.4, and platelets 616. Chemistry; sodium is 134, potassium 3.6, chloride 92, CO2 24, BUN 46, and creatinine 8.01. AST 46 and ALT 20. ASSESSMENT: 1. Major depressive disorder, recurrent, moderate to severe. 2. Generalized anxiety disorder. PLAN: 1. Add BuSpar 10 mg p.o. three times a day as needed, one dose now. 2. Add Wellbutrin 75 mg p.o. b.i.d. 3. Monitor for mood. 4. Supportive therapy. Thank you for this consultation. Dictated by Lashay Bustillos PA-C Alek Marie MD QTV/MODL /[id number]
[2018-08-07] VITALS (23 sets, daily range): BP systolic 80–132; BP diastolic 51–82
[2018-08-07] MEDS: INSULIN LISPRO 100 UNIT/1 ML 3ML VIAL SQ SCH ×4 (00:26→18:46)
[2018-08-07] MEDS: HYDROCORTISONE SOD SUCCINATE 100 MG VIAL IV SCH ×3 (03:21→17:28)
[2018-08-07 05:39] LABS: BASOPHILS % 0.3 % (0.0-1.0); EOSINOPHILS % 0.4 % (0.0-6.0); HEMATOCRIT 35.8 % (34.2-44.1); HEMOGLOBIN 10.8 g/dL (12.0-16.0); LYMPHOCYTES # (AUTO) 1.5 (1.0-3.2); LYMPHOCYTES % 15.4 % (18.0-39.1); MEAN CORPUSCULAR HEMOGLOBIN 31.8 pg (28-32); MEAN CORPUSCULAR HGB CONC 30.2 g/dL (31-35); MEAN CORPUSCULAR VOLUME 105.3 fL (81-99); MONOCYTES % 9.9 % (4.4-11.3); NEUTROPHILS # (AUTO) 7.2 (2.1-6.9); NEUTROPHILS % 73.3 % (38.7-80.0); PLATELET COUNT 607 x10e3/uL (140-360); RED CELL DISTRIBUTION WIDTH 15.4 % (11.7-14.4)
[2018-08-07 05:52] LABS: ANION GAP 25.3 mmol/L (8-16); CALCIUM 10.8 mg/dL (8.4-10.2); MAGNESIUM 2.6 MG/DL (1.3-2.1); PHOSPHORUS 7.4 MG/DL (2.3-4.7); POTASSIUM 3.3 mmol/L (3.5-5.1)
[2018-08-07 06:13] LABS: CREATININE, SERUM 7.75 mg/dL (0.57-1.11)
--- NOTE | 2018-08-07 07:10 | NUR ---
Patient received asleep and resting comfortably. Respirations are even and unlabored.
--- NOTE | 2018-08-07 07:47 | NUR ---
Dr. Perez called with lab results and orders received to call [facility] to perform dialysis on patient today. I notified [facility] of orders from Dr. Perez and I spoke to
[2018-08-07] MEDS: FERROUS SULFATE 325 MG TAB PO SCH ×2 (08:33→17:25)
[2018-08-07] MEDS: MIDODRINE HCL 5 MG TABLET PO SCH ×3 (08:33→17:25)
[2018-08-07] MEDS: ASPIRIN 325 MG TAB EC PO SCH (08:34)
[2018-08-07] MEDS: FAMOTIDINE 20 MG/2 ML VIAL IV SCH (08:34)
[2018-08-07] MEDS: BUPROPION HCL 75 MG TAB PO SCH ×2 (08:34→17:25)
[2018-08-07] MEDS: ISOSORBIDE MONONITRATE 30 MG TAB CR PO SCH (09:00)
[2018-08-07] MEDS: CEFAZOLIN SOD 2 GM/D5W 50ML 50 ML IV SCH (09:00)
[2018-08-07] MEDS: BUSPIRONE HCL 5 MG TAB PO PRN ×2 (10:04→17:40)
[2018-08-07] MEDS: ACETAMINOPHEN 325 MG/10 ML UDC NG PRN ×2 (10:04→17:40)
--- NOTE | 2018-08-07 11:30 | NUR ---
ST Note: Pt receiving HD. Will return later for dysphagia therapy time permitting.
--- NOTE | 2018-08-07 19:08 | Progress Note ---
DATE: Cardiology Progress Note SUBJECTIVE: The patient is undergoing hemodialysis, still on pressure support, mildly confused. No chest pain. Shortness of breath is at baseline. OBJECTIVE: VITAL SIGNS: Temperature is 97.7, heart rate is 62, respirations are 16, blood pressure is 129/81, and oxygen saturation 100% on 4 L nasal cannula. GENERAL: Well appearing, morbidly obese woman, lying comfortably in bed, undergoing hemodialysis. CARDIOVASCULAR: Regular rate and rhythm. No murmurs. LUNGS: Diminished breath sounds at bases. ABDOMEN: Soft, obese, and nontender. EXTREMITIES: Peripheral edema present. CARDIOVASCULAR MEDICATIONS: Reviewed. She remains on low dose of vasopressin and norepinephrine. LABORATORY DATA: Reviewed. Hemoglobin 10.8, creatinine 7.75, and potassium 3.3. IMPRESSION: 1. Septic shock. 2. Hypercapnic respiratory failure, status post mechanical ventilation. 3. Chest pain. 4. Hypertension. 5. Hyperlipidemia. 6. End-stage renal disease. 7. Chronic diastolic heart failure. 8. Morbid obesity. 9. Obstructive sleep apnea. RECOMMENDATIONS: Continue to remove volume through hemodialysis. Wean vasopressors as tolerated. Continue all other infectious treatments per primary team for her acute illness. The patient likely will need coronary angiography once she is medically stable given that she has a positive stress test in the past. DO MATT Spivey/MODL /[id number]
[2018-08-08] VITALS (27 sets, daily range): BP systolic 72–122; BP diastolic 50–102
[2018-08-08] MEDS: INSULIN LISPRO 100 UNIT/1 ML 3ML VIAL SQ SCH ×4 (00:21→17:05)
[2018-08-08] MEDS: HYDROCORTISONE SOD SUCCINATE 100 MG VIAL IV SCH ×3 (02:29→17:04)
[2018-08-08] MEDS: ASPIRIN 325 MG TAB EC PO SCH (07:29)
[2018-08-08] MEDS: ISOSORBIDE MONONITRATE 30 MG TAB CR PO SCH (07:49)
[2018-08-08] MEDS: FERROUS SULFATE 325 MG TAB PO SCH ×2 (08:08→16:17)
[2018-08-08] MEDS: MIDODRINE HCL 5 MG TABLET PO SCH ×3 (08:08→16:17)
[2018-08-08] MEDS: FAMOTIDINE 20 MG/2 ML VIAL IV SCH (08:08)
[2018-08-08] MEDS: EPOETIN ALFA 10000 UNIT/ML VIAL SC SCH (08:08)
[2018-08-08] MEDS: CEFAZOLIN SOD 2 GM/D5W 50ML 50 ML IV SCH (08:08)
[2018-08-08] MEDS: BUPROPION HCL 75 MG TAB PO SCH ×2 (08:08→16:17)
--- NOTE | 2018-08-08 11:18 | NUR ---
called dr queen for bs [id number]
[2018-08-08] MEDS: INSULIN GLARGINE 100 UNITS/ML VIAL SQ SCH (11:29)
[2018-08-08] MEDS ORDERED: INSULIN LISPRO 100 UNIT/1 ML 3ML VIAL SQ NR (11:30)
--- NOTE | 2018-08-08 12:16 | NUR ---
Nutrition Intervention Note RD Recommendation(s) for Physician: increase Nepro to a goal of 40ml/hr Plan of Care: RD following, monitoring for tolerance and adequacy Nutrition reason for involvement: MD consult - Increase EN to goal rate RD Assessment 08/08: Visited Pt. Nepro at 10ml/hr and Consult received from MD regarding increasing kcals On Nepro at 10ml/hr currently via NGT. Pt extubated. 08/05: Pt seen for follow up, discussed during am rounds- plan for MBSS today, pt failed BSE. Pt extubated 08/02, currently NPO pending MBSS results- planned for today after HD tx. Pt continues on 2 pressors, Levo at 4 mcg/min and Vaso at 2.4 units/hr. Pt sleeping on HD at time of visit. POC reviewed with RN. 07/31: Follow up: Pt remains intubated and sedated. Pt has been weened off of vasopressin, but is still on levo (2mcg/min) per nurse. Per nurse: doctors will not try to extubate until pt is off of all pressors. Pt was ordered Nepro at 40 ml/hr (which is currently on hold and will be started at 20 ml/hr per nurse). Spoke with nurse about new formula recommendation, since pt is still intubated and on pressor support- above recommendations are appropriate. Nurse reported she will change TF. Will continue to monitor. 07/28: Pt remains intubated and sedated. Pt currently high dose pressors of Levophed at 25 mcg/min and Vasopressin at 1.8 ml/hr. Pt on TF of Nepro at 40 ml/hr and receiving HD tx at time of visit. No family at bedside at time of visit. POC and rec's reviewed with RN on unit. Initial encounter with patient. Pt with a change of status on 07/24. She became unresponsive , a rapid response was called and she is now orally intubated and sedated. Orogastric tube in place on suction at time of visit. Unable to obtain a nutrition Hx from Pt. Pt is well known at [facility]. Overweight/obesity, Principal Problems/Diagnoses: Chest Pain PMH: ESRD, diastolic heart failure, HTN, Hyperlipidemia IVF: Noreppinephrine, vasopressin GI: LBM 08/08 Skin: R knee wound Labs: 08/08 lab results reviewed 08/05: Na 134, K 3.6, BUN 46, Cr 8.01, Gluc 219 07/31: Cl 96, BUN 33. Creat 6.28, Gluc: 216 07/28: Na 136, K 4.9, BUN 37, Cr 6.07, Gluc 190 Meds: vasopressin, norepinephrine, lispro, hydrocortisone, famotidine, feosol, zofran Malnutrition Evaluation (07/25/2018) The patient does not meet criteria for a specified degree of malnutrition at this time. Will re-evaluate at follow-up as appropriate. Diet Education Needs Assessment: Diet education not indicated. Ht:61 Wt:301 lbs BMI:59.6kg/m2 IBW:105lbs Estimated Nutritional Needs: 2347-2575 kcal (22-25 kcal/kg/IBW) 57-72 gm protein (1.2-1.5 g/kg/IBW)- HD Nutrition Prescription (Diet Order): NPO Food Allergies: No known food allergies Diet Adequacy: Not meeting calorie needs, Not meeting protein needs- currently NPO for MBSS Nutrition Care Level: Mod Nutrition Diagnosis: Swallowing difficulty related to acute illness as evidenced by respiratory failure/oral intubation Goal:Patient will meet 75-100% of estimated needs by follow up Progress: Progressing Interventions: Modify formula/solution, Composition, Rate, Route, Modified diet, Supplement, Prescription medications Monitoring/Evaluation: Total energy intake, Total protein intake, Formula/Solution, Modified diet, Supplement, Prescription medication, Weight change Abebe Cruz RD, LD, CNSC
[2018-08-08 12:28] LABS: % IRON SATURATION 28 % (15-50); IRON 72 ug/dL (50-170); TOTAL IRON BINDING CAPACITY 256 ug/dL (261-478); TRANSFERRIN 183 mg/dL (180-382)
--- NOTE | 2018-08-08 13:07 | Progress Note ---
DATE: Cardiology Progress Note SUBJECTIVE: The patient complains of being tired, lying in the bed, and some shortness of breath. Denies any chest pain or palpitations. OBJECTIVE: VITAL SIGNS: Temperature 97.5, pulse 68, respiratory rate 20, blood pressure 96/67, oxygen saturation on 4 L nasal cannula. CARDIAC MEDICATIONS: Vasopressin . PHYSICAL EXAMINATION: GENERAL: Alert and oriented x3, resting comfortably in bed, does not appear to be in any acute distress. LUNGS: Diminished breath sounds, anterior lower lobes, otherwise clear to auscultation. CARDIOVASCULAR: Regular rate and rhythm. Normal S1, S2. No gallops, no murmurs. ABDOMEN: Rounded, soft, nontender. EXTREMITIES: Lower extremities, no edema. 2+ pedal pulses. TELEMETRY: Normal sinus rhythm. IMPRESSION: 1. Septic shock. 2. Hypercapnic respiratory failure, status post mechanical ventilation. 3. Chest pain. 4. . 5. Hyperlipidemia. 6. End-stage renal disease. 7. Chronic diastolic heart failure. 8. Morbid obesity. 9. Obstructive sleep apnea. RECOMMENDATIONS: Continue to remove volume through dialysis. Wean off vasopressors as tolerated. Initiate midodrine. Continue antibiotics per Infectious Disease. This patient will likely need coronary angiogram or ischemic evaluation once medically stable. She has had a positive stress test in the past. Dictated by Aimee Estrada NP MD LUL MontelongoV/FÉLIXL /[id number]
[2018-08-08] MEDS: BUSPIRONE HCL 5 MG TAB PO PRN (16:16)
[2018-08-08] MEDS: NOREPINEPHRINE INJ 4MG/4ML 8 MG in DEXTROSE 5% 250ML 250 ML IV SCH ×2 (16:23→20:25)
[2018-08-08] MEDS: ONDANSETRON HCL 4 MG ORAL DISINTEGRATING TAB PO PRN (19:29)
[2018-08-08] MEDS ORDERED: PROMETHAZINE HCL 25 MG TAB PO PRN (20:45)
[2018-08-08] MEDS ORDERED: BISACODYL 10 MG SUPP PR PRN (22:15)
[2018-08-08] MEDS ORDERED: MINERAL OIL 132 ML BTL PR PRN (22:15)
--- NOTE | 2018-08-08 22:37 | Diagnostic Imaging Report ---
EXAM: Abdomen 2 radiographs INDICATION: ^nausea/ vomiting ^[id number] ^[id number] COMPARISON: Abdominal x-ray dated 08/06/2018 FINDINGS: Limited by body habitus. Again seen Dobbhoff tube in place with tip projecting over the gastric cardia. Small amount of contrast surrounding the proximal Dobbhoff tube and within colon. Nonobstructive bowel gas pattern. Right femoral line in place. No acute osseous abnormality. Lung bases are clear. IMPRESSION: 1. Nonobstructive bowel gas pattern. Signed by: Dr. Anthony Thornton MD on 08/08/2018 10:34 PM
[2018-08-08] MEDS: CYANOCOBALAMIN INJ 1,000 MCG/ML VIAL IM SCH (23:00)
[2018-08-09] VITALS (25 sets, daily range): BP systolic 72–129; BP diastolic 38–86
[2018-08-09] MEDS: INSULIN LISPRO 100 UNIT/1 ML 3ML VIAL SQ SCH ×4 (00:07→18:00)
[2018-08-09] MEDS: HYDROCORTISONE SOD SUCCINATE 100 MG VIAL IV SCH (02:30)
[2018-08-09] MEDS: PROMETHAZINE 12.5MG/ NACL 0.9% 12.5 MG/50 ML BAG IV PRN ×2 (02:59→22:43)
[2018-08-09 03:20] LABS: FOLATE 10.1 ng/mL (7.0-15.4)
[2018-08-09] MEDS: NOREPINEPHRINE INJ 4MG/4ML 8 MG in DEXTROSE 5% 250ML 250 ML IV SCH ×3 (03:30→06:52)
[2018-08-09 05:51] LABS: BASOPHILS # (AUTO) 0.1 (0.0-0.1); BASOPHILS % 0.4 % (0.0-1.0); EOSINOPHILS # (AUTO) 0.1 (0.0-0.4); EOSINOPHILS % 0.6 % (0.0-6.0); HEMATOCRIT 41.1 % (34.2-44.1); LYMPHOCYTES # (AUTO) 1.5 (1.0-3.2); LYMPHOCYTES % 9.5 % (18.0-39.1); MEAN CORPUSCULAR HEMOGLOBIN 30.9 pg (28-32); MEAN CORPUSCULAR HGB CONC 29.2 g/dL (31-35); MEAN CORPUSCULAR VOLUME 105.9 fL (81-99); MONOCYTES # (AUTO) 1.2 (0.2-0.8); MONOCYTES % 7.8 % (4.4-11.3); NEUTROPHILS # (AUTO) 12.5 (2.1-6.9); NEUTROPHILS % 80.5 % (38.7-80.0); PLATELET COUNT 666 x10e3/uL (140-360); RED BLOOD COUNT 3.88 x10e6/uL (3.6-5.1); RED CELL DISTRIBUTION WIDTH 15.9 % (11.7-14.4)
--- NOTE | 2018-08-09 06:16 | Diagnostic Imaging Report ---
EXAMINATION: CHEST SINGLE (PORTABLE) INDICATION: ^chf ^[id number] ^[id number] COMPARISON: 08/02/2018 FINDINGS: AP view TUBES and LINES: Partially visualized proximal portion of an enteric tube. LUNGS: Limited by body habitus, underpenetration, and low lung volumes. Mild central vascular congestion. PLEURA: No significant pleural effusion or pneumothorax. HEART AND MEDIASTINUM: The cardiomediastinal silhouette is enlarged. BONES AND SOFT TISSUES: No acute osseous lesion. Soft tissues are unremarkable. UPPER ABDOMEN: No free air under the diaphragm. IMPRESSION: Very limited study as above. Enlarged cardiomediastinal silhouette and mild central vascular congestion. Signed by: Dr. Anthony Thornton MD on 08/09/2018 6:13 AM
[2018-08-09 06:21] LABS: ANION GAP 30.7 mmol/L (8-16); CALCIUM 11.6 mg/dL (8.4-10.2); CREATININE, SERUM 8.68 mg/dL (0.57-1.11); POTASSIUM 3.7 mmol/L (3.5-5.1)
[2018-08-09] MEDS: VASOPRESSIN 100 UNIT in DEXTROSE 5% 100ML 100 ML IV PRN (06:54)
[2018-08-09] MEDS: MIDODRINE HCL 5 MG TABLET PO SCH ×3 (08:00→16:00)
[2018-08-09] MEDS: FERROUS SULFATE 325 MG TAB PO SCH ×2 (08:00→17:00)
[2018-08-09] MEDS: CYANOCOBALAMIN INJ 1,000 MCG/ML VIAL IM SCH (09:00)
[2018-08-09] MEDS: FAMOTIDINE 20 MG/2 ML VIAL IV SCH (09:00)
[2018-08-09] MEDS: ASPIRIN 325 MG TAB EC PO SCH (09:00)
[2018-08-09] MEDS: BUPROPION HCL 75 MG TAB PO SCH ×2 (09:00→17:00)
[2018-08-09] MEDS: INSULIN GLARGINE 100 UNITS/ML VIAL SQ SCH ×2 (09:00→22:14)
--- NOTE | 2018-08-09 09:47 | NUR ---
I SPOKE TO DR. STANLEY REGARDING LAB RESULTS AND NO NEW ORDERS RECEIVED.
[2018-08-09] MEDS: PIPERACILLIN/TAZO 2.25 GM 50 ML IV SCH ×2 (10:08→21:39)
--- NOTE | 2018-08-09 11:07 | NUR ---
Bedbath given and tolerated well. Patient is on her menstrual cycle and no blood clots noted. Patient had moderate amount of loose, runny stool. Wound care performed to right buttock area-stage 1.
[2018-08-09] MEDS ORDERED: HYDROCORTISONE SOD SUCCINATE 100 MG VIAL IV SCH (17:00)
[2018-08-09] MEDS ORDERED: PIPERACILLIN/TAZO 2.25 GM 50 ML IV SCH (17:00)
--- NOTE | 2018-08-09 18:42 | Progress Note ---
DATE: Cardiology Progress Note SUBJECTIVE: The patient is without any complaints this morning. She denies any chest pain. Denies any shortness of breath. Denies any palpitations, abdominal pain, fever, or chills. OBJECTIVE: VITAL SIGNS: Temperature 97.4, pulse 95, respiratory rate 21, blood pressure 96/59, oxygen saturation 100% on 2 L nasal cannula. CARDIOVASCULAR MEDICATIONS: LABORATORY DATA: WBC 15.5, hemoglobin 12.0, hematocrit 41.1, platelet 666. Sodium 137, potassium 3.7, BUN 65, creatinine 8.68, glucose 270, calcium 11.6. Telemetry, sinus rhythm. PHYSICAL EXAMINATION: GENERAL: Alert and oriented x3. Resting comfortably in bed. Does not appear to be in any acute distress. LUNGS: Diminished breath sounds anterior lower lobes otherwise clear to auscultation. No wheezing. No rhonchi or crackles. CARDIOVASCULAR: Regular rate and rhythm. Normal S1, S2. No gallops, no murmurs. ABDOMEN: Soft, nontender. LOWER EXTREMITIES: 2+ pedal pulses. No edema. IMPRESSION: 1. Septic shock. 2. Hypercapnic respiratory failure, status post mechanical ventilation, now on nasal cannula. 3. Chest pain. 4. Hypotension. 5. Hyperlipidemia. 6. End-stage renal disease. 7. Chronic diastolic heart failure. 8. Morbid obesity. 9. Obstructive sleep apnea. RECOMMENDATION: Continue volume management through dialysis. Continue to support with vasopressors and wean off as tolerated. Continue to give midodrine for blood pressure. Continue antimicrobial therapy per Infectious Disease. The patient is scheduled to get an abdominal CT scan today due to high volume residuals. This patient will likely need a coronary angiogram or ischemic workup once medically stable. She has had an abnormal stress test in the past. Dictated by Aimee Estrada, JERE MD SINDI Montelongo/MATEUS /[id number]
--- NOTE | 2018-08-09 19:31 | Diagnostic Imaging Report ---
EXAM: CT Abdomen and Pelvis WITHOUT contrast INDICATION: ^abdominal pain,ileus-?vomiting ^[id number] ^1715 COMPARISON: CT dated 07/27/2018 TECHNIQUE: Abdomen and pelvis were scanned utilizing a multidetector helical scanner from the lung base to the pubic symphysis without administration of IV contrast. Absence of intravenous contrast decreases sensitivity for detection of focal lesions and vascular pathology. Coronal and sagittal reformations were obtained. Routine protocol was performed. IV CONTRAST: None ORAL CONTRAST: Administered. COMPLICATIONS: None RADIATION DOSE: Total DLP: 1329.13 mGy*cm Estimated effective dose: (DLP x 0.015 x size factor) mSv CTDIvol has been reviewed. It is below the limits set by the Radiation Protocol Committee (RPC). FINDINGS: LINES and TUBES: Nasogastric tube in place with tip terminating in gastric body. Left femoral central line with tip terminating in the left external iliac vein. LOWER THORAX: Unremarkable HEPATOBILIARY: Unenhanced liver is unremarkable. No biliary ductal dilation. GALLBLADDER: Surgically absent. SPLEEN: No splenomegaly. PANCREAS: No focal masses or ductal dilatation. ADRENALS: No adrenal nodules KIDNEYS/URETERS: No hydronephrosis. No contour deforming renal lesion. No stones. GI TRACT: No abnormal distention, wall thickening, or evidence of bowel obstruction. Scattered localizers evidence of diverticulitis. Retained barium within gastric fundus. Appendix is normal. PELVIC ORGANS/BLADDER: Unremarkable. LYMPH NODES: No lymphadenopathy. VESSELS: Unremarkable. PERITONEUM / RETROPERITONEUM: No free air or fluid. BONES: Unremarkable. L5-S1 degenerative changes. SOFT TISSUES: Multiple focal anterior abdominal wall subcutaneous densities, likely due to injections. Small supraumbilical fat-containing hernia. IMPRESSION: 1. No evidence of ileus or bowel obstruction. Signed by: Dr. Anthony Thornton MD on 08/09/2018 7:28 PM
[2018-08-09] MEDS: TRAZODONE HCL 50 MG TAB PO PRN (21:40)
[2018-08-10] VITALS (30 sets, daily range): BP systolic 63–153; BP diastolic 31–78
[2018-08-10] MEDS: INSULIN LISPRO 100 UNIT/1 ML 3ML VIAL SQ SCH ×5 (00:55→23:50)
[2018-08-10] MEDS: FAMOTIDINE 20 MG/2 ML VIAL IV SCH (07:49)
[2018-08-10] MEDS: PROMETHAZINE 12.5MG/ NACL 0.9% 12.5 MG/50 ML BAG IV PRN (07:49)
[2018-08-10] MEDS: MIDODRINE HCL 5 MG TABLET PO SCH ×3 (09:00→16:40)
[2018-08-10] MEDS: INSULIN GLARGINE 100 UNITS/ML VIAL SQ SCH ×2 (09:15→21:31)
--- NOTE | 2018-08-10 09:15 | NUR ---
SPOKE TO REGARDING NEW CONSULT. MD NOTIFIED OF NAUSEA AND VOMITING RECEIVED ORDERS
[2018-08-10] MEDS: ASPIRIN 325 MG TAB EC PO SCH (09:50)
[2018-08-10] MEDS: BUPROPION HCL 75 MG TAB PO SCH ×3 (09:50→17:30)
[2018-08-10] MEDS: CYANOCOBALAMIN INJ 1,000 MCG/ML VIAL IM SCH (09:50)
[2018-08-10] MEDS: PIPERACILLIN/TAZO 2.25 GM 50 ML IV SCH ×2 (09:55→21:27)
[2018-08-10] MEDS ORDERED: METOCLOPRAMIDE HCL 10 MG/2ML VIAL IV SCH (12:00)
--- NOTE | 2018-08-10 13:58 | NUR ---
CALLED TO NOTIFY WANTS PT ON TPN. STATES HE WILL TAKE CARE OF IT ON ROUNDING
[2018-08-10] MEDS: BUSPIRONE HCL 5 MG TAB PO PRN (14:40)
--- NOTE | 2018-08-10 14:40 | NUR ---
PT BECAME AGITATED AND RESTLESS DURING DIALYSIS . PT KICKING FEET AND REACHING FOR DIALYSIS FISTULA SITE, PT RESPONDING DELAYED UNABLE TO FOLLOW COMMANDS AND IS NOT MAKING SENSE. DR.KHAN COWAN RECEIVED ORDERS. WILL CONTINUE TO MONITOR CLOSELY
[2018-08-10] MEDS ORDERED: LORAZEPAM INJ 2 MG/ML VIAL ONE (15:11)
[2018-08-10 15:32] LABS: ABG HCO3 21 mmol/L (23-28); ABG PCO2 32 mmHg (41-51); ABG PH 7.42 (7.31-7.41); ABG PO2 421 mmHg (80-105)
--- NOTE | 2018-08-10 15:45 | NUR ---
Nutrition Intervention Note RD Recommendation(s) for Physician 08/10: TPN recommendation: -Consider initiating TPN: 150 grams of dextrose (30% 500 ml), 50 grams AA (10% 500 ml) ,25 gm/day of lipids to provide the pt with 935 kcal, 50 grams of prot (pt will be meeting 78% of minimum energy needs and 87% of her minimum protein needs) -Advance rate as tolerated per MD. -Monitor trend of electrolytes (phos, mg, K). -Check daily weights, labs, tolerance. Plan of Care: RD following, monitoring for tolerance and adequacy Nutrition reason for involvement: follow up RD Assessment 08/10 : Follow up: Discussed pt in AM rounds, pt has been extubated and is on bipap, pt still on pressors, per nurse goal is to wean pt off of vasopressin today-per EMR pt is currently not on vasopressin anymore, pt is still on 7.74 mls/hr of levophed. TF are on hold and will be d/c per nurse. Pt had gastric residuals of over 400 yesterday and N/V, MD wants to start TPN. Macronutrient recommendations are provided above. No TPN order has been ordered as of now. Recommend to increase rate when medically feasible, pending lab trends. If MD decides to re-initiate TF while pt is on pressors-please consult RD for appropriate rate and formula. Will continue to monitor. 08/08: Visited Pt. Nepro at 10ml/hr and Consult received from MD regarding increasing kcals On Nepro at 10ml/hr currently via NGT. Pt extubated. 08/05: Pt seen for follow up, discussed during am rounds- plan for MBSS today, pt failed BSE. Pt extubated 08/02, currently NPO pending MBSS results- planned for today after HD tx. Pt continues on 2 pressors, Levo at 4 mcg/min and Vaso at 2.4 units/hr. Pt sleeping on HD at time of visit. POC reviewed with RN. 07/31: Follow up: Pt remains intubated and sedated. Pt has been weened off of vasopressin, but is still on levo (2mcg/min) per nurse. Per nurse: doctors will not try to extubate until pt is off of all pressors. Pt was ordered Nepro at 40 ml/hr (which is currently on hold and will be started at 20 ml/hr per nurse). Spoke with nurse about new formula recommendation, since pt is still intubated and on pressor support- above recommendations are appropriate. Nurse reported she will change TF. Will continue to monitor. 07/28: Pt remains intubated and sedated. Pt currently high dose pressors of Levophed at 25 mcg/min and Vasopressin at 1.8 ml/hr. Pt on TF of Nepro at 40 ml/hr and receiving HD tx at time of visit. No family at bedside at time of visit. POC and rec's reviewed with RN on unit. Initial encounter with patient. Pt with a change of status on 07/24. She became unresponsive , a rapid response was called and she is now orally intubated and sedated. Orogastric tube in place on suction at time of visit. Unable to obtain a nutrition Hx from Pt. Pt is well known at [facility]. Overweight/obesity, Principal Problems/Diagnoses: Chest Pain PMH: ESRD, diastolic heart failure, HTN, Hyperlipidemia IVF: --- GI: Abd: soft, non-tender, stool- liquid, LBM: 08/10-per nurse Skin: Buttock wound Labs: 08/10: POC Gluc: 223 08/08 lab results reviewed 08/05: Na 134, K 3.6, BUN 46, Cr 8.01, Gluc 219 07/31: Cl 96, BUN 33. Creat 6.28, Gluc: 216 07/28: Na 136, K 4.9, BUN 37, Cr 6.07, Gluc 190 Meds: norepinephrine, lispro, reglan, lispro, abx, Vit B-12, pepcid, Malnutrition Evaluation (08/10/2018) The patient does not meet criteria for a specified degree of malnutrition at this time. Will re-evaluate at follow-up as appropriate. Diet Education Needs Assessment: Diet education not indicated. Ht:61 Wt:301 lbs BMI:59.6kg/m2 IBW:105lbs Estimated Nutritional Needs: 0949-7388 kcal (25-30 kcal/kg/IBW)-HD non ventilated 57-72 gm protein (1.2-1.5 g/kg/IBW)- HD Nutrition Prescription (Diet Order): Nepro at 10 ml/hr, per nurse pt is not on TF anymore Food Allergies: No known food allergies Diet Adequacy: Not meeting calorie needs, Not meeting protein needs- currently NPO for MBSS Nutrition Care Level: High Nutrition Diagnosis: Swallowing difficulty related to acute illness as evidenced by respiratory failure/oral intubation Goal:Patient will meet 75-100% of estimated needs by follow up Progress: Progressing Interventions: Modify formula/solution, Composition, Rate, Route, Modified diet, Supplement, Prescription medications Monitoring/Evaluation: Total energy intake, Total protein intake, Formula/Solution, Prescription medication, Weight change Signed: Abby Cruz RD, LD
--- NOTE | 2018-08-10 16:47 | NUR ---
[facility] EVAL TODAY CHOICE LETTER SIGNED BY PT DAUGHTER AT BEDSIDE [facility] WITH [facility] AREA NOTIFIED OF EVAL
--- NOTE | 2018-08-10 17:52 | Diagnostic Imaging Report ---
ADDENDUM #1 I agree with the preliminary findings of this report. Signed by: Dr. Rebel Garcia M.D. on 08/10/2018 7:03 PM ORIGINAL REPORT Exam: Head CT without contrast History: 42-year-old female with altered mental status Comparison studies: None available at this time Technique: Axial images were obtained from the skull base to the vertex. Coronal and sagittal reconstructions obtained from the axial data. Dose modulation, iterative reconstruction, and/or weight based adjustment of the mA/kV was utilized to reduce the radiation dose to as low as reasonably achievable. Findings: Scalp/skull: No abnormalities. No fractures, blastic or lytic lesions. Extra-axial spaces: No masses. No fluid collections. Brain sulci: Appropriate for age. Ventricles: Normal in size and configuration. No hydrocephalus. Parenchyma: No abnormal densities. No masses, hemorrhage, acute or chronic cortical vascular insults. Sellar/suprasellar region: No abnormalities Craniocervical junction: Patent foramen magnum. No Chiari one malformation. Incidental: Partially visualized nasal feeding tube IMPRESSION: No acute abnormalities. Preliminary report dictated by Dr. Zeina Orozco, Neuroradiology Fellow. A final report by the attending radiologist will follow. Signed by: Zeina Orozco MD on 08/10/2018 5:48 PM
--- NOTE | 2018-08-10 19:00 | NUR ---
Report received. Assumed care. Assessment done. See interventions. 3L NC with good sats. Levophed @ 25mcg/min or 46.9 ml/hr.
--- NOTE | 2018-08-10 20:03 | Progress Note ---
DATE: 08/10/2018 Psychiatric Progress Note SUBJECTIVE: The patient is evaluated and events noted. The patient is in the ICU. She is alert, awake, and oriented to situation. The patient had some decreased mentation earlier so she has being go to get a CT scan done. As per nursing staff, the patient at this time is not confused or agitated. She is calm, but she reports feeling very depressed and states that she wants to give up. She denies any suicidal ideation. She denies any hallucination. She denies any side effects from medication. ASSESSMENT: 1. Major depressive disorder, recurrent, moderate to severe. 2. Generalized anxiety disorder. PLAN: 1. Continue with BuSpar 10 mg p.o. three times a day as needed. 2. Increase Wellbutrin to 150 mg p.o. b.i.d. 3. Monitor for mood. 4. Supportive therapy. 5. Discussed with nursing staff. Dictated by Lashay Bustillos PA-C Alek Marie MD QTV/MODL /[id number]
--- NOTE | 2018-08-10 20:13 | Diagnostic Imaging Report ---
EXAMINATION: CHEST SINGLE (PORTABLE) INDICATION: Shortness of breath COMPARISON: Chest radiograph from 08/02/2018 and 08/09/2018 FINDINGS: AP view Limited due to underpenetration and body habitus exam. TUBES and LINES: Partially visualized feeding tube courses below the hemidiaphragm. LUNGS: Lungs are underinflated. There is no evidence of pneumonia or pulmonary edema. Central vascular congestion unchanged. PLEURA: No pleural effusion or pneumothorax. HEART AND MEDIASTINUM: Cardiomediastinal silhouette is mildly enlarged. BONES AND SOFT TISSUES: No acute osseous lesion. Soft tissues are unremarkable. UPPER ABDOMEN: No free air under the diaphragm. Hyperdense material projects over the gastric fundus, likely retained contrast. IMPRESSION: 1. No acute thoracic abnormality. 2. Mildly enlarged cardiomediastinal silhouette with central vascular congestion. Signed by: Zeina Orozco MD on 08/10/2018 8:10 PM
[2018-08-10] MEDS: NOREPINEPHRINE INJ 4MG/4ML 8 MG in DEXTROSE 5% 250ML 250 ML IV SCH (20:59)
[2018-08-10] MEDS ORDERED: FAMOTIDINE 20 MG/2 ML VIAL IV SCH (21:00)
--- NOTE | 2018-08-10 21:03 | Consultation ---
DATE OF CONSULTATION: REFERRING PHYSICIAN: Dr. Daniel. REASON FOR CONSULTATION: Nausea, vomiting, and dysphagia. HISTORY OF PRESENT ILLNESS: Ms. Correa is a pleasant 42-year-old woman who has a past medical history. She is currently in the ICU, undergoing dialysis and respiratory support. There was concern for aspiration pneumonia. She is pending repeat evaluation by Speech Therapy and she has failed previously. She is having significant nausea as well as vomiting. Apparently, she threw up all night. Tube feeds via the Dobhoff have been held. She is noted to have an elevated lipase and abdominal tenderness. PAST MEDICAL HISTORY: 1. End-stage renal disease. 2. Morbid obesity. 3. Obstructive sleep apnea. 4. CHF. 5. Depression. 6. Dyslipidemia. 7. Hypertension. SURGICAL HISTORY: Includes: 1. AV fistula. 2. cholecystectomy. MEDICATIONS: Reviewed, please see [facility] medication reconciliation form. ALLERGIES: REVIEWED, PLEASE SEE [facility] MEDICATION RECONCILIATION FORM. SOCIAL: No history of alcohol, tobacco, or illicit substances. FAMILY HISTORY: Positive for hypertension. REVIEW OF SYSTEMS: Is unable to obtain due to her respiratory status and mental status. PHYSICAL EXAMINATION: GENERAL: She is calm, lying in bed, obese, Dobhoff is in place without any feeds currently running. She is confused. She is on CPAP. She is anicteric. NECK: Supple. CARDIOVASCULAR : S1 and S2. Decreased breath sounds with some dependent crackles. ABDOMEN: Soft, appears to be tender centrally in the epigastric area without rebound, guarding or mass. EXTREMITIES: No clubbing, cyanosis. She does have a little bit of coolness to her bilateral feet. Currently on dialysis. PSYCH: Calm. NEUROLOGIC: Confused. The electronic health records were reviewed for laboratory and radiologic studies as well as history. ASSESSMENT AND PLAN: Nausea and vomiting. This may be related to pancreatitis. Her lipase is two times upper limit of normal at 196. The nausea and vomiting is consistent. Her CT scan did not show pancreatitis, however, it was done without contrast. Ischemic pancreatitis is a possibility. She does not seem to be getting any medications that would be classically associated with pancreatitis. Her triglycerides are not significantly elevated. At the current time, I would continue her on antiemetics, Zofran as well as Reglan. We will monitor lipase. We will hold tube feeds for now. We will follow up Speech Therapy recommendations. We will monitor her status closely. Thank you very much for asking us to see Ms. Correa. Any questions or concerns, please do not hesitate to contact me. Lamar Matta MD RLS/MODL /[id number]
[2018-08-10] MEDS: FAMOTIDINE 20 MG TAB PO SCH (21:27)
[2018-08-10] MEDS: HEPARIN SOD (PORCINE) 5,000 UNIT/ML VIAL SC SCH (21:29)
--- NOTE | 2018-08-10 22:58 | Consultation ---
DATE OF CONSULTATION: 08/10/2018 ADDITIONAL REFERRING PHYSICIAN: Dr. Sohail Perez. HISTORY OF PRESENT ILLNESS: The patient is a 42-year-old female with history of morbid obesity, obstructive sleep apnea, end-stage renal disease, was admitted to the hospital with chest pain. She is currently in the ICU. She apparently has been having persistent oozing of blood from her puncture site on her left arm AV fistula. She was dialyzed in the areas close to this today and the needle was removed, and there was no active bleeding at this time. The patient is awake, alert, but her blood pressure is mildly low. She is mildly hypotensive. She does not complain of any pain in the area. PAST MEDICAL HISTORY: Significant for end-stage renal disease, obesity, sleep apnea, hypertension, hyperlipidemia, congestive heart failure. PREVIOUS SURGERY: She has had dialysis access procedure. ALLERGIES: SHE HAS NO KNOWN ALLERGIES. MEDICATIONS: Listed in the chart. FAMILY HISTORY: The patient is noncontributory. SOCIAL HISTORY: The patient does not smoke cigarettes or drink alcohol. REVIEW OF SYSTEMS: She has not had any fever and no GI symptoms. PHYSICAL EXAMINATION: GENERAL: The patient is alert in the ICU, does not really answer questions. HEENT: There is no scleral icterus. NECK: Has no masses. LUNGS: Equal breath sounds, clear bilaterally. CARDIAC: Regular rhythm. ABDOMEN: Soft. No tenderness. EXTREMITIES: There is AV fistula in the left arm. The patient just finished dialysis and being decannulated, there had been bleeding, is not bleeding at this time. ASSESSMENT: A 42-year-old female, multiple medical problems with oozing from her left arm AV fistula site that now seems to stop. At this point, recommend keeping the dressing in place and observing. Hopefully, the bleeding will not recur. There are no findings that warrant any surgical intervention at this time. Thank you for asking me to see Ms. Correa. MD FRANKLIN Kenney/MATEUS /[id number]
[2018-08-11] VITALS (26 sets, daily range): BP systolic 63–132; BP diastolic 40–91
[2018-08-11 01:13] LABS: PROTHROMBIN TIME 68.8 seconds (11.9-14.5)
[2018-08-11 01:14] LABS: INR 8.15
[2018-08-11 01:15] LABS: PARTIAL THROMBOPLASTIN TIME 104.3 seconds (23.8-35.5)
--- NOTE | 2018-08-11 01:30 | NUR ---
PT/PTT results called to Dr. Zelaya. Orders given to hold ASA and Heparin.
[2018-08-11] MEDS: NOREPINEPHRINE INJ 4MG/4ML 8 MG in DEXTROSE 5% 250ML 250 ML IV SCH ×2 (02:59→23:38)
[2018-08-11 04:59] LABS: BASOPHILS # (AUTO) 0.1 (0.0-0.1); BASOPHILS % 0.6 % (0.0-1.0); EOSINOPHILS # (AUTO) 0.4 (0.0-0.4); EOSINOPHILS % 1.9 % (0.0-6.0); HEMATOCRIT 38.9 % (34.2-44.1); HEMOGLOBIN 11.4 g/dL (12.0-16.0); LYMPHOCYTES # (AUTO) 1.6 (1.0-3.2); LYMPHOCYTES % 8.3 % (18.0-39.1); MEAN CORPUSCULAR HEMOGLOBIN 31.1 pg (28-32); MEAN CORPUSCULAR HGB CONC 29.3 g/dL (31-35); MEAN CORPUSCULAR VOLUME 106.3 fL (81-99); MONOCYTES # (AUTO) 2.1 (0.2-0.8); MONOCYTES % 10.8 % (4.4-11.3); NEUTROPHILS # (AUTO) 14.8 (2.1-6.9); PLATELET COUNT 548 x10e3/uL (140-360); RED BLOOD COUNT 3.66 x10e6/uL (3.6-5.1); RED CELL DISTRIBUTION WIDTH 16.5 % (11.7-14.4)
[2018-08-11 05:30] LABS: ALBUMIN 4.3 g/dL (3.5-5.0); ALBUMIN/GLOBULIN RATIO 0.8 (0.8-2.0); ALKALINE PHOSPHATASE 123 IU/L (40-150); BLOOD UREA NITROGEN 54 mg/dL (7-26); BUN/CREATININE RATIO 6 (6-25); CALCIUM 10.8 mg/dL (8.4-10.2); CARBON DIOXIDE 22 mmol/L (22-29); CHLORIDE 86 mmol/L (98-107); EST GLOMERULAR FILTRATION RATE 5 ML/MIN (60-); GLUCOSE 364 mg/dL (74-118); SODIUM 132 mmol/L (136-145)
[2018-08-11 05:32] LABS: ALANINE AMINOTRANSFERASE < 6 IU/L (0-55)
[2018-08-11] MEDS: INSULIN LISPRO 100 UNIT/1 ML 3ML VIAL SQ SCH ×2 (05:35→11:50)
[2018-08-11 06:46] LABS: MAGNESIUM 2.3 MG/DL (1.3-2.1); PHOSPHORUS 7.7 MG/DL (2.3-4.7)
--- NOTE | 2018-08-11 07:02 | Diagnostic Imaging Report ---
Examination: Single AP view of the chest. COMPARISON: 08/10/2018 INDICATION: Shortness of breath DISCUSSION: Lines/tubes: Dobbhoff tube with the distal tip partially visualized overlying the left upper quadrant. Lungs: The lungs are well inflated and clear. No pneumonia or pulmonary edema. Pleura: No pleural effusion or pneumothorax. Heart and mediastinum: The heart and the mediastinum are unremarkable. Bones and soft tissues: No acute bony abnormalities. IMPRESSION: 1. No acute cardiopulmonary abnormalities. Signed by: Dr. Nick Tejada M.D. on 08/11/2018 6:58 AM
[2018-08-11] MEDS ORDERED: PHYTONADIONE 10 MG/ML AMP SQ ONE (08:15)
[2018-08-11 08:50] LABS: EOSINOPHILS % (MANUAL) 1 % (0-7); LYMPHOCYTES % (MANUAL) 11 % (19-48); MONOCYTES % (MANUAL) 10 % (3.4-9.0); NEUTROPHILS % (MANUAL) 74 % (40-74); NUCLEATED RED BLOOD CELLS 1; PLASMA CELLS %(MANUAL) 1
[2018-08-11 08:51] LABS: ANISOCYTOSIS S; PLATELET ESTIMATE MODERATELY INCREASED; RBC MORPHOLOGY COMMENT NORMAL
[2018-08-11 08:52] LABS: PLATELET MORPHOLOGY COMMENT FEW LARGE
[2018-08-11] MEDS: MIDODRINE HCL 5 MG TABLET PO SCH ×3 (09:00→16:22)
[2018-08-11] MEDS ORDERED: CENTRAL TPN FORMULA 1 BAG IV SCH (09:00)
[2018-08-11] MEDS ORDERED: INSULIN GLARGINE 100 UNITS/ML VIAL SQ SCH (09:00)
[2018-08-11] MEDS: CYANOCOBALAMIN 1,000 MCG TAB PO SCH (09:17)
[2018-08-11] MEDS: BUPROPION HCL 75 MG TAB PO SCH ×2 (09:17→16:22)
[2018-08-11] MEDS: PIPERACILLIN/TAZO 2.25 GM 50 ML IV SCH (09:27)
--- NOTE | 2018-08-11 10:50 | NUR ---
Pt receiving dialysis and unable to see pt, recommend repeat MBS on Friday08/12/18 as per recommendations from MBS last Friday. Handoff to TALYA Kaur
[2018-08-11] MEDS ORDERED: SODIUM CHLORIDE 0.9% 250ML 250 ML ONE (11:26)
--- NOTE | 2018-08-11 12:06 | NUR ---
NOTIFIED OF ELEVATED BS OF 429. RECEIVED ORDERS
[2018-08-11] MEDS: ACETAMINOPHEN 325 MG/10 ML UDC NG PRN (13:04)
[2018-08-11] MEDS ORDERED: DEXTROSE 50% SYRINGE 50 ML IV PRN (14:00)
--- NOTE | 2018-08-11 14:30 | NUR ---
PT BEING DIALYZED AT 1345 BP AT 114/90 PT BP AT 1400 63/40 PT ASYMPTOMATIC REMAINED HYPOTENSIVE, INCREASED LEVO NOTIFIED. 1420 BP AT 83/50 MD INFORMED THAT PATIENT BLOOD PRESSURE ALSO DROPPED YESTERDAY DURING DIALYSIS. WILL CONTINUE TO MONITOR CLOSELY
[2018-08-11 14:35] LABS: FREE T4 (FREE THYROXINE) 1.13 ng/dL (0.9-1.8); THYROID STIMULATING HORMONE 1.896 uIU/mL (0.350-4.940)
[2018-08-11] MEDS: INSULIN REGULAR, HUMAN 3ML VL 100 UNIT in SODIUM CHLORIDE 0.45% 100 ML 100 ML IV SCH ×2 (16:22)
--- NOTE | 2018-08-11 17:08 | Diagnostic Imaging Report ---
EXAM: US ABDOMEN COMPLETE INDICATION: Pain. COMPARISON: CT abdomen/pelvis without contrast 08/09/2018. TECHNIQUE: Transverse and longitudinal quintanilla scale and color doppler sonographic images of the abdomen were obtained. FINDINGS: Exam is limited secondary to the patient's body habitus, limited mobility, and overlying bowel gas. LIVER Measures 13.4 cm in the right midclavicular line. Normal echogenicity of the liver with normal contour, no masses. SPLEEN Measures 10.3 cm in maximum diameter. Normal echogenicity, no masses. GALLBLADDER Status post cholecystectomy. BILE DUCTS No intra nor extra-hepatic biliary dilation. Common bile duct is not visualized. PANCREAS: Obscured by overlying gas. RIGHT KIDNEY: 10.3 cm Echogenicity: Normal Collecting System: Mild right pelviectasis without caliectasis. Stones: None Cyst/Mass: None LEFT KIDNEY: 8.9 cm Echogenicity: Normal Collecting System: No hydronephrosis Stones: None Cyst/Mass: None VESSELS: Aorta: Visualized portions are within normal size limits Inferior Vena Cava: Visualized portions are normal Main Portal Vein: Obscured by overlying gas. FREE FLUID: None IMPRESSION: Substantially limited examination as above. Status post cholecystectomy. Pancreas and CBD are not visualized. Mild right pelviectasis without definite hydronephrosis. Signed by: Dr. Robin Brown MD on 08/11/2018 5:05 PM
--- NOTE | 2018-08-11 17:31 | Progress Note ---
DATE: 08/11/2018 Cardiology Progress Note SUBJECTIVE: Ms. Correa is lying in bed without any complaints. PHYSICAL EXAMINATION: VITAL SIGNS: Afebrile, heart rate 82, blood pressure is 84/70, currently on dialysis. HEART: Regular rhythm. No murmurs or gallops. LUNGS: Decreased breath sounds. ABDOMEN: Soft, distended. EXTREMITIES: 4+ edema. ASSESSMENT: 1. Hypotension due to septic shock. 2. Respiratory failure. 3. End-stage renal disease. 4. Chronic diastolic heart failure. RECOMMENDATIONS: Cardiac-kaye, the patient is stable. She will require return of fluid to help with her blood pressure. Echocardiogram done showed diastolic heart failure with normal LV systolic function. MD JIMMY Montelongo/MODL /[id number]
[2018-08-11] MEDS: INSULIN GLARGINE 100 UNITS/ML VIAL SQ SCH (21:15)
[2018-08-11] MEDS: FAMOTIDINE 20 MG TAB PO SCH (21:15)
--- NOTE | 2018-08-11 22:03 | Consultation ---
DATE OF CONSULTATION: Endocrine Consultation This is a patient of Dr. Cotto. Thank you very much referring this patient. HISTORY OF PRESENT ILLNESS: This is a 42-year-old lady, who was referred to me for evaluation of uncontrolled diabetes mellitus. She is a known diabetic for last several years and takes oral hypoglycemics at home. She came to the hospital with history of nausea and vomiting. She has been in the hospital for several days now. She also has history of end-stage renal disease, presently on hemodialysis, sepsis, obstructive pulmonary disease, congestive cardiac failure, and major depression. During this hospital stay, the patient has been started on the TPN and her blood sugars have been significantly elevated. The patient is on multiple medications including the antibiotics and on pressors at this time. PHYSICAL EXAMINATION: GENERAL: Today, the patient is alert and awake. She is moderately overweight. VITAL SIGNS: Her heart rate is around 78, her blood pressure is 114/70 mmHg. HEENT: Essentially unremarkable. Thyroid is palpable. Clinically, she is near euthyroid. CHEST: Bilateral vesicular breathing. No rales heard. CARDIOVASCULAR: First and second heart sounds. There is no 3rd third or fourth heart sound . EXTREMITIES: The patient has evidence of diabetic sensory neuropathy in both lower extremities and bilateral pedal edema. CLINICAL IMPRESSION: 1. Diabetes mellitus type 2, uncontrolled with complications, precipitated by TPN. 2. End-stage renal failure, on hemodialysis. 3. Hypotension. 4. Sepsis. 5. Pancreatitis. 6. Coronary artery disease. 7. Congestive cardiac failure. PLAN: The plan at this time is to increase the insulin in the TPN and also we might have to consider insulin drip if her blood sugar stays high all the time. Thank you for referring this patient. I will be following this patient with you. MD JESSICA Hayes/MATEUS /[id number]
[2018-08-12] VITALS (24 sets, daily range): BP systolic 88–125; BP diastolic 57–82
--- NOTE | 2018-08-12 01:49 | Consultation ---
DATE OF CONSULTATION: 08/11/2018 Neurology consult Note HISTORY OF PRESENT ILLNESS: Ms. Correa is a 42-year-old right-hand dominant woman with an extensive past medical history, admitted to [facility] on 07/21/2018, with an initial concern of chest pain. During her hospitalization, the patient was diagnosed with pneumonia, experienced respiratory failure requiring intubation, and is status post extubation. Due to her poorly controlled serum glucoses, the patient has required treatment with a continuous insulin infusion. Most recently, the patient has experienced intractable abdominal pain, nausea, and vomiting, necessitating the use of TPN. On the afternoon of 08/10/2018, while receiving hemodialysis, the patient became agitated and confused. Ms. Correa attempted to disconnect the dialysis machine from the AV fistula in her left forearm. Ms. Correa reports she became frustrated and angry during her hemodialysis session. Her frustration and anger are due to the duration of her hospitalization. Furthermore, the patient felt hemodialysis was "taking too long." During this time, Ms. Correa's nurse spoke to her. According to the patient's nurse, Ms. Correa seemed confused and slow to respond. While the patient experienced the above symptoms, her blood pressure was documented to be 93/56 mmHg. During this time, her blood pressure did drop as low as 70s/40s mmHg. Ms. Correa was tachycardic during this time as well with a pulse as high as 117 beats per minute. The head of geography, Dr. Perez was in the intensive care unit when the above- described symptoms occurred. He recommended discontinuation of hemodialysis. Over the next several minutes, as the patient's blood pressure improved, her symptoms gradually resolved. Ms. Correa does not report dizziness or lightheadedness preceding or associated with the above symptoms. She does not report chest pain or tightness, palpitations, shortness of breath, diaphoresis, or blurred vision. Ms. Correa does endorse nausea and vomiting, but this has been present throughout the hospitalization. There was no loss of consciousness at any time. Nor was the patient noted to be unresponsive. There is no witnessed seizure activity. Ms. Correa does not report experiencing similar symptoms previously. REVIEW OF SYSTEMS: Chest pain, abdominal pain, nausea, vomiting, confusion, anxiety, anger, frustration. Otherwise, a 12-point review of systems is negative. PAST MEDICAL HISTORY: 1. Diabetes mellitus type 2. 2. COPD. 3. End-stage renal disease on hemodialysis Tuesdays, , and Friday. 4. Depression-anxiety disorder. 5. Anemia of chronic disease. PAST SURGICAL HISTORY: Cholecystectomy, section x3, irrigation and debridement of multiple wounds, placement of left forearm AV fistula. PAST HOSPITALIZATIONS: Surgeries/procedures as listed, childbirth, numerous hospitalizations secondary to noncompliance with treatment. FAMILY MEDICAL HISTORY: Hypertension, hyperlipidemia, coronary artery disease in the patient's father with possible myocardial infarction or stroke. SOCIAL HISTORY: Ms. Correa is single. She is on disability. The patient endorses remote history of tobacco use, but quit smoking cigarettes several years ago. The patient does not report current or prior alcohol or recreational drug use. MEDICATIONS: Home medications: Tylenol #3, albuterol, Xanax, Wellbutrin, clonazepam, ferrous sulfate, isosorbide mononitrate, potassium chloride, Advair, omeprazole. Hospital medications: Tylenol Elixir, albumin, aspirin, Dulcolax, Wellbutrin, vitamin B12, dextrose, Pepcid, fentanyl, heparin, Lantus, insulin human regular, mineral oil, nitroglycerin, norepinephrine, Zofran, total parenteral nutrition, trazodone. ALLERGIES: THE PATIENT DOES NOT REPORT ANY KNOWN DRUG ALLERGIES. AN ALLERGY TO METOCLOPRAMIDE HAS BEEN ENTERED IN THE PATIENT'S CHART. THE PATIENT RECEIVED A SINGLE DOSE OF REGLAN APPROXIMATELY 1 TO 2 HOURS PRIOR TO THE SYMPTOMS DESCRIBED ON THE AFTERNOON OF 08/10/2018. NO KNOWN FOOD ALLERGIES. NO KNOWN ALLERGIES TO LATEX. NO KNOWN ALLERGIES TO IODINE OR OTHER CONTRAST MATERIALS. PHYSICAL EXAMINATION: VITAL SIGNS: At present, the patient is receiving TPN at 55 mL/h. She is receiving norepinephrine at 26.2 mL/h. She is receiving insulin at 4 units/hour. Height 61 inches, weight 279 pounds, BMI 52.7 kg/m2, blood pressure 132/63 mmHg, pulse 95 beats per minute, respiratory rate 21 breaths per minute, oxygen saturation 98% on 2.5 L by nasal cannula. GENERAL: The patient is awake and alert, does not appear distressed. Morbidly obese. HEENT: Normocephalic, atraumatic. Pupils are equal, round, and reactive to light. Moist mucous membranes. NECK: Supple. No appreciable thyromegaly. No appreciable carotid bruits. CARDIOVASCULAR: S1, S2. Regular rate and rhythm. No murmurs, rubs, or gallops. RESPIRATORY: Clear to auscultation bilaterally. No wheezes, rhonchi, or rales. EXTREMITIES: The skin is warm and dry. No clubbing, cyanosis, or edema. The posterior tibial and dorsalis pedis pulses are 1+ and symmetric. There is an AV fistula in the left forearm, positive bruit. SKIN: No rashes or lesions. NEUROLOGIC: Memory/Attention: The patient is awake and alert, oriented to person, place, time, and situation. Cranial Nerves: Cranial nerve I -- not tested. Cranial nerve II, III, IV, and -- pupils are equal and round, react briskly to light (from 4 mm to 2 mm). Extraocular movements intact. No nystagmus. Cranial nerve V -- sensation to light touch is intact in the bilateral V1 through V3 distributions. Strength in the temporalis and masseter muscles is within normal limits. Cranial nerve VII -- the face is symmetric as are all facial movements. Strength is within normal limits. Cranial nerve VIII -- hearing is intact to finger rub bilaterally. Cranial nerve IX, X --the soft palate elevates equally and symmetrically. Cranial nerve XI -- normal strength of the bilateral sternocleidomastoid and trapezius muscles. Cranial nerve XII -- the tongue protrudes midline and moves symmetrically from [id number]. Strength: Bulk is normal. Strength is 5/5 in the bilateral deltoids, biceps, triceps, wrist flexors and extensors, finger flexors and extensors, intrinsic hand muscles, hip flexors, knee flexors and extensors, ankle dorsiflexion and plantar flexion, and intrinsic foot muscles. Tone is normal. DTRs: Deep tendon reflexes are 1+ and symmetric at the triceps, biceps, brachioradialis, and patellas. Deep tendon reflexes are absent and symmetric at the Achilles. Plantar responses are flexor bilaterally. Sensation: Sensation is intact to light touch in both arms and both legs. Cerebellar: [id number] and heel-house movements are intact without dysmetria or other impairment. Gait: Deferred. Speech: Spontaneous speech is normal without appreciable dysarthria or aphasia. Repetition is intact. Involuntary movements: None. Pronator Drift: None. LABORATORY DATA: The most recent comprehensive metabolic panel is significant for a sodium of 132, chloride of 86, anion gap of 28.0, BUN of 54, creatinine of 8.70, estimated GFR of 5, glucose of 364, calcium of 10.8, total protein of 9.5, and globulin of 5.2. Hemoglobin A1c 7.5. TSH 1.896, free T4 1.13. Lipase 238. Ammonia 72 on 08/10/2018. Vitamin B12 of 1034 on 08/08/2018. Homocystine 10.1 on 08/08/2018. Folate was 10.1 on 08/08/2018. Methylmalonic acid is pending. The CBC with differential and platelets reveals a white blood cell count of 19.17 with a left shift with 77.0% neutrophils, 8.3% lymphocytes, 10.8% monocytes, 1.9% eosinophils, and 0.6% basophils. The hemoglobin and hematocrit are 11.4 and 38.9, respectively. The platelet count is 548. An arterial blood gas drawn on 08/10/2018, revealed a pH of 7.42, pCO2 of 32, PO2 of 421, bicarbonate of 21, O2 saturation of 100.0, base excess of -4.0, FiO2 of 100. From 08/11/2018, PT 68.8, INR 8.15, PTT 104.3. A zinc level is pending. Rheumatoid factor 11.1. GAVI screen negative. Hepatitis B surface antigen negative. Hepatitis B surface antibody quantitative 157.5. Hepatitis B core total antibody negative. Hepatitis B core IgM antibody negative. HIV #1 and #2 nonreactive. Influenza types A, B antigen negative. Clostridium difficile toxin A and B negative. Blood cultures collected on 08/10/2018, revealed no growth after 24 hours. Blood cultures collected on 08/11/2018 are pending. DIAGNOSTIC STUDIES: Electrocardiogram of 07/26/2018: Sinus tachycardia at 107 beats per minute. Right axis deviation. Pulmonary disease pattern. Right ventricular hypertrophy. Echocardiogram of 08/05/2018: Ejection fraction greater than 50%. No valvular heart disease. Chest x-ray, 08/09/2018: Very limited study as above. Enlarged cardiomediastinal silhouette and mild central vascular congestion. CT abdomen and pelvis, 08/09/2018: No evidence of ileus or bowel obstruction. CT of the brain without contrast, 08/10/2018: On my review, there is no evidence of recent large territorial ischemia, hemorrhage, mass, or mass effect. Cerebral volumes are appropriate for age. There are no findings suggestive of chronic small- vessel ischemic disease. Chest x-ray, 08/10/2018: No acute thoracic abnormality. Mildly enlarged cardiomediastinal silhouette with central vascular congestion. Abdomen ultrasound, 08/11/2018: Substantially limited examination as above. Status post cholecystectomy. Pancreas and common bile ducts are not visualized. Mild right pelviectasis without definite hydronephrosis. Chest x-ray, 08/11/2018: No acute cardiopulmonary abnormalities. ASSESSMENT AND PLAN: Ms. Correa is a 42-year-old right-hand dominant woman with an extensive past medical history in the midst of a prolonged hospitalization as detailed in the history of present illness. On the afternoon of 08/10/2018, the patient experienced transient agitation and confusion as described in the history of present illness. These symptoms persisted for several minutes. Per the patient's nurse as well as documentation in the electronic medical record, the symptoms were associated with hypotension with blood pressures as low as 70s/40s mmHg and tachycardia. As the patient's blood pressure gradually improved, her agitation and confusion gradually improved as well. At present, the patient's neurological examination is nonfocal. Her laboratory data and other diagnostic studies have been reviewed and are documented above. In my opinion, the most probable cause of the patient's symptoms was hypotension. Significant hypotension can cause confusion and agitation. Often times, these patients are tachycardic in order to supply the necessary blood to the other organs. The Pulmonary/Critical Care Service is concerned the symptoms described in the history of present illness were triggered by Reglan. It is possible Reglan did contribute to the patient's confusion and agitation. The dose of Reglan was administered approximately 2 hours prior to the onset of the above described symptoms. Reglan is known to reach peak serum concentrations within 1 to 2 hours of administration. Possibly contributing to the patient's agitation and confusion as well is sepsis. Ms. Correa has run low- grade fevers over the past 24 hours. Her blood pressures have fluctuated requiring pressor support. The patient's white blood cell count has increased over the past two days as well. RECOMMENDATIONS: Are as follows: I agree with discontinuation of treatment with Raglan. Followup pending cultures to ascertain for an underlying infection. Continue all other current treatments. There are no other recommendations for further evaluation at this time. Thank you for this consultation. Please call again with any questions or concerns. TIME SPENT: 50 minutes. Virgen Bailey MD CP/MATEUS /[id number] LEILANI
[2018-08-12] MEDS: NOREPINEPHRINE INJ 4MG/4ML 8 MG in DEXTROSE 5% 250ML 250 ML IV SCH ×3 (02:12→22:53)
[2018-08-12 05:41] LABS: HEMATOCRIT 34.2 % (34.2-44.1); HEMOGLOBIN 10.2 g/dL (12.0-16.0); MEAN CORPUSCULAR HEMOGLOBIN 31.8 pg (28-32); MEAN CORPUSCULAR HGB CONC 29.8 g/dL (31-35); MEAN CORPUSCULAR VOLUME 106.5 fL (81-99); PLATELET COUNT 373 x10e3/uL (140-360); RED BLOOD COUNT 3.21 x10e6/uL (3.6-5.1); RED CELL DISTRIBUTION WIDTH 16.3 % (11.7-14.4)
[2018-08-12 05:51] LABS: ANION GAP 19.6 mmol/L (8-16); CALCIUM 11.7 mg/dL (8.4-10.2); CREATININE, SERUM 5.88 mg/dL (0.57-1.11); INR 1.12; PHOSPHORUS 2.8 MG/DL (2.3-4.7); POTASSIUM 3.6 mmol/L (3.5-5.1); PROTHROMBIN TIME 14.9 seconds (11.9-14.5)
[2018-08-12 05:52] LABS: PARTIAL THROMBOPLASTIN TIME 33.5 seconds (23.8-35.5)
[2018-08-12] MEDS ORDERED: SODIUM CHLORIDE 0.9% 250ML 250 ML IV ONE (08:15)
[2018-08-12] MEDS: INSULIN GLARGINE 100 UNITS/ML VIAL SQ SCH ×2 (09:00→20:47)
[2018-08-12] MEDS ORDERED: CENTRAL TPN FORMULA 1 BAG IV SCH ×2 (09:00→21:00)
[2018-08-12] MEDS: CYANOCOBALAMIN 1,000 MCG TAB PO SCH (09:32)
[2018-08-12] MEDS: MIDODRINE HCL 5 MG TABLET PO SCH ×3 (09:32→16:00)
[2018-08-12] MEDS: BUPROPION HCL 75 MG TAB PO SCH ×2 (09:32→16:39)
[2018-08-12] MEDS: ONDANSETRON HCL 4 MG ORAL DISINTEGRATING TAB PO PRN (10:49)
[2018-08-12 12:03] LABS: ANISOCYTOSIS SLIGHT; EOSINOPHILS % (MANUAL) 2 % (0-7); HYPOCHROMASIA SLIGHT; LYMPHOCYTES % (MANUAL) 12 % (19-48); METAMYELOCYTES % (MANUAL) 2 % (0-0); MONOCYTES % (MANUAL) 14 % (3.4-9.0); MYELOCYTES % (MANUAL) 2 % (0-0); NEUTROPHILS % (MANUAL) 68 % (40-74); PLATELET ESTIMATE ADEQUATE; PLATELET MORPHOLOGY COMMENT NORMAL; RBC MORPHOLOGY COMMENT NORMAL
[2018-08-12] MEDS: ACETAMINOPHEN 325 MG/10 ML UDC NG PRN (12:48)
--- NOTE | 2018-08-12 15:41 | NUR ---
WOUND CARE PUP SCREEN STATUS: Kerwin Score =13 Strict PUP Active LOS= 21 Days Age= 42 Rotational BARRIE Air Mattress, Patient Position Changes Set to q15 min. HOB = 30 Degrees Heel Protectors in Place PATIENT VISIT / SKIN CHECK: No Pressure Ulcers Identified. Patient more active and able to assist with turning. RECOMMENDATION: - Continue Strict PUP Addendum: 08/12/18 at 1545 by Cj Helm RN Amended: Links added.
--- NOTE | 2018-08-12 16:17 | NUR ---
Follow-up Note RD Recommendation(s) for Physician: Current TPN (50% dextrose, 10% AA) with 50g lipids M/W/F at 50mL/hr, providing total of 1453kcal, 300g dextrose, 60g protein, and 1200ml total volume/day. Meeting 100% est calorie and 100% est protein needs. TPN recommendation: Rec to decrease dextrose to 30% at the 55mL/hr, to keep BG under better control. - BG and insulin management per MD. - BMP, Phos, Mag repeat daily; prealbumin, LFT, TG monitor weekly - Advance diet as tolerated to renal/ ADA 1600 if PO is feasible; diet texture per INSURANCE LAW SPECIALIST - Continue with TPN per MD until diet is advanced and intake >50% Plan of Care: RD following, monitoring for tolerance and adequacy, TPN Nutrition reason for involvement: follow up RD Assessment 08/12: Pt was discussed during AM rounds. Pt was getting Levophed at 9mcg/ min but vasopressin was off. Last HD was on 08/11 with 1L fluids removed. Pt was hypotensive yesterday, triggered by Reglan given. TF was off due to high gastric residual. Currently receiving TPN listed above. BG continued to run high between 230-250. Phos WNL. Mg was high at 3.0. Na and K were WNL. RD rec to decrease % dextrose to 30% to get BG under better control as pt was getting 300g dextrose/ day with current TPN order. INSURANCE LAW SPECIALIST evaluated pt today. Bedside swallow showed mild pharyngeal dysphagia with reduced laryngeal elevation/excursion with silent aspiration of thin liquids. MBS pending. No diet ordered at this time. Will continue to monitor and follow. 08/10 : Follow up: Discussed pt in AM rounds, pt has been extubated and is on bipap, pt still on pressors, per nurse goal is to wean pt off of vasopressin today-per EMR pt is currently not on vasopressin anymore, pt is still on 7.74 mls/hr of levophed. TF are on hold and will be d/c per nurse. Pt had gastric residuals of over 400 yesterday and N/V, MD wants to start TPN. Macronutrient recommendations are provided above. No TPN order has been ordered as of now. Recommend to increase rate when medically feasible, pending lab trends. If MD decides to re-initiate TF while pt is on pressors-please consult RD for appropriate rate and formula. Will continue to monitor. 08/08: Visited Pt. Nepro at 10ml/hr and Consult received from regarding increasing kcals On Nepro at 10ml/hr currently via NGT. Pt extubated. 08/05: Pt seen for follow up, discussed during am rounds- plan for MBSS today, pt failed BSE. Pt extubated 08/02, currently NPO pending MBSS results- planned for today after HD tx. Pt continues on 2 pressors, Levo at 4 mcg/min and Vaso at 2.4 units/hr. Pt sleeping on HD at time of visit. POC reviewed with RN. 07/31: Follow up: Pt remains intubated and sedated. Pt has been weened off of vasopressin, but is still on levo (2mcg/min) per nurse. Per nurse: doctors will not try to extubate until pt is off of all pressors. Pt was ordered Nepro at 40 ml/hr (which is currently on hold and will be started at 20 ml/hr per nurse). Spoke with nurse about new formula recommendation, since pt is still intubated and on pressor support- above recommendations are appropriate. Nurse reported she will change TF. Will continue to monitor. 07/28: Pt remains intubated and sedated. Pt currently high dose pressors of Levophed at 25 mcg/min and Vasopressin at 1.8 ml/hr. Pt on TF of Nepro at 40 ml/hr and receiving HD tx at time of visit. No family at bedside at time of visit. POC and rec's reviewed with RN on unit. Initial encounter with patient. Pt with a change of status on 07/24. She became unresponsive , a rapid response was called and she is now orally intubated and sedated. Orogastric tube in place on suction at time of visit. Unable to obtain a nutrition Hx from Pt. Pt is well known at [facility]. Overweight/obesity, Principal Problems/Diagnoses: Chest Pain PMH: ESRD, diastolic heart failure, HTN, Hyperlipidemia GI: Abd: soft, non-tender, large, LBM 08/12 (liquid) Skin: No Pressure Ulcers Identified. Labs: 08/12: BUN 28 H, Creatinine 5.88 H, glucose 249 H, Ca 11.7 H, Mg 3.0 H 08/10: POC Gluc: 223 08/08 lab results reviewed 08/05: Na 134, K 3.6, BUN 46, Cr 8.01, Gluc 219 07/31: Cl 96, BUN 33. Creat 6.28, Gluc: 216 07/28: Na 136, K 4.9, BUN 37, Cr 6.07, Gluc 190 Meds: zofran, vitamin B12, lantus, levophed Malnutrition Evaluation (08/10/2018) The patient does not meet criteria for a specified degree of malnutrition at this time. Will re-evaluate at follow-up as appropriate. Diet Education Needs Assessment: Diet education not indicated. Ht:61 Wt:301 lbs; 279lbs BMI:59.6kg/m2 IBW:105lbs Estimated Nutritional Needs (HD/ non-ventilated) 1237-0928 kcal (25-30 kcal/kg/IBW)-HD non ventilated 57-72 gm protein (1.2-1.5 g/kg/IBW)- HD Nutrition Prescription (Diet Order): NPO Food Allergies: No known food allergies Diet Adequacy: On TPN Nutrition Care Level: High Nutrition Diagnosis: Altered GI function related to current medical status as evidenced by pt requiring PN as main source of nutrition. Goal: Patient will meet 75-100% of estimated needs by follow up Progress: Goal met Interventions: Solution, Composition, Rate, Route Monitoring/Evaluation: Total energy intake, Total protein intake, Formula/Solution, Weight change, Labs Signed: Samantha Goodman MS, RD, LD
[2018-08-12] MEDS: BUSPIRONE HCL 5 MG TAB PO SCH (16:39)
--- NOTE | 2018-08-12 17:48 | Progress Note ---
DATE: 08/12/2018 Psychiatric Progress Note SUBJECTIVE: The patient is evaluated and events noted. The patient is in the ICU. She is calm and corroborated. She is alert, awake, and oriented to situation. The patient states that she is still have anxiety especially during dialysis. She denies any hallucination or confusion. She denies any suicidal ideation. She denies any problems with sleep. She denies any side effects from medication. As per nursing staff, the patient is doing better. She is less anxious she is calm. ASSESSMENT: 1. Major depressive disorder, recurrent, moderate. 2. Generalized anxiety disorder. PLAN: 1. Continue BuSpar 10 mg p.o. three times a day as needed. 2. p.o. b.i.d. 3. Continue Wellbutrin 150 mg p.o. b.i.d. 4. Monitor for mood. 5. Supportive therapy. 6. Discussed with nursing staff. Dictated by Lashay Bustillos PA-C Alek Marie MD QTV/MODL /[id number]
[2018-08-12] MEDS: FAMOTIDINE 20 MG TAB PO SCH (20:46)
[2018-08-12] MEDS: INSULIN REGULAR, HUMAN 3ML VL 100 UNIT in SODIUM CHLORIDE 0.45% 100 ML 100 ML IV SCH ×2 (20:48)
[2018-08-12] MEDS: TRAZODONE HCL 50 MG TAB PO PRN (20:52)
[2018-08-13] VITALS (24 sets, daily range): BP systolic 81–123; BP diastolic 44–98
[2018-08-13] MEDS: NOREPINEPHRINE INJ 4MG/4ML 8 MG in DEXTROSE 5% 250ML 250 ML IV SCH ×3 (00:02→04:06)
[2018-08-13] MEDS: INSULIN REGULAR, HUMAN 3ML VL 100 UNIT in SODIUM CHLORIDE 0.45% 100 ML 100 ML IV SCH ×4 (00:21→04:17)
[2018-08-13 05:49] LABS: BASOPHILS # (AUTO) 0.1 (0.0-0.1); BASOPHILS % 0.5 % (0.0-1.0); EOSINOPHILS # (AUTO) 0.7 (0.0-0.4); EOSINOPHILS % 4.4 % (0.0-6.0); HEMATOCRIT 33.1 % (34.2-44.1); HEMOGLOBIN 9.9 g/dL (12.0-16.0); LYMPHOCYTES # (AUTO) 2.2 (1.0-3.2); LYMPHOCYTES % 14.1 % (18.0-39.1); MEAN CORPUSCULAR HEMOGLOBIN 31.5 pg (28-32); MEAN CORPUSCULAR HGB CONC 29.9 g/dL (31-35); MEAN CORPUSCULAR VOLUME 105.4 fL (81-99); MONOCYTES # (AUTO) 1.5 (0.2-0.8); MONOCYTES % 9.5 % (4.4-11.3); NEUTROPHILS # (AUTO) 10.8 (2.1-6.9); NEUTROPHILS % 70.4 % (38.7-80.0); PLATELET COUNT 283 x10e3/uL (140-360); RED BLOOD COUNT 3.14 x10e6/uL (3.6-5.1); RED CELL DISTRIBUTION WIDTH 16.1 % (11.7-14.4)
[2018-08-13 06:17] LABS: ALBUMIN 3.7 g/dL (3.5-5.0); ALBUMIN/GLOBULIN RATIO 0.8 (0.8-2.0); ANION GAP 22.5 mmol/L (8-16); CALCIUM 11.2 mg/dL (8.4-10.2); CREATININE, SERUM 7.31 mg/dL (0.57-1.11); POTASSIUM 3.5 mmol/L (3.5-5.1)
[2018-08-13] MEDS: MIDODRINE HCL 5 MG TABLET PO SCH ×3 (07:33→17:40)
[2018-08-13] MEDS: BUSPIRONE HCL 5 MG TAB PO SCH (08:37)
[2018-08-13] MEDS: CYANOCOBALAMIN 1,000 MCG TAB PO SCH (08:37)
[2018-08-13] MEDS: BUPROPION HCL 75 MG TAB PO SCH ×2 (08:38→17:40)
[2018-08-13] MEDS: INSULIN GLARGINE 100 UNITS/ML VIAL SQ SCH ×2 (09:00→22:04)
[2018-08-13 09:50] LABS: INR 0.97; PROTHROMBIN TIME 13.4 seconds (11.9-14.5)
[2018-08-13 09:58] LABS: PARTIAL THROMBOPLASTIN TIME 29.9 seconds (23.8-35.5)
--- NOTE | 2018-08-13 12:13 | History and Physical ---
HISTORY OF PRESENT ILLNESS: Armida Correa is a 42-year-old female, who was referred to me for evaluation of coagulopathy. The patient had a prothrombin time of 68.8 and INR of 8.15 on 08/11, subsequently referred to me for further evaluation and treatment. PAST MEDICAL HISTORY: History of severe COPD, history of chronic renal failure, history of major depression, history of sleep apnea, history of pulmonary hypertension, history of coronary artery disease, and history of morbid obesity, history of chronic diastolic congestive heart failure, and history of hyperlipidemia. SOCIAL HISTORY: Noncontributory. FAMILY HISTORY: Noncontributory. ALLERGIES: REPORTED REGLAN. MEDICATIONS: At this time: 1. Norepinephrine. 2. Sodium chloride. 3. Insulin. 4. TPN. 5. Nitroglycerin. 6. Aspirin. 7. Ondansetron. 8. Albumin. 9. Tylenol. 10. Midodrine. 11. BuSpar. 12. Promethazine. 13. Mineral oil. 14. Trazodone. 15. Pepcid. 16. Heparin. 17. Dextrose. 18. Cyanocobalamin. The patient also in the past was on isosorbide. The patient was on Zosyn. The patient was on morphine dated 07/24/2018. The patient was also on vancomycin dated 07/27/2018. REVIEW OF SYSTEMS: HEENT: Normal. CARDIAC: History of coronary artery disease, history of diastolic congestive heart failure, history of hyperlipidemia. RESPIRATORY: History of pulmonary hypertension, history of COPD, and history of sleep apnea. GI: Reported normal. : History of chronic renal failure. MUSCULOSKELETAL: Morbid obesity. NEUROENDOCRINE: History of diabetes mellitus. PHYSICAL EXAMINATION: GENERAL: Morbidly obese female with a nasogastric tube. Multiple IVs. VITAL SIGNS: Blood pressure 90/50. HEART: Within normal limits. LUNGS: Few crepitations. ABDOMEN: Obese. Could not be examined properly. BREASTS: Could not be examined properly. RECTAL AND VAGINAL: Could not be done. CENTRAL NERVOUS SYSTEM: Could not be done properly. EXTREMITIES: 1+ pitting edema of the feet. LABS: Labs which has prompted this consultation shows prothrombin time of 68.8, INR of 8.15, and PTT 104. Bilirubin 0.8, SGOT 21, SGPT 6, alkaline phosphatase 123. Hemoglobin of 11.4, hematocrit 38.9, white count 19,100, and platelets 548,000. Sodium 132, potassium 4.0, chloride is 86, CO2 22, BUN 54, and creatinine 8.7. IMPRESSION: 1. Chronic renal failure. 2. History of major depression. 3. History of sleep apnea. 4. History of pulmonary hypertension. 5. History of coronary artery disease. 6. History of morbid obesity. 7. History of chronic diastolic congestive heart failure. 8. History of hyperlipidemia. 9. Iron deficiency (MCHC 29.9, RDW 15.9). 10. Leukocytosis (ranging between 15.1 to 19.1). 11. Secondary thrombocytosis (666,000 today). 12. Persistent Staph aureus in the sputum. 13. Acquired coagulopathy. 14. Pressors. 15. History of diabetes mellitus. PLAN, COMMENTS, AND SUGGESTIONS: 1. Suggest fresh frozen plasma. Suggest vitamin K. Repeat INR. Fibrinogen level is suggested. 2. Vitamin K deficiency a few years back because of antibiotics. 3. This should not be confused with DIC. The patient has no suggestion of DIC as the platelets are more than 500,000. 4. Fibrinogen level was done, which is high, more than 500. 5. The patient had vitamin K and fresh frozen plasma. INR is 1.12. I had a conversation with Dr. Daniel. My assessment remains exactly the same as dictated. Please recall me if needed. I have spoken to the family every day in detail. MD LAUREN Fox/MODL /[id number] cc: MD Alek López MD David Stein, MD Rebel Martinez MD Rachel L Schiesser, MD Salman A Khan, MD Kuldip K Kaul, MD
[2018-08-13] MEDS: ACETAMINOPHEN 325 MG/10 ML UDC NG PRN ×2 (13:24→19:47)
[2018-08-13] MEDS ORDERED: DEXTROSE 10% 1,000 ML IV PRN (14:15)
--- NOTE | 2018-08-13 14:21 | NUR ---
MOT INITIATED AND PLACED ON INSIDE OF CHART IN THE FRONT AWAIT INS AUTH
--- NOTE | 2018-08-13 16:32 | NUR ---
AUTH REC'D FOR [facility] PER ARNOL SOSA MOT ON CHART IN ICU PT AND PT'S MOTHER AWARE OF APPROVAL AND PLEASED NURSE CHRISTI CALLED FOR DC ORDER; DR LESTER REFUSED TO TRANSFER EMAIL TO DR NAQVI AND YESSENIA YEAGER REGARDING DR LESTER REFUSING TO TRANSFER CM TO FOLLOW ARNOL WITH [place] NOTIFIED
--- NOTE | 2018-08-13 16:59 | Progress Note ---
DATE: 08/13/2018 Psychiatric Progress Note BODY AFTER ALLERGIES: SUBJECTIVE: The patient is in the ICU. She is alert, awake, and oriented to situation. She reported feeling less depressed. She reported intermittently anxious. She complained of poor sleep. She denies any suicidal ideation. She denies any hallucination. She denies any side effects from medications. As per nursing staff, the patient is doing fair. She is expected to be transferred to [place] after medically cleared and a T and C. The patient's vital signs at this time are somewhat lower end is 85/50. ASSESSMENT: 1. Major depressive disorder, recurrent, and moderate. 2. Generalized anxiety disorder. PLAN: 1. Continue BuSpar 10 p.o. three times a day as needed. 2. Continue Wellbutrin 150 mg p.o. b.i.d. 3. Discontinue BuSpar 5 mg p.o. b.i.d. due to hypotension. 4. Monitor for mood. 5. Supportive therapy. 6. Discussed with nursing staff. Dictated by Lashay Bustillos PA-C Alek Marie MD QTV/MODL /[id number]
[2018-08-13] MEDS: ONDANSETRON HCL 4 MG ORAL DISINTEGRATING TAB PO PRN (17:40)
--- NOTE | 2018-08-13 20:50 | Progress Note ---
DATE: Cardiology Progress Note SUBJECTIVE: The patient feels fine today. Denies any chest discomfort or shortness of breath. OBJECTIVE: VITAL SIGNS: She is afebrile, heart rate is 92, respirations 16, blood pressure is 98/62, oxygen saturation on 3 L nasal cannula. GENERAL: Morbidly obese, no apparent distress. CARDIOVASCULAR: Regular rate and rhythm. LUNGS: Diminished breath sounds at the bases. ABDOMEN: Obese, soft, nontender. EXTREMITIES: Trace edema. CARDIOVASCULAR MEDICATIONS: Reviewed. LABORATORY DATA: Hemoglobin 9.9, creatinine is 7.3, potassium 3.5. IMPRESSION: 1. Hypotension. 2. Septic shock. 3. Respiratory failure. 4. End-stage renal disease. 5. Chronic diastolic heart failure. RECOMMENDATION: Increase midodrine to 10 mg t.i.d. Wean vasopressors as tolerated. Echocardiogram showed preserved left ventricular systolic function with diastolic dysfunction and no pericardial effusion. Continue all the treatments per primary team. Gavin Funes DO BM/MODL /[id number]
[2018-08-13] MEDS: FAMOTIDINE 20 MG TAB PO SCH (22:01)
[2018-08-13] MEDS: TRAZODONE HCL 50 MG TAB PO PRN (22:14)
[2018-08-13] MEDS: PROMETHAZINE 12.5MG/ NACL 0.9% 12.5 MG/50 ML BAG IV PRN (23:53)
[2018-08-14] VITALS (25 sets, daily range): BP systolic 83–128; BP diastolic 46–82
[2018-08-14 05:56] LABS: BASOPHILS # (AUTO) 0.1 (0.0-0.1); BASOPHILS % 0.4 % (0.0-1.0); EOSINOPHILS # (AUTO) 0.6 (0.0-0.4); EOSINOPHILS % 4.4 % (0.0-6.0); HEMOGLOBIN 8.6 g/dL (12.0-16.0); LYMPHOCYTES # (AUTO) 2.8 (1.0-3.2); MEAN CORPUSCULAR HEMOGLOBIN 31.5 pg (28-32); MEAN CORPUSCULAR HGB CONC 28.7 g/dL (31-35); MEAN CORPUSCULAR VOLUME 109.9 fL (81-99); MONOCYTES # (AUTO) 1.5 (0.2-0.8); MONOCYTES % 10.5 % (4.4-11.3); NEUTROPHILS # (AUTO) 8.9 (2.1-6.9); NEUTROPHILS % 63.5 % (38.7-80.0); PLATELET COUNT 258 x10e3/uL (140-360); RED BLOOD COUNT 2.73 x10e6/uL (3.6-5.1); RED CELL DISTRIBUTION WIDTH 16.6 % (11.7-14.4)
[2018-08-14 06:07] LABS: ANION GAP 16.3 mmol/L (8-16); CALCIUM 9.9 mg/dL (8.4-10.2); CREATININE, SERUM 4.84 mg/dL (0.57-1.11); POTASSIUM 3.3 mmol/L (3.5-5.1)
[2018-08-14] MEDS: MIDODRINE HCL 5 MG TABLET PO SCH ×3 (08:07→16:11)
[2018-08-14] MEDS: BUPROPION HCL 75 MG TAB PO SCH (08:25)
[2018-08-14] MEDS: CYANOCOBALAMIN 1,000 MCG TAB PO SCH (08:25)
[2018-08-14] MEDS: HEPARIN SOD (PORCINE) 5,000 UNIT/ML VIAL SC SCH ×2 (08:26→19:25)
[2018-08-14] MEDS: ACETAMINOPHEN 325 MG/10 ML UDC NG PRN (08:45)
[2018-08-14] MEDS ORDERED: SODIUM CHLORIDE 0.9% 250ML 250 ML IV ONE (08:45)
--- NOTE | 2018-08-14 08:50 | NUR ---
AT BEDSIDE DISCUSSED POC WITH PATIENT NO QUESTIONS VERBALIZED AT THIS TIME
[2018-08-14] MEDS: ONDANSETRON HCL 4 MG ORAL DISINTEGRATING TAB PO PRN ×3 (09:34→20:36)
[2018-08-14] MEDS: INSULIN GLARGINE 100 UNITS/ML VIAL SQ SCH ×2 (09:43→20:40)
[2018-08-14 11:24] LABS: INR 0.92; PROTHROMBIN TIME 12.9 seconds (11.9-14.5)
[2018-08-14 11:25] LABS: PARTIAL THROMBOPLASTIN TIME 31.2 seconds (23.8-35.5)
[2018-08-14] MEDS ORDERED: METOCLOPRAMIDE HCL 10 MG/2ML VIAL IV SCH (12:00)
--- NOTE | 2018-08-14 13:50 | NUR ---
Visit made by the Spiritual Care Department Pastoral Visitor, Mike Singer. PV provided pastoral presence, prayer, hospitality, and supportive listening. Pastoral Visitor informed pt/family of the scope of [employer] and availability. FREYA WRIGHT Buffing Machine Tender Spiritual Care Department O: [phone] Pager: [phone] ([phone] number calling from)
[2018-08-14] MEDS ORDERED: DEXTROSE 50% SYRINGE 50 ML IV PRN (14:15)
--- NOTE | 2018-08-14 14:37 | Diagnostic Imaging Report ---
Exam: Abdominal film Clinical History: Abdominal pain and nausea Comparison: CT abdomen and pelvis without contrast 08/09/2018 DISCUSSION: Enteric contrast material opacifies the gastric fundus, colon, and distal small bowel from modified barium swallow performed 08/12/2018. The bowel gas pattern shows no dilated, air-filled loops of bowel. No mass effect or organomegaly. Right femoral central venous catheter tip is obscured by opacified distal ileum. Surgical clips project over the right upper quadrant of the abdomen compatible with prior cholecystectomy. IMPRESSION: Nonobstructive bowel gas pattern. Contrast from modified barium swallow 08/12/2017 opacifies the distal small bowel and colon. Signed by: Dr. Rebel Bagley M.D. on 08/14/2018 2:34 PM
--- NOTE | 2018-08-14 14:39 | NUR ---
Follow-up Note RD Recommendation(s) for Physician: - Continue current diet as ordered; diet texture per CHANGE MANAGEMENT ADMINISTRATOR - If PO intake continues to be <50%, please consider Nepro BID - Rec probiotics and stool culture due to liquid stools for days Plan of Care: RD following, monitoring for tolerance and adequacy Nutrition reason for involvement: follow up RD Assessment 08/14: Pt was discussed during AM rounds. TPN was discontinued. Levophed was still at 9mcg/min. Diet has been advanced to renal/ ADA diet; CHANGE MANAGEMENT ADMINISTRATOR following. Pt was getting HD this AM. Per TALYA Kaur, pt was given Zofran for nausea. No other GI complains. Slow progress with PO since pt hasnt been getting nutrition through PO for 2 weeks. It will take some time for pt to regain appetite and increase PO intake. If PO continues to be <50%, please consider Nepro BID. Will continue to monitor and follow. 08/12: Pt was discussed during AM rounds. Pt was getting Levophed at 9mcg/ min but vasopressin was off. Last HD was on 08/11 with 1L fluids removed. Pt was hypotensive yesterday, triggered by Reglan given. TF was off due to high gastric residual. Currently receiving TPN listed above. BG continued to run high between 230-250. Phos WNL. Mg was high at 3.0. Na and K were WNL. RD rec to decrease % dextrose to 30% to get BG under better control as pt was getting 300g dextrose/ day with current TPN order. CHANGE MANAGEMENT ADMINISTRATOR evaluated pt today. Bedside swallow showed mild pharyngeal dysphagia with reduced laryngeal elevation/excursion with silent aspiration of thin liquids. MBS pending. No diet ordered at this time. Will continue to monitor and follow. 08/10 : Follow up: Discussed pt in AM rounds, pt has been extubated and is on bipap, pt still on pressors, per nurse goal is to wean pt off of vasopressin today-per EMR pt is currently not on vasopressin anymore, pt is still on 7.74 mls/hr of levophed. TF are on hold and will be d/c per nurse. Pt had gastric residuals of over 400 yesterday and N/V, MD wants to start TPN. Macronutrient recommendations are provided above. No TPN order has been ordered as of now. Recommend to increase rate when medically feasible, pending lab trends. If MD decides to re-initiate TF while pt is on pressors-please consult RD for appropriate rate and formula. Will continue to monitor. 08/08: Visited Pt. Nepro at 10ml/hr and Consult received from regarding increasing kcals On Nepro at 10ml/hr currently via NGT. Pt extubated. 08/05: Pt seen for follow up, discussed during am rounds- plan for MBSS today, pt failed BSE. Pt extubated 08/02, currently NPO pending MBSS results- planned for today after HD tx. Pt continues on 2 pressors, Levo at 4 mcg/min and Vaso at 2.4 units/hr. Pt sleeping on HD at time of visit. POC reviewed with RN. 07/31: Follow up: Pt remains intubated and sedated. Pt has been weened off of vasopressin, but is still on levo (2mcg/min) per nurse. Per nurse: doctors will not try to extubate until pt is off of all pressors. Pt was ordered Nepro at 40 ml/hr (which is currently on hold and will be started at 20 ml/hr per nurse). Spoke with nurse about new formula recommendation, since pt is still intubated and on pressor support- above recommendations are appropriate. Nurse reported she will change TF. Will continue to monitor. 07/28: Pt remains intubated and sedated. Pt currently high dose pressors of Levophed at 25 mcg/min and Vasopressin at 1.8 ml/hr. Pt on TF of Nepro at 40 ml/hr and receiving HD tx at time of visit. No family at bedside at time of visit. POC and rec's reviewed with RN on unit. Initial encounter with patient. Pt with a change of status on 07/24. She became unresponsive , a rapid response was called and she is now orally intubated and sedated. Orogastric tube in place on suction at time of visit. Unable to obtain a nutrition Hx from Pt. Pt is well known at [facility]. Overweight/obesity, Principal Problems/Diagnoses: Chest Pain PMH: ESRD, diastolic heart failure, HTN, Hyperlipidemia GI: Abd: soft, non-tender, large, LBM 08/14 (liquid) Skin: No Pressure Ulcers Identified. Labs: 08/14: K 3.3 L, Creat 4.84 H 08/12: BUN 28 H, Creatinine 5.88 H, glucose 249 H, Ca 11.7 H, Mg 3.0 H 08/10: POC Gluc: 223 08/08 lab results reviewed 08/05: Na 134, K 3.6, BUN 46, Cr 8.01, Gluc 219 07/31: Cl 96, BUN 33. Creat 6.28, Gluc: 216 07/28: Na 136, K 4.9, BUN 37, Cr 6.07, Gluc 190 Meds: zofran, vitamin B12 Malnutrition Evaluation (08/10/2018) The patient does not meet criteria for a specified degree of malnutrition at this time. Will re-evaluate at follow-up as appropriate. Diet Education Needs Assessment: Diet education not indicated. Ht:61 Wt:301 lbs; 279lbs; 292lbs BMI:59.6kg/m2 IBW:105lbs Estimated Nutritional Needs (HD/ non-ventilated) 5002-1865 kcal (25-30 kcal/kg/IBW)-HD non ventilated 57-72 gm protein (1.2-1.5 g/kg/IBW)- HD Nutrition Prescription (Diet Order): Renal/ ADA diet Food Allergies: No known food allergies Diet Adequacy: Not meeting protein/calorie needs Nutrition Care Level: Mod Nutrition Diagnosis: Inadequate oral intake related to current medical status as evidenced by PO intake <50%. Goal: Patient will meet 75-100% of estimated needs by follow up Progress: Progressing Interventions: Modified diet, collaboration with providers Monitoring/Evaluation: Total energy intake, Total protein intake, Modified diet, Weight change, Labs Signed: Samantha Goodman, MS, RD, LD
[2018-08-14] MEDS: INSULIN LISPRO 100 UNIT/1 ML 3ML VIAL SQ SCH ×3 (16:11→20:39)
[2018-08-14] MEDS: VENLAFAXINE HCL 37.5 MG TAB PO SCH (17:05)
[2018-08-14] MEDS: NOREPINEPHRINE INJ 4MG/4ML 8 MG in DEXTROSE 5% 250ML 250 ML IV SCH ×2 (18:30→21:39)
--- NOTE | 2018-08-14 19:00 | NUR ---
Bedside report received from Jocy Ruelas RN. Pt received resting in bed with eyes open, pt dtr at the bedside, care plan reviewed. No signs of distress or discomfort noted or reported by the pt at this time.
--- NOTE | 2018-08-14 20:00 | NUR ---
Called AM nurse Sonal BABIN regarding heparin sc orders. She reported to me that this medication is on hold and that she will follow up with when she returns in the morning. NAGA Herrera RN aware for morning report as well and I wrote it on the pts kardex/report sheet.
--- NOTE | 2018-08-14 20:23 | Progress Note ---
DATE: 08/14/2018 Psychiatric Progress Note SUBJECTIVE: The patient is evaluated and events noted. The patient is in the ICU. She states that . She denies any hallucination. She denies any suicidal ideation. She denies any problem with sleep or appetite. She denies any side effects from medication. The patient's Wellbutrin has been discontinued due to possible interaction with nausea medication. ASSESSMENT: 1. Major depressive disorder, recurrent, moderate. 2. Generalized anxiety disorder. PLAN: 1. Continue Buspar 7.5 mg p.o. three times a day as needed. 2. Add Effexor 37.5 mg p.o. b.i.d. 3. Monitor for mood. 4. Supportive therapy. Dictated by Lashay Bustillos PA-C Alek Marie MD QTV/MODL /[id number]
[2018-08-14] MEDS: BUSPIRONE HCL 5 MG TAB PO PRN (20:35)
[2018-08-14] MEDS: FAMOTIDINE 20 MG TAB PO SCH (20:36)
[2018-08-14] MEDS: PROMETHAZINE 12.5MG/ NACL 0.9% 12.5 MG/50 ML BAG IV PRN (21:15)
[2018-08-14] MEDS ORDERED: NOREPINEPHRINE 8 MG/D5W 250 ML 250 ML ONE (21:29)
[2018-08-15] VITALS (24 sets, daily range): BP systolic 86–117; BP diastolic 54–93
[2018-08-15 04:41] LABS: BASOPHILS # (AUTO) 0.1 (0.0-0.1); BASOPHILS % 0.6 % (0.0-1.0); EOSINOPHILS # (AUTO) 0.6 (0.0-0.4); EOSINOPHILS % 5.5 % (0.0-6.0); HEMATOCRIT 31.7 % (34.2-44.1); HEMOGLOBIN 9.2 g/dL (12.0-16.0); LYMPHOCYTES # (AUTO) 2.3 (1.0-3.2); LYMPHOCYTES % 21.6 % (18.0-39.1); MEAN CORPUSCULAR HEMOGLOBIN 31.8 pg (28-32); MEAN CORPUSCULAR VOLUME 109.7 fL (81-99); MONOCYTES # (AUTO) 1.5 (0.2-0.8); MONOCYTES % 13.8 % (4.4-11.3); NEUTROPHILS # (AUTO) 6.2 (2.1-6.9); NEUTROPHILS % 57.6 % (38.7-80.0); PLATELET COUNT 258 x10e3/uL (140-360); RED BLOOD COUNT 2.89 x10e6/uL (3.6-5.1); RED CELL DISTRIBUTION WIDTH 16.5 % (11.7-14.4)
[2018-08-15 05:03] LABS: ALBUMIN 3.5 g/dL (3.5-5.0); ALBUMIN/GLOBULIN RATIO 0.9 (0.8-2.0); ANION GAP 17.8 mmol/L (8-16); CALCIUM 9.7 mg/dL (8.4-10.2); CREATININE, SERUM 4.33 mg/dL (0.57-1.11); POTASSIUM 3.8 mmol/L (3.5-5.1)
--- NOTE | 2018-08-15 05:53 | Diagnostic Imaging Report ---
Examination: Single AP view of the chest. COMPARISON: None. INDICATION: Chest pain, shortness of breath DISCUSSION: Lines/tubes: None. Lungs: The lungs are well inflated and clear. No pneumonia or pulmonary edema. Pleura: No pleural effusion or pneumothorax. Heart and mediastinum: The heart and the mediastinum are unremarkable. Bones and soft tissues: No acute bony abnormalities. IMPRESSION: 1. No acute cardiopulmonary abnormalities. Signed by: Dr. Nick Tejada M.D. on 08/15/2018 5:50 AM
[2018-08-15] MEDS: INSULIN LISPRO 100 UNIT/1 ML 3ML VIAL SQ SCH ×7 (07:30→19:56)
[2018-08-15] MEDS: VENLAFAXINE HCL 37.5 MG TAB PO SCH ×2 (08:49→16:25)
[2018-08-15] MEDS: CYANOCOBALAMIN 1,000 MCG TAB PO SCH (08:49)
[2018-08-15] MEDS: HEPARIN SOD (PORCINE) 5,000 UNIT/ML VIAL SC SCH ×2 (08:49→19:57)
[2018-08-15] MEDS: MIDODRINE HCL 5 MG TABLET PO SCH ×3 (08:49→16:25)
[2018-08-15] MEDS: INSULIN GLARGINE 100 UNITS/ML VIAL SQ SCH ×2 (09:13→19:56)
[2018-08-15 09:17] LABS: INR 0.92; PROTHROMBIN TIME 12.9 seconds (11.9-14.5)
[2018-08-15 09:18] LABS: PARTIAL THROMBOPLASTIN TIME 32.7 seconds (23.8-35.5)
[2018-08-15] MEDS: PROMETHAZINE 12.5MG/ NACL 0.9% 12.5 MG/50 ML BAG IV PRN ×2 (09:20→19:56)
[2018-08-15] MEDS: BUSPIRONE HCL 5 MG TAB PO PRN (09:55)
[2018-08-15] MEDS: FLUDROCORTISONE ACETATE 0.1 MG TAB PO SCH (09:55)
--- NOTE | 2018-08-15 14:29 | NUR ---
SPOKE TO DR.FAISAL RODRIGUEZ TO RESUME SUBQ HEPARIN AT THIS TIME
--- NOTE | 2018-08-15 15:28 | Progress Note ---
DATE: SUBJECTIVE: The patient is seen sitting at bedside in chair. Still on low-dose norepinephrine. No cardiac symptoms reported. OBJECTIVE: VITAL SIGNS: Temperature 97.4, heart rate is 82, respirations 17, blood pressure is 110/67, and oxygen saturation is 100% on 3 L nasal cannula. GENERAL: Well-appearing obese woman, seated at bedside, no apparent distress. CARDIOVASCULAR: Regular rate and rhythm. LUNGS: Diminished breath sounds. ABDOMEN: Soft, obese, nontender. EXTREMITIES: 1+ edema. CARDIOVASCULAR MEDICATIONS: Reviewed. LABORATORY DATA: Hemoglobin 9.2 creatinine 4.3. Telemetry monitoring revealed sinus rhythm. IMPRESSION: 1. Hypotension. 2. Septic shock. 3. Respiratory failure. 4. End-stage renal disease. 5. Chronic diastolic heart failure. RECOMMENDATIONS: Her midodrine was increased to t.i.d. approximately two days ago. She was started on Florinef in addition for blood pressure support. Wean norepinephrine as tolerated. Continue all other current cardiovascular medications. DO MATT Spivey/MODL /[id number]
--- NOTE | 2018-08-15 18:30 | NUR ---
LEVOPHED TURNED OFF. WILL MONITOR CLOSELY
[2018-08-15] MEDS: ONDANSETRON HCL 4 MG ORAL DISINTEGRATING TAB PO PRN (19:38)
[2018-08-15] MEDS: FAMOTIDINE 20 MG TAB PO SCH (19:57)
[2018-08-16] VITALS (22 sets, daily range): BP systolic 93–126; BP diastolic 50–87
[2018-08-16] MEDS: INSULIN LISPRO 100 UNIT/1 ML 3ML VIAL SQ SCH ×7 (07:30→20:30)
[2018-08-16] MEDS: CYANOCOBALAMIN 1,000 MCG TAB PO SCH (08:36)
[2018-08-16] MEDS: MIDODRINE HCL 5 MG TABLET PO SCH ×3 (08:36→16:12)
[2018-08-16] MEDS: FLUDROCORTISONE ACETATE 0.1 MG TAB PO SCH (08:36)
[2018-08-16] MEDS: VENLAFAXINE HCL 37.5 MG TAB PO SCH ×2 (08:36→16:12)
[2018-08-16] MEDS: HEPARIN SOD (PORCINE) 5,000 UNIT/ML VIAL SC SCH ×2 (08:41→20:30)
[2018-08-16] MEDS: INSULIN GLARGINE 100 UNITS/ML VIAL SQ SCH (10:00)
[2018-08-16 10:22] LABS: INR 0.97; PROTHROMBIN TIME 13.4 seconds (11.9-14.5)
[2018-08-16 10:23] LABS: PARTIAL THROMBOPLASTIN TIME 35.5 seconds (23.8-35.5)
--- NOTE | 2018-08-16 16:12 | Progress Note ---
DATE: 08/16/2018 Cardiology Progress Note SUBJECTIVE: The patient is sleeping. Denies any chest pain or shortness of breath. OBJECTIVE: VITAL SIGNS: Temperature 98.3, heart rate is 83, respirations are 19, blood pressure is 101/68, and oxygen saturation is 98% on 3 L nasal cannula. GENERAL: Chronically ill-appearing woman, lying comfortably in bed, in no apparent distress. CARDIOVASCULAR: Regular rate and rhythm. LUNGS: Diminished breath sounds in the bases. ABDOMEN: Obese, soft, nontender. EXTREMITIES: Edema. VASCULAR: Diminished pulses. CARDIOVASCULAR MEDICATIONS: Reviewed, include fludrocortisone and midodrine. TELEMETRY: Monitoring revealed sinus rhythm. IMPRESSION: 1. History of septic shock with chronic hypotension. 2. Respiratory failure, resolved. 3. End-stage renal disease. 4. Chronic diastolic heart failure. 5. Morbid obesity. RECOMMENDATIONS: The patient was successfully weaned off norepinephrine today. Continue fludrocortisone and midodrine for pressure support. Continue all of the current cardiovascular medications. Volume removal through hemodialysis. Gavin Funes DO BM/MODL /[id number]
[2018-08-16] MEDS: NOREPINEPHRINE INJ 4MG/4ML 8 MG in DEXTROSE 5% 250ML 250 ML IV SCH (18:30)
[2018-08-16] MEDS: FAMOTIDINE 20 MG TAB PO SCH (20:28)
[2018-08-16] MEDS ORDERED: INSULIN GLARGINE 100 UNITS/ML VIAL SQ SCH (21:00)
[2018-08-16] MEDS: ACETAMINOPHEN 325 MG/10 ML UDC NG PRN (21:47)
[2018-08-16] MEDS: BUSPIRONE HCL 5 MG TAB PO PRN (21:47)
[2018-08-17] VITALS (21 sets, daily range): BP systolic 80–131; BP diastolic 41–89
[2018-08-17 05:00] LABS: INR 0.91; PROTHROMBIN TIME 12.7 seconds (11.9-14.5)
[2018-08-17] MEDS: INSULIN LISPRO 100 UNIT/1 ML 3ML VIAL SQ SCH ×6 (07:30→16:44)
[2018-08-17] MEDS: MIDODRINE HCL 5 MG TABLET PO SCH ×3 (07:49→15:34)
[2018-08-17] MEDS: CYANOCOBALAMIN 1,000 MCG TAB PO SCH (07:49)
[2018-08-17] MEDS: VENLAFAXINE HCL 37.5 MG TAB PO SCH ×2 (07:49→16:25)
[2018-08-17] MEDS: FLUDROCORTISONE ACETATE 0.1 MG TAB PO SCH (07:49)
[2018-08-17] MEDS: ACETAMINOPHEN 325 MG/10 ML UDC NG PRN (07:59)
[2018-08-17] MEDS: HEPARIN SOD (PORCINE) 5,000 UNIT/ML VIAL SC SCH (08:02)
[2018-08-17 08:09] LABS: ANION GAP 17.7 mmol/L (8-16); CALCIUM 9.9 mg/dL (8.4-10.2); CREATININE, SERUM 7.98 mg/dL (0.57-1.11); POTASSIUM 4.7 mmol/L (3.5-5.1)
--- NOTE | 2018-08-17 08:15 | Diagnostic Imaging Report ---
EXAM: Modified barium swallow with Speech Pathologist INDICATION: ^F/U FROM PREVIOUS MBS STUDY ^[id number] ^[id number] COMPARISON: None available. RADIATION DOSE: Fluoroscopy Time: 1.5 min Dose (Kerma) Area Product: 4.09 Gycm2 Air Kerma (AK) value has been reviewed. It is below the limits set by the Radiation Protocol Committee (RPC) committee. FINDINGS: See impression IMPRESSION: Laryngeal penetration and silent aspiration noted upon administration of thin liquid consistency. Please see speech pathology report for detailed description and recommendations. Signed by: Dr. Rebel Bagley M.D. on 08/17/2018 8:11 AM
[2018-08-17] MEDS ORDERED: INSULIN GLARGINE 100 UNITS/ML VIAL SQ SCH ×2 (09:00→21:00)
--- NOTE | 2018-08-17 10:45 | NUR ---
Pt unavailable at this time. Pt receiving dialysis. I will follow up as able. FREYA Poon Spiritual Care Department O: [phone] Pager: [phone] ([phone] calling from)
--- NOTE | 2018-08-17 11:07 | NUR ---
ST NOTE: Pt receiving dialysis at 1025, will return if schedule allows to complete NMES to treat dysphagia
--- NOTE | 2018-08-17 11:43 | NUR ---
ORDERS REC'D TO DC PT TODAY TO [facility] DR BOBBY AND DR CLINE AGREE PT CURRENTLY GETTING DIALYSIS ORDERS NOT TO DC FEMORAL LINE AR[facility]OL [facility] WITH KBA NOTIFIED OF DC AND NEED FOR BED MOT IN PACKET AT DESK
--- NOTE | 2018-08-17 11:56 | NUR ---
ok to transfer pt to [place] with rt femoral catheter
--- NOTE | 2018-08-17 12:57 | Progress Note ---
DATE: 08/17/2018 Cardiology Progress Note SUBJECTIVE: No major events overnight. OBJECTIVE: VITAL SIGNS: Temperature afebrile, pulse 83, respiratory rate 16, blood pressure 91/58, and saturating 97% on nasal cannula. GENERAL: Obese female, in no acute distress. CARDIOVASCULAR: Regular rate and rhythm. No murmurs, rubs, or gallops. LUNGS: Clear to auscultation bilaterally. Decreased breath sounds in bilateral bases. ABDOMEN: Obese. Soft, nontender, and nondistended. NEURO AND PSYCH: Alert and oriented to person, place, and time. Normal affect. INPATIENT MEDICATIONS: Reviewed. LABORATORY DATA: Reviewed. TELEMETRY: Monitoring reveals normal sinus rhythm. ASSESSMENT AND PLAN: 1. Hypotension. 2. Septic shock. 3. Respiratory failure. 4. End-stage renal disease. 5. Chronic diastolic heart failure. RECOMMENDATIONS: Continue current cardiovascular medical regimen. Blood pressure is improved, on midodrine. Plan is for discharge to LTAC in the coming days. We will continue to monitor in the meantime. Thank you for this consult. MD MONIKA Merino/MATEUS /[id number]
--- NOTE | 2018-08-17 16:22 | Progress Note ---
DATE: 08/17/2018 Psychiatric Progress Note SUBJECTIVE: The patient is evaluated and events noted. The patient is in the ICU. She is calm and cooperative. She is not confused. She states she is doing much better and less anxious and less depressed. She denies any hallucination. She denies any suicidal ideation. She reports intermittent problem with sleep. She denies any side effects from medication. PHYSICAL EXAMINATION: VITAL SIGNS: Blood pressure low currently 91/48. LABORATORY DATA: Sodium at this time is 132. However, patient is on dialysis three times a week. On the 15 of August, sodium level was 136. ASSESSMENT: 1. Major depressive disorder, recurrent, moderate. 2. Generalized anxiety disorder. PLAN: 1. Continue Effexor 37.5 mg p.o. twice a day. 2. Continue with BuSpar 7.5 mg p.o. three times a day as needed for anxiety. 3. Monitor for mood. 4. Supportive therapy. Thank you for this consultation. Dictated by Lashay Bustillos PA-C Alek Marie MD QTV/MODL /[id number]
--- NOTE | 2018-08-17 18:41 | NUR ---
dr taylor to see pt, ok to transfer and dr swanson will be receiving pt. called jojo with report. cn and sup notified for ambulance.
--- NOTE | 2018-08-17 21:48 | NUR ---
Patient escorted off unit at 2019 by EMS via stretcher. No acute signs of distress noted. vba programmer and housekeeping associate aware of patient's discharge.
--- NOTE | 2018-08-18 17:38 | Discharge Summary ---
FINAL DIAGNOSES: 1. Acute on chronic hypoxic respiratory failure. 2. Septic shock secondary to pneumonia. 3. Morbid obesity. 4. Obstructive sleep apnea. 5. End-stage renal disease. 6. Chronic obstructive pulmonary disease. 7. Hypertension. 8. Diabetes. ADMISSION HISTORY AND HOSPITAL COURSE: Ms. Correa is a 42-year-old female. She presented to the emergency room with complaints of chest pain. The patient was on medical floor, started having worsening shortness of breath, became hypercapnic. Chest x-ray showed evidence of pneumonia and she was intubated and was started on multiple pressors. The patient gradually improved, extubated, and has been doing well, however, has been requiring vasopressors. The patient has been started on Florinef, but still requiring off and on vasopressors to keep the blood pressure up. [facility] care. MD JESUS López/MATEUS /[id number]
== END 2018-08-17 20:19 | DRG 870 ==
LOC: ER 12:35 → ERHOLD 14:59 → IMCU 17:08 → OBSVTOIN 07-24 10:18 → ICU 07-24 11:15
PROVIDERS: ADMIT Internal Medicine; ATTEND Internal Medicine
PROC: 5A1D70Z Performance of Urinary Filtration, Intermittent, Less than 6 Hours Per Day (ICD-10-PCS; 2018-07-22)
PROC: 5A1955Z Respiratory Ventilation, Greater than 96 Consecutive Hours (ICD-10-PCS; principal; 2018-07-24)
PROC: 0BH17EZ Insertion of Endotracheal Airway into Trachea, Via Natural or Artificial Opening (ICD-10-PCS; 2018-07-24)
PROC: 02HV33Z Insertion of Infusion Device into Superior Vena Cava, Percutaneous Approach (ICD-10-PCS; 2018-07-24)
PROC: B548ZZA Ultrasonography of Superior Vena Cava, Guidance (ICD-10-PCS; 2018-07-24)
PROC: 5A1D70Z Performance of Urinary Filtration, Intermittent, Less than 6 Hours Per Day (ICD-10-PCS; 2018-07-24)
PROC: 5A1D70Z Performance of Urinary Filtration, Intermittent, Less than 6 Hours Per Day (ICD-10-PCS; 2018-07-25)
PROC: 5A1D70Z Performance of Urinary Filtration, Intermittent, Less than 6 Hours Per Day (ICD-10-PCS; 2018-07-27)
PROC: 5A1D70Z Performance of Urinary Filtration, Intermittent, Less than 6 Hours Per Day (ICD-10-PCS; 2018-07-28)
PROC: 5A1D70Z Performance of Urinary Filtration, Intermittent, Less than 6 Hours Per Day (ICD-10-PCS; 2018-07-30)
PROC: 5A1D70Z Performance of Urinary Filtration, Intermittent, Less than 6 Hours Per Day (ICD-10-PCS; 2018-08-01)
PROC: 5A1D70Z Performance of Urinary Filtration, Intermittent, Less than 6 Hours Per Day (ICD-10-PCS; 2018-08-03)
PROC: 5A1D70Z Performance of Urinary Filtration, Intermittent, Less than 6 Hours Per Day (ICD-10-PCS; 2018-08-04)
PROC: 5A1D70Z Performance of Urinary Filtration, Intermittent, Less than 6 Hours Per Day (ICD-10-PCS; 2018-08-05)
PROC: 5A1D70Z Performance of Urinary Filtration, Intermittent, Less than 6 Hours Per Day (ICD-10-PCS; 2018-08-07)
PROC: 5A1D70Z Performance of Urinary Filtration, Intermittent, Less than 6 Hours Per Day (ICD-10-PCS; 2018-08-10)
PROC: 30233K1 Transfusion of Nonautologous Frozen Plasma into Peripheral Vein, Percutaneous Approach (ICD-10-PCS; 2018-08-11)
PROC: 30233P1 Transfusion of Nonautologous Frozen Red Cells into Peripheral Vein, Percutaneous Approach (ICD-10-PCS; 2018-08-11)
PROC: 3E0436Z Introduction of Nutritional Substance into Central Vein, Percutaneous Approach (ICD-10-PCS; 2018-08-11)
PROC: 5A1D70Z Performance of Urinary Filtration, Intermittent, Less than 6 Hours Per Day (ICD-10-PCS; 2018-08-11)
PROC: 5A1D70Z Performance of Urinary Filtration, Intermittent, Less than 6 Hours Per Day (ICD-10-PCS; 2018-08-13)
PROC: 5A1D70Z Performance of Urinary Filtration, Intermittent, Less than 6 Hours Per Day (ICD-10-PCS; 2018-08-14)
PROC: 5A1D70Z Performance of Urinary Filtration, Intermittent, Less than 6 Hours Per Day (ICD-10-PCS; 2018-08-17)
DX: A41.01 Sepsis due to Methicillin susceptible Staphylococcus aureus (principal); N18.6 End stage renal disease; J15.211 Pneumonia due to Methicillin susceptible Staphylococcus aureus; J96.22 Acute and chronic respiratory failure with hypercapnia; J96.21 Acute and chronic respiratory failure with hypoxia; R65.21 Severe sepsis with septic shock; K85.90 Acute pancreatitis without necrosis or infection, unspecified; J91.8 Pleural effusion in other conditions classified elsewhere; Z68.44 Body mass index [BMI] 60.0-69.9, adult; I50.32 Chronic diastolic (congestive) heart failure; I13.2 Hypertensive heart and chronic kidney disease with heart failure and with stage 5 chronic kidney disease, or end stage renal disease; F33.2 Major depressive disorder, recurrent severe without psychotic features; E87.2 Acidosis; G47.33 Obstructive sleep apnea (adult) (pediatric); J44.9 Chronic obstructive pulmonary disease, unspecified; E66.01 Morbid (severe) obesity due to excess calories; E11.22 Type 2 diabetes mellitus with diabetic chronic kidney disease; Z99.2 Dependence on renal dialysis; Z91.19 Patient's noncompliance with other medical treatment and regimen; E78.5 Hyperlipidemia, unspecified; E87.5 Hyperkalemia; I25.10 Atherosclerotic heart disease of native coronary artery without angina pectoris; D63.1 Anemia in chronic kidney disease; F41.1 Generalized anxiety disorder; R19.7 Diarrhea, unspecified; R13.10 Dysphagia, unspecified; R11.10 Vomiting, unspecified; M79.7 Fibromyalgia; E87.6 Hypokalemia; R68.81 Early satiety; T45.0X5A Adverse effect of antiallergic and antiemetic drugs, initial encounter; Y92.230 Patient room in hospital as the place of occurrence of the external cause; E11.42 Type 2 diabetes mellitus with diabetic polyneuropathy; R41.0 Disorientation, unspecified; D47.3 Essential (hemorrhagic) thrombocythemia; T45.515A Adverse effect of anticoagulants, initial encounter
CPT/HCPCS: 36415; 36600; 70450; 71045; 71260; 72170; 74018; 74176; 74230; 74470; 76604; 76700; 76937; 78452; 80048; 80053; 80061; 82140; 82150; 82330; 82533; 82550; 82553; 82607; 82746; 82805; 82948; 83036; 83090; 83540; 83605; 83690; 83735; 83880; 83921; 84100; 84132; 84134; 84145; 84439; 84443; 84466; 84478; 84484; 84630; 84702; 85007; 85025; 85027; 85384; 85610; 85651; 85730; 86039; 86140; 86200; 86431; 86704; 86705; 86706; 86850; 86870; 86880; 86900; 86905; 87040; 87070; 87186; 87205; 87340; 87390; 87400; 87493; 90935; 90962; 93005; 93017; 93306; 93308; 94002; 94003; 94660; 96360; 96372; 97139; 99001; 99284; A9502; C1751; C1769; G0378; G0433; G0435; J0456; J0690; J1644; J1720; J1815; J2060; J2250; J2405; J2543; J2550; J2765; J3370; J3420; J3430; J7030; J7050; J7070; P9017; Q4081